=== PATIENT | male | born 1965 | race Caucasian/White ===

== ENCOUNTER 2019-09-29 01:14 | Inpatient (IN) | payer MEDICAID ==
[~2019-09-29] VITALS: Ht 182.9 cm; Wt 65.4 kg
[2019-09-29 02:02] LABS: BASOPHILS 0.5 % (0-2); EOSINOPHILS 1.2 % (0-7); HEMATOCRIT 36.1 % (42.0-54.0); HEMOGLOBIN 11.4 g/dL (13.5-17.5); IMMATURE GRANULOCYTES 0.3 % (0-5); LYMPHOCYTES 16.2 % (15-50); MCH 24.9 pg (26.0-34.0); MCHC 31.6 g/dL (31.0-37.0); MCV 78.8 fL (80.0-100.0); MEAN PLATELET VOLUME 8.4 fL (7.4-10.4); MONOCYTES 11.2 % (2-11); NEUTROPHILS 70.6 % (40-80); PLATELET COUNT 304 10x3/uL (130-400); RBC 4.58 10x6/uL (4.20-6.10); RDW 16.3 % (11.5-14.5)
[2019-09-29 02:08] LABS: UDS - AMPHET POSITIVE QUAL (NEGATIVE); UDS - BARB NEGATIVE QUAL (NEGATIVE); UDS - BENZO NEGATIVE QUAL (NEGATIVE); UDS - COCAINE NEGATIVE QUAL (NEGATIVE); UDS - OPIATE NEGATIVE QUAL (NEGATIVE); UDS - PCP NEGATIVE QUAL (NEGATIVE); UDS - THC NEGATIVE QUAL (NEGATIVE)
[2019-09-29 02:12] LABS: APPEARANCE CLEAR (CLEAR); COLOR YELLOW (YELLOW); GLUCOSE NEGATIVE (NEGATIVE); KETONE NEGATIVE (NEGATIVE); NITRITE NEGATIVE (NEGATIVE); PROTEIN TRACE mg/dL (NEGATIVE)
[2019-09-29 02:13] LABS: BILIRUBIN NEGATIVE (NEGATIVE)
[2019-09-29 02:14] LABS: CALC OSMOLALITY 276 mosm/kg (275-300); CALCIUM 8.6 mg/dL (8.5-10.1); CARBON DIOXIDE 29.6 mmol/L (21.0-32.0); CHLORIDE - SERUM 101 mmol/L (98-107); CREATININE - SERUM 0.7 mg/dL (0.6-1.3); GLUCOSE 95 mg/dL (74-106); POTASSIUM - SERUM 3.5 mmol/L (3.5-5.1); SODIUM 138 mmol/L (136-145); UREA NITROGEN 16 mg/dL (7-18); eGFR NON AFRICAN AMERICAN > 90 mL/min (90-120)
[2019-09-29 02:14] LABS: BACTERIA FEW /hpf (NEGATIVE); CALCIUM OXALATE CRYSTALS 0-5 /hpf (NONE SEEN); EPITHELIAL CELLS 0-5 /hpf (0-5); RED CELLS - URINE 0-5 /hpf (0-5); WHITE CELLS - URINE 0-5 /hpf (NEGATIVE)
[2019-09-29 02:19] LABS: ALBUMIN 2.5 g/dL (3.4-5.0); ALKALINE PHOSPHATASE 121 U/L (46-116); ALT (SGPT) 18 U/L (10-68); AMYLASE - SERUM 28 U/L (25-115); BILIRUBIN - TOTAL 0.34 mg/dL (0.2-1.3); LIPASE 112 U/L (73-393); MAGNESIUM - SERUM 1.9 mg/dL (1.8-2.4); PROTEIN - SERUM 7.6 g/dL (6.4-8.2)
[2019-09-29 05:19] VITALS: BP 162/106; BMI 19.0
[2019-09-29 08:03] VITALS: BP 153/96
--- NOTE | 2019-09-29 09:22 | NUR ---
SPOKE WITH JUAN MONTES TECH. STATED NO TELEMETRY AT THIS TIME. STATED SHE WOULD LET ME KNOW WHEN SOME ARE AVAILABLE.
[2019-09-29 12:15] VITALS: BP 130/88; BMI 19.0
[2019-09-29 15:19] LABS: % SATURATION 10 % (15-55); IRON 22 ug/dl (35-150); TOTAL IRON BIND CAPACITY 203 ug/dl (260-445); UNSAT IRON BIND CAPACITY 181 ug/dl (150-375)
[2019-09-29 15:23] LABS: INR 1.07 (0.85-1.17); PROTIME 13.4 SECONDS (11.6-15.0)
[2019-09-29 17:20] VITALS: BP 143/95
--- NOTE | 2019-09-29 19:00 | NUR ---
GAVE PATIENT PAIN MEDS. EXPLAINED TO PATIENT TO TRY TO DRINK MUCH OF THE GOLYTLEY HE CAN BEFORE MN. PATIENT VERBALIZED UNDERSTANDING. CALL LIGHT WITHIN REACH. IV INTACT.
[2019-09-29 21:00] VITALS: BP 131/82
--- NOTE | 2019-09-29 22:09 | NUR ---
Alert and orented able to voice needs and wants to staff. ON room air, IV to left hand with ns at 125. no redness noted no pain at site. call light and water in reach ABD in distended and frim. denies needs at this time.
[2019-09-30 01:18] VITALS: BP 141/80
[2019-09-30 04:22] VITALS: BP 152/98
[2019-09-30 06:53] LABS: BASOPHILS 0.4 % (0-2); EOSINOPHILS 2.1 % (0-7); HEMATOCRIT 33.9 % (42.0-54.0); HEMOGLOBIN 10.5 g/dL (13.5-17.5); IMMATURE GRANULOCYTES 0.2 % (0-5); LYMPHOCYTES 16.7 % (15-50); MCH 24.2 pg (26.0-34.0); MCV 78.3 fL (80.0-100.0); MEAN PLATELET VOLUME 8.9 fL (7.4-10.4); MONOCYTES 9.1 % (2-11); NEUTROPHILS 71.5 % (40-80); PLATELET COUNT 359 10x3/uL (130-400); RBC 4.33 10x6/uL (4.20-6.10); RDW 16.4 % (11.5-14.5); WBC 5.3 10x3/uL (4.8-10.8)
[2019-09-30 07:24] LABS: CALC OSMOLALITY 273 mosm/kg (275-300); CALCIUM 7.8 mg/dL (8.5-10.1); CARBON DIOXIDE 25.4 mmol/L (21.0-32.0); CHLORIDE - SERUM 103 mmol/L (98-107); CREATININE - SERUM 0.6 mg/dL (0.6-1.3); GLUCOSE 83 mg/dL (74-106); MAGNESIUM - SERUM 1.7 mg/dL (1.8-2.4); PHOSPHOROUS 3.9 mg/dL (2.5-4.9); POTASSIUM - SERUM 3.7 mmol/L (3.5-5.1); SODIUM 138 mmol/L (136-145); eGFR NON AFRICAN AMERICAN > 90 mL/min (90-120)
[2019-09-30 07:29] LABS: UREA NITROGEN 10 mg/dL (7-18)
--- NOTE | 2019-09-30 07:40 | NUR ---
PT RESTING IN BED WITH EYES CLOSED. OPENS EYES SPONTANEOUSLY. RESP EVEN AND UNLABORED. REPORTS PAIN 5/10 AT THIS TMIE. IV TO LEFT FOREARM WITH NS @ 125ML/HR INFUSING VIA PUMP. SITE WITHOUT REDNESS OR EDEMA. ABDOMEN DISTENDED. PT REPORTS BEING NPO SINCE MIDNIGHT FOR UPCOMING PROCEDURE. PT DENIES FURTHER NEEDS AT THIS TIME. CL WITHIN REACH. ENCOURAGE TO CALL WITH NEEDS. CONTINUE POC
[2019-09-30 09:13] LABS: ALPHA FETOPROTEIN -(TUMOR MRK) 1.3 ng/mL (0.0-8.3); CEA 117.8 ng/mL (0.0-4.7)
[2019-09-30 09:22] VITALS: BP 140/82
[2019-09-30 12:28] VITALS: BP 151/91
[2019-09-30 13:13] VITALS: Ht 182.9 cm; Wt 65.4 kg
[2019-09-30 20:14] VITALS: BP 116/83
--- NOTE | 2019-09-30 21:49 | NUR ---
PATIENT IS ALERT AND ORENTED ABLE TO VOICE NEEDS AND WANTS TO STAFF, IV TO LEFT FA WITH NS AT 125ML/HR. NO REDNESS AT IV SITE DENIES PAIN AT SITE. ABDOM IN DISTENDED AND FRIM. RUDD CATH IN PLACE WITH DARK MELBA URINE TO BAG. TELEMETRY IN PLACE. CALL LIGHT AND WATER IN REACH AT BEDSIDE.
[2019-10-01 00:37] VITALS: BP 137/78
[2019-10-01 04:48] VITALS: BP 133/86
[2019-10-01 06:31] LABS: BASOPHILS 0.2 % (0-2); EOSINOPHILS 1.3 % (0-7); HEMATOCRIT 35.4 % (42.0-54.0); HEMOGLOBIN 10.9 g/dL (13.5-17.5); IMMATURE GRANULOCYTES 0.2 % (0-5); LYMPHOCYTES 16.9 % (15-50); MCH 24.3 pg (26.0-34.0); MCHC 30.8 g/dL (31.0-37.0); MCV 78.8 fL (80.0-100.0); MEAN PLATELET VOLUME 9.3 fL (7.4-10.4); MONOCYTES 9.3 % (2-11); NEUTROPHILS 72.1 % (40-80); PLATELET COUNT 339 10x3/uL (130-400); RBC 4.49 10x6/uL (4.20-6.10); RDW 16.6 % (11.5-14.5); WBC 5.4 10x3/uL (4.8-10.8)
[2019-10-01 06:55] LABS: CALC OSMOLALITY 270 mosm/kg (275-300); CALCIUM 7.6 mg/dL (8.5-10.1); CARBON DIOXIDE 26.1 mmol/L (21.0-32.0); CHLORIDE - SERUM 103 mmol/L (98-107); CREATININE - SERUM 0.7 mg/dL (0.6-1.3); GLUCOSE 79 mg/dL (74-106); MAGNESIUM - SERUM 1.8 mg/dL (1.8-2.4); PHOSPHOROUS 4.2 mg/dL (2.5-4.9); POTASSIUM - SERUM 3.9 mmol/L (3.5-5.1); SODIUM 137 mmol/L (136-145); UREA NITROGEN 8 mg/dL (7-18); eGFR NON AFRICAN AMERICAN > 90 mL/min (90-120)
--- NOTE | 2019-10-01 07:54 | NUR ---
AWAKE AND ALERT. ORIENTED X3. C/O ABDOMINAL PAIN THIS AM. WILL GIVE PRN WHEN DUE. LUNGS ARE CLEAR BUT SOMEWHAT DIMINISHED. NO COUGH NOTED. SKIN IS INTACT WTIHOUT REDNESS. IV TO LEFT AC AREA IS PATENT WTIHOUT REDNESS AT INSERTION SITE. DENIES NEEDS FOR NOW. NPO FOR POSSIBLE SURGERY TODAY.
[2019-10-01 08:06] VITALS: BP 137/80
--- NOTE | 2019-10-01 08:35 | NUR ---
REQUESTED AND GIVNE 4MG MORPHINE SLOW IVP FOR C/O ABDOMINAL PAIN LEVEL 10. WILL MONITOR.
--- NOTE | 2019-10-01 09:05 | NUR ---
OFF UNIT VIA BED TO SURGERY. CONSENTS SIGNED.
--- NOTE | 2019-10-01 09:40 | NUR ---
Nutrition follow-up: Pt NPO for lap colonoscopy 2/2 obstructing mass labs reviewed RDN following.
[2019-10-01 14:05] VITALS: BP 143/86
--- NOTE | 2019-10-01 14:08 | NUR ---
RETURNED FROM SURGERY. A/O. OSTOMY PATENT WITH BLOODY DRAINAGE. DENIES NEEDS.
[2019-10-01 16:44] VITALS: BP 132/87
--- NOTE | 2019-10-01 19:00 | NUR ---
BEDSIDE REPORT RECEIVED AND CARE OF PT ASSUMED. PT LYING IN LOW HINES'S POSITION WITH EYES CLOSED. DRESSING ON MINLINE INCISION INTACT...STAINING / DRAINAGE MARKED. LEFT AC PATENT WITH NS INFUSING AT 125 ML/HR. PERSONAL BANKING ADVISOR WITH DILAUDID IN USE FOR PAIN CONTROL. RUDD CATHETER DRAINING TO GRAVITY WITH YELLOW URINE IN COLLECTION BAG. TELEMETRY IN PLACE. WILL MONITOR FOR NEEDS.
[2019-10-01 20:16] VITALS: BP 128/87
--- NOTE | 2019-10-01 21:34 | NUR ---
HS MEDICATIONS GIVEN. WILL CONTINUE TO MONITOR FOR NEEDS.
--- NOTE | 2019-10-01 21:35 | NUR ---
STARTED PROTONIX DRIP AT 10 ML/HR PER NEW ORDER.
[2019-10-02] VITALS (7 sets, daily range): BP systolic 123–145; BP diastolic 57–89
[2019-10-02 02:18] LABS: BASOPHILS 0.2 % (0-2); EOSINOPHILS 0 % (0-7); HEMATOCRIT 35.1 % (42.0-54.0); HEMOGLOBIN 10.8 g/dL (13.5-17.5); IMMATURE GRANULOCYTES 0.3 % (0-5); LYMPHOCYTES 12.4 % (15-50); MCH 24.4 pg (26.0-34.0); MCHC 30.8 g/dL (31.0-37.0); MCV 79.2 fL (80.0-100.0); MEAN PLATELET VOLUME 8.9 fL (7.4-10.4); MONOCYTES 11.5 % (2-11); NEUTROPHILS 75.6 % (40-80); PLATELET COUNT 350 10x3/uL (130-400); RBC 4.43 10x6/uL (4.20-6.10); RDW 16.6 % (11.5-14.5); WBC 6.5 10x3/uL (4.8-10.8)
[2019-10-02 02:23] LABS: CALC OSMOLALITY 271 mosm/kg (275-300); CALCIUM 8.3 mg/dL (8.5-10.1); CARBON DIOXIDE 22.9 mmol/L (21.0-32.0); CHLORIDE - SERUM 103 mmol/L (98-107); CREATININE - SERUM 0.8 mg/dL (0.6-1.3); GLUCOSE 110 mg/dL (74-106); MAGNESIUM - SERUM 1.6 mg/dL (1.8-2.4); SODIUM 136 mmol/L (136-145); eGFR NON AFRICAN AMERICAN > 90 mL/min (90-120)
[2019-10-02 02:28] LABS: UREA NITROGEN 11 mg/dL (7-18)
--- NOTE | 2019-10-02 08:06 | NUR ---
PT RESTING IN BED WITH EYES OPEN, NO S/S OF DISTRESS AT THIS TIME. COLOSTOMY LOCATED TO LLQ. IV LOCATED TO LEFT AC CURRENTLY RUNNING @ 125, PROTONIX @ 10, AND DILAUDID ROLL HAULER PRESENT 0.2. RUDD CATH PRESENT. DENIES NEEDS AT THIS TIME, WILL CONT TO MONITOR.
[2019-10-02 12:44] LABS: HEMATOCRIT 33.3 % (42.0-54.0); HEMOGLOBIN 10.5 g/dL (13.5-17.5)
--- NOTE | 2019-10-02 19:00 | NUR ---
BEDSIDE REPORT RECEIVED AND CARE OF PT ASSUMED. PT LYING IN LOW HINES'S POSITION WITH EYES CLOSED. IV TO LEFT AC PATENT WITH NS INFUSING AT 125 ML/HR, PROTONIX AT 10ML/HR, AND DILAUDID DIRECTOR OF WORKFORCE DEVELOPMENT IN USE FOR PAIN CONTROL. TELEMETRY IN PLACE PER ORDER. DRESSING ON ABDOMEN INTACT. WILL MONITOR FOR NEEDS.
[2019-10-02 19:33] LABS: HEMATOCRIT 31.2 % (42.0-54.0); HEMOGLOBIN 9.6 g/dL (13.5-17.5)
--- NOTE | 2019-10-02 20:40 | NUR ---
HS MEDICATIONS GIVEN TO INCLUDE ONE TIME DOSE OF ATIVAN 1 MG IVP PER ORDER. WILL CONTINUE TO MONITOR FOR NEEDS.
[2019-10-03 01:38] LABS: BASOPHILS 0.2 % (0-2); EOSINOPHILS 0.5 % (0-7); HEMATOCRIT 30.6 % (42.0-54.0); HEMOGLOBIN 9.5 g/dL (13.5-17.5); IMMATURE GRANULOCYTES 0.3 % (0-5); LYMPHOCYTES 9.4 % (15-50); MCH 24.5 pg (26.0-34.0); MCV 78.9 fL (80.0-100.0); MEAN PLATELET VOLUME 8.3 fL (7.4-10.4); MONOCYTES 11.4 % (2-11); NEUTROPHILS 78.2 % (40-80); RBC 3.88 10x6/uL (4.20-6.10); RDW 16.9 % (11.5-14.5); WBC 6.3 10x3/uL (4.8-10.8)
[2019-10-03 01:41] LABS: PLATELET COUNT 273 10x3/uL (130-400)
[2019-10-03 01:50] LABS: CALC OSMOLALITY 272 mosm/kg (275-300); CALCIUM 7.7 mg/dL (8.5-10.1); CARBON DIOXIDE 25.5 mmol/L (21.0-32.0); CHLORIDE - SERUM 102 mmol/L (98-107); CREATININE - SERUM 0.6 mg/dL (0.6-1.3); GLUCOSE 92 mg/dL (74-106); MAGNESIUM - SERUM 1.9 mg/dL (1.8-2.4); POTASSIUM - SERUM 3.8 mmol/L (3.5-5.1); SODIUM 137 mmol/L (136-145); UREA NITROGEN 10 mg/dL (7-18); eGFR NON AFRICAN AMERICAN > 90 mL/min (90-120)
[2019-10-03 02:05] LABS: PHOSPHOROUS 3.1 mg/dL (2.5-4.9)
[2019-10-03 04:00] VITALS: BP 150/97
--- NOTE | 2019-10-03 04:56 | NUR ---
GAVE HYDRALAZINE IVP FOR ELEVATED BLOOD PRESSURE OF 150/97 PER PRN ORDER.
[2019-10-03 08:40] VITALS: BP 125/91
--- NOTE | 2019-10-03 09:00 | NUR ---
ALERT AND ORIENTED X4 WITH ABDOMINAL DRESSINGS INTACT WITH COLOSTOMY INTACT AND MONITORING OUTPUT. TELEMETRY INTACT AND DENEIS ANY CHEST PAIN OR DISCOMFORT. ESTATE PLANNING ATTORNEY DILAUDID ORDERED. ENCOURAGED TO USE CALLL LIGHT FOR ASSIST.
[2019-10-03 13:22] VITALS: BP 131/92
[2019-10-03 16:46] VITALS: BP 145/92
--- NOTE | 2019-10-03 17:18 | MORECARE ---
CASE MANAGEMENT DISCHARGE SUMMARY PATIENT: ZEINAB ORTIZ UNIT: [id number] ADM DATE: 09/29/19 AGE: 54 : 65 SEX: M ROOM/BED: D.2228 AUTHOR: JULIA ROJAS PHYSICIAN: REFERRING PHYSICIAN: RON PARRY MD DATE OF SERVICE: 10/03/19 Discharge Plan Patient Name: ZEINAB ORTIZ Facility: [facility]:[place] : 1965 Planned Disposition: Anticipated Discharge Date: Discharge Date: Expected LOS: Initial Reviewer: [email or web address] Initial Review Date: 10/03/2019 Generated: 10/03/19 6:17 pm External Providers External Provider: [facility] Next Contact Date: Service Request Date: Service Type: Resolution: Reviewer: Comments: Patient Name: ZEINAB ORTIZ Page 44663 at 1718 All edits/amendments must be made on the electronic document DICTATION DATE: 10/03/191716 CONVEYOR WORKER: RIKI 10/03/191716 RPT#: [id number] DC DATE: STATUS: ADM IN [facility] [address] [place] [address] END OF REPORT
--- NOTE | 2019-10-03 17:24 | MORECARE ---
CASE MANAGEMENT DISCHARGE SUMMARY PATIENT: ZEINAB ORTIZ UNIT: [id number] ADM DATE: 09/29/19 AGE: 54 : 65 SEX: M ROOM/BED: D.2228 AUTHOR: JULIA ROJAS PHYSICIAN: REFERRING PHYSICIAN: RON PARRY MD DATE OF SERVICE: 10/03/19 Discharge Plan Patient Name: ZEINAB ORTIZ Facility: [facility]:[place] : 1965 Planned Disposition: Anticipated Discharge Date: Discharge Date: Expected LOS: Initial Reviewer: [email or web address] Initial Review Date: 10/03/2019 Generated: 10/03/19 6:24 pm Comments DCP- Discharge Planning Updated by [email or web address]: Collette Rowland on 10/03/19 4:[address] Patient Name: ZEINAB ORTIZ Admission Status: ER Accout number: [id number] Admission Date: 09-29-2019 : 1965 Admission Diagnosis:MALIGNANT NEOPLASM OF COLON, UNSPECIFIED Attending: RON PARRY Current LOS: 4 Anticipated DC Date: Planned Disposition: Primary Insurance: MEDICAID [place] PENDING Discharge Planning Comments: CM met with patient at bedside after explaining CM role and obtaining verbal consent. CM discussed availability / needs of home health, REHAB , HOSPICE AND medical equipment. PATIENT WOULD LIKE [facility] AT THEIR INPATIENT FACILITY IF POSSIBLE. I HAVE CONTACTED MARQUIS WITH [facility] AND FAXED DOCUMENTS TO THEM. THEY ARE PROCESSING IT AND PLANNING TO SEND THEIR NURSE OUT IN SEVERAL HOURS. I ALSO GAVE PATIENT BROSHURES. CM WILL FOLLOW AND ASSIST NEEDED. Topper Press Operator: Collette Rowland Last DP export: 10/03/19 4:18 Patient Name: ZEINAB ORTIZ Page 44032 at 5274 All edits/amendments must be made on the electronic document DICTATION DATE: 10/03/191723 ANNEALING TORCH OPERATOR: RIKI 10/03/191723 RPT#: [id number] DC DATE: STATUS: ADM IN [facility] [id number] [place] [address] END OF REPORT
--- NOTE | 2019-10-03 19:00 | NUR ---
BEDSIDE REPORT RECEIVED AND CARE OF PT ASSUMED. PT LYING IN LOW HINES'S POSITION WITH EYES CLOSED. IV TO LEFT AC PATENT WITH NS INFUSING AT 125 ML/HR. ACCOUNT INSTALLER W/ DILAUDID IN USE FOR PAIN CONTROL. RUDD CATHETER DRAINING TO GRAVITY WITH YELLOW URINE IN COLLECION BAG. OSTOMY STOMA PINK AND MOIST WITH SMALL AMOUNT OF BLOODY DRAINAGE IN COLLECTION BAG. WILL MONITOR FOR NEEDS.
--- NOTE | 2019-10-03 19:12 | MORECARE ---
CASE MANAGEMENT DISCHARGE SUMMARY PATIENT: ZEINAB ORTIZ UNIT: [id number] ADM DATE: 09/29/19 AGE: 54 : 65 SEX: M ROOM/BED: D.2228 AUTHOR: BOBDOC PHYSICIAN: REFERRING PHYSICIAN: RON PARRY MD DATE OF SERVICE: 10/03/19 Discharge Plan Patient Name: ZEINAB ORTIZ Facility: [facility]:[place] : 1965 Planned Disposition: Anticipated Discharge Date: Discharge Date: Expected LOS: Initial Reviewer: [email or web address] Initial Review Date: 10/03/2019 Generated: 10/03/19 8:12 pm Comments DCP- Discharge Planning Updated by [email or web address]: Collette Rowland on 10/03/19 6:[address] Patient Name: ZEINAB ORTIZ Admission Status: ER Accout number: [id number] Admission Date: 09-29-2019 : 1965 Admission Diagnosis:MALIGNANT NEOPLASM OF COLON, UNSPECIFIED Attending: RON PARRY Current LOS: 4 Anticipated DC Date: Planned Disposition: Primary Insurance: MEDICAID [place] PENDING Discharge Planning Comments: CM met with patient at bedside after explaining CM role and obtaining verbal consent. CM discussed availability / needs of home health, REHAB , HOSPICE AND medical equipment. PATIENT WOULD LIKE [facility] AT THEIR INPATIENT FACILITY IF POSSIBLE. I HAVE CONTACTED MARQUIS WITH [facility] AND FAXED DOCUMENTS TO THEM. THEY ARE PROCESSING IT AND PLANNING TO SEND THEIR NURSE OUT IN SEVERAL HOURS. I ALSO GAVE PATIENT BROSHURES. CM WILL FOLLOW AND ASSIST NEEDED. 4 H Youth Development Specialist: Collette Rowland Appended by Collette Rowland on 10/03/2019 19:09 CANDY SPREADER: JAMES RN WITH [facility] CAME OUT TO ASSES PATIENT. IT DOESN'T LOOK LIKE HE IS APPROPRIATE FOR THEIR INPATIENT UNIT RIGHT NOW. STATES WE NEED TO WORK ON PLACEMENT FOR HIM AND THEY ARE STARTING THEIR ADMISSION PROCESS. SOME OPTIONS FOR PLACEMENT MAY BE [facility], [facility], [facility] OR [facility]. JAMES STATES PATIENT WANTS TO THINK ON IT OVER NIGHT. HOSPICE WILL SEND AN ACCESS NURSE OUT TOMORROW AND WILL TALK TO US AND THE PATIENT. CM TO FOLLOW AND ASSIST. Last DP export: 10/03/19 4:24 Patient Name: ZEINAB ORTIZ Page 42600 at 191 All edits/amendments must be made on the electronic document DICTATION DATE: 10/03/191911 GROCERY STORE BAGGER: RIKI 10/03/191911 RPT#: [id number] DC DATE: STATUS: ADM IN [facility] [address] [place] [address] END OF REPORT
[2019-10-03 20:11] VITALS: BP 146/93
--- NOTE | 2019-10-03 20:43 | NUR ---
HS MEDICAITONS GIVEN TO INCLUDE SCHEDULED ATIVAN FOR SLEEP. WILL CONTINUE TO MONITOR FOR NEEDS.
[2019-10-04 00:52] VITALS: BP 138/91
[2019-10-04 05:19] VITALS: BP 140/102
[2019-10-04 06:07] LABS: BASOPHILS 0.2 % (0-2); EOSINOPHILS 0.5 % (0-7); HEMATOCRIT 30.3 % (42.0-54.0); HEMOGLOBIN 9.3 g/dL (13.5-17.5); IMMATURE GRANULOCYTES 0.2 % (0-5); MCHC 30.7 g/dL (31.0-37.0); MCV 78.1 fL (80.0-100.0); MEAN PLATELET VOLUME 8.7 fL (7.4-10.4); MONOCYTES 8.7 % (2-11); NEUTROPHILS 79.4 % (40-80); RBC 3.88 10x6/uL (4.20-6.10); RDW 16.8 % (11.5-14.5)
[2019-10-04 06:19] LABS: PLATELET COUNT 360 10x3/uL (130-400)
[2019-10-04 06:43] LABS: CALC OSMOLALITY 263 mosm/kg (275-300); CALCIUM 7.9 mg/dL (8.5-10.1); CARBON DIOXIDE 27.6 mmol/L (21.0-32.0); CHLORIDE - SERUM 100 mmol/L (98-107); CREATININE - SERUM 0.6 mg/dL (0.6-1.3); GLUCOSE 98 mg/dL (74-106); MAGNESIUM - SERUM 1.7 mg/dL (1.8-2.4); PHOSPHOROUS 3.3 mg/dL (2.5-4.9); POTASSIUM - SERUM 3.3 mmol/L (3.5-5.1); SODIUM 132 mmol/L (136-145); UREA NITROGEN 9 mg/dL (7-18); eGFR NON AFRICAN AMERICAN > 90 mL/min (90-120)
--- NOTE | 2019-10-04 07:43 | NUR ---
ALERT AND ORIENTED. LUNGS CLEAR BILATERALLY. HEART SOUNDS S1 AND S2 HEARD IN ALL [place]. BOWEL SOUNDS HYPOACTIVE X 4. LEFT SIDE OSTOMY PATENT. IV TO LEFT AC PATENT WITHOUT REDNESS. RIGHT CHEST PORT PATENT WITHOUT REDNESS. DENIES PAIN. DENIES NEEDS. BED LOW. CALL YATES AND PERSONAL ITEMS IN REACH. WILL CONTINUE TO MONITOR.
--- NOTE | 2019-10-04 07:49 | NUR ---
ADDITION TO PREVIOUS NOTE. RUDD IN PLACE AND PATENT. TELEMETRY IN PLACE AT .
[2019-10-04 07:59] VITALS: BP 169/101
--- NOTE | 2019-10-04 08:24 | NUR ---
BOLUS DOSE GIVEN FROM FIREPOT OPERATOR AND TENDER PER REQUEST. 0.4MG BOLUS GIVEN PER ORDER. PRN ZOFRAN GIVEN PER REQUEST.
--- NOTE | 2019-10-04 09:48 | MORECARE ---
CASE MANAGEMENT DISCHARGE SUMMARY PATIENT: ZEINAB ORTIZ UNIT: [id number] ADM DATE: 09/29/19 AGE: 54 : 65 SEX: M ROOM/BED: D.2228 AUTHOR: JULIA ROJAS PHYSICIAN: REFERRING PHYSICIAN: RON PARRY MD DATE OF SERVICE: 10/04/19 Discharge Plan Patient Name: ZEINAB ORTIZ Facility: [facility]:[place] : 1965 Planned Disposition: Anticipated Discharge Date: Discharge Date: Expected LOS: Initial Reviewer: [email or web address] Initial Review Date: 10/03/2019 Generated: 10/04/19 10:47 am Comments DCP- Discharge Planning Updated by [email or web address]: Soraida Crabtree on 10/04/19 8:[address] CM went to room to meet with patient and he has asked me to come back this afternoon, states he is tired. I will come back at a later time to discuss housing options/homeless shelters. CM will continue to follow and assist with discharge planning/needs. DCP- Discharge Planning Updated by [email or web address]: Collette Rowland on 10/03/19 6:[address] Patient Name: ZEINAB ORTIZ Admission Status: ER Accout number: [id number] Admission Date: 09-29-2019 : 1965 Admission Diagnosis:MALIGNANT NEOPLASM OF COLON, UNSPECIFIED Attending: RON PARRY Current LOS: 4 Anticipated DC Date: Planned Disposition: Primary Insurance: MEDICAID [place] PENDING Discharge Planning Comments: CM met with patient at bedside after explaining CM role and obtaining verbal consent. CM discussed availability / needs of home health, REHAB , HOSPICE AND medical equipment. PATIENT WOULD LIKE [facility] AT THEIR INPATIENT FACILITY IF POSSIBLE. I HAVE CONTACTED MARQUIS WITH [facility] AND FAXED DOCUMENTS TO THEM. THEY ARE PROCESSING IT AND PLANNING TO SEND THEIR NURSE OUT IN SEVERAL HOURS. I ALSO GAVE PATIENT BROSHURES. CM WILL FOLLOW AND ASSIST NEEDED. Slip Cover Seamstress: Collette Rowland Appended by Collette Rowland on 10/03/2019 19:09 CITY SURVEYOR: JAMES RN WITH [facility] CAME OUT TO ASSES PATIENT. IT DOESN'T LOOK LIKE HE IS APPROPRIATE FOR THEIR INPATIENT UNIT RIGHT NOW. STATES WE NEED TO WORK ON PLACEMENT FOR HIM AND THEY ARE STARTING THEIR ADMISSION PROCESS. SOME OPTIONS FOR PLACEMENT MAY BE [facility], [place], [facility] OR [facility]. JAMES STATES PATIENT WANTS TO THINK ON IT OVER NIGHT. HOSPICE WILL SEND AN ACCESS NURSE OUT TOMORROW AND WILL TALK TO US AND THE PATIENT. CM TO FOLLOW AND ASSIST. Last DP export: 10/03/19 6:13 Patient Name: ZEINAB ORTIZ Page 61338 at 0948 All edits/amendments must be made on the electronic document DICTATION DATE: 10/04/19946 MANAGER FIELD SERVICES: RIKI 10/04/19946 RPT#: [id number] DC DATE: STATUS: ADM IN [facility] [address] [place] [address] END OF REPORT
[2019-10-04 12:50] VITALS: BP 166/78
--- NOTE | 2019-10-04 13:45 | NUR ---
RESTING IN BED. DENIES NEEDS. ZOFRAN DRIP SET UP. POTASSIUM GIVEN FOR K 3.1 REDRAW. OSTOMY WITH SMALL AMOUNT OF BLOOD IN BAG. WILL CONTINUE TO MONITOR.
--- NOTE | 2019-10-04 14:58 | NUR ---
Information packet given on understanding your ostomy. Will return for any questions and demonstration on removal and application of appliance.
[2019-10-04 16:08] VITALS: BP 132/103
--- NOTE | 2019-10-04 16:47 | MORECARE ---
CASE MANAGEMENT DISCHARGE SUMMARY PATIENT: ZEINAB ORTIZ UNIT: [id number] ADM DATE: 09/29/19 AGE: 54 : 65 SEX: M ROOM/BED: D.2228 AUTHOR: BOBDOC PHYSICIAN: REFERRING PHYSICIAN: RON PARRY MD DATE OF SERVICE: 10/04/19 Discharge Plan Patient Name: ZEINAB ORTIZ Facility: [facility]:[place] : 1965 Planned Disposition: Anticipated Discharge Date: Discharge Date: Expected LOS: Initial Reviewer: [id number] Initial Review Date: 10/03/2019 Generated: 10/04/19 5:47 pm Comments DCP- Discharge Planning Updated by [email or web address]: Soraidaambreen Crabtree on 10/04/19 3:[address] Patient is sleeping. I will meet with him in the morning. CM will continue to follow and assist with discharge planning/needs. DCP- Discharge Planning Updated by [id number]: Soraida Crabtree on 10/04/19 8:[address] CM went to room to meet with patient and he has asked me to come back this afternoon, states he is tired. I will come back at a later time to discuss housing options/homeless shelters. CM will continue to follow and assist with discharge planning/needs. DCP- Discharge Planning Updated by [id number]: Collette Rowland on 10/03/19 6:[address] Patient Name: ZEINAB ORTIZ Admission Status: ER Accout number: [id number] Admission Date: 09-29-2019 : 1965 Admission Diagnosis:MALIGNANT NEOPLASM OF COLON, UNSPECIFIED Attending: RON PARRY Current LOS: 4 Anticipated DC Date: Planned Disposition: Primary Insurance: MEDICAID [place] PENDING Discharge Planning Comments: CM met with patient at bedside after explaining CM role and obtaining verbal consent. CM discussed availability / needs of home health, REHAB , HOSPICE AND medical equipment. PATIENT WOULD LIKE [facility] AT THEIR INPATIENT FACILITY IF POSSIBLE. I HAVE CONTACTED MARQUIS WITH [facility] AND FAXED DOCUMENTS TO THEM. THEY ARE PROCESSING IT AND PLANNING TO SEND THEIR NURSE OUT IN SEVERAL HOURS. I ALSO GAVE PATIENT BROSHURES. CM WILL FOLLOW AND ASSIST NEEDED. Rheumatology Specialist: Collette Rowland Appended by Collette Rowland on 10/03/2019 19:09 DISC INSPECTOR: JAMES RN WITH [facility] CAME OUT TO ASSES PATIENT. IT DOESN'T LOOK LIKE HE IS APPROPRIATE FOR THEIR INPATIENT UNIT RIGHT NOW. STATES WE NEED TO WORK ON PLACEMENT FOR HIM AND THEY ARE STARTING THEIR ADMISSION PROCESS. SOME OPTIONS FOR PLACEMENT MAY BE [facility], [facility], [facility] OR [facility]. JAMES STATES PATIENT WANTS TO THINK ON IT OVER NIGHT. HOSPICE WILL SEND AN ACCESS NURSE OUT TOMORROW AND WILL TALK TO US AND THE PATIENT. CM TO FOLLOW AND ASSIST. Last DP export: 10/04/19 8:48 Patient Name: ZEINAB ORTIZ Page 14708 at 3237 All edits/amendments must be made on the electronic document DICTATION DATE: 10/04/191646 YARN TWISTER: RIKI 10/04/191646 RPT#: [id number] DC DATE: STATUS: ADM IN [facility] [address] [place] [address] END OF REPORT
--- NOTE | 2019-10-04 17:36 | NUR ---
RESTING IN BED. DENIES NEEDS. WILL CONTINUE TO MONITOR.
--- NOTE | 2019-10-04 19:01 | NUR ---
RESTING IN BED. DENIES NEEDS. BED LOW. CALL YATES AND PERSONAL ITEMS IN REACH.
--- NOTE | 2019-10-04 20:00 | NUR ---
ASSESSMENT PER FLOWSHEET. IV PATENT LEFT AC WITH NS AT 125CC'S/HR RT CHEST INFUSAPORT IS SALINE LOCKED. RUDD TO BEDSIDE DRAINAGE WITH MELBA COLORED UA.BUSINESS SERVICES ANALYST OF DILAUDID IN USE WITH SETTINGS AT 0.2MG Q10MIN W/4MG Q4HR L/O.COLOSTOMY IN PLACE.
[2019-10-04 20:42] VITALS: BP 140/95
--- NOTE | 2019-10-04 22:00 | NUR ---
MEDS PER MAR.
--- NOTE | 2019-10-05 | NUR ---
EYES CLOSED RESPIRATIONS WITH EASE AND UNLABORED. ZOFRAN GTT INFUSING AT 4.7CC'S/HR.
[2019-10-05 01:06] VITALS: BP 140/81
--- NOTE | 2019-10-05 04:00 | NUR ---
EYES CLOSED RESPIRATIONS WITH EASE AND UNLABORED.
[2019-10-05 04:49] VITALS: BP 144/92
[2019-10-05 06:39] LABS: BASOPHILS 0.3 % (0-2); EOSINOPHILS 1.6 % (0-7); HEMATOCRIT 28.9 % (42.0-54.0); HEMOGLOBIN 8.9 g/dL (13.5-17.5); IMMATURE GRANULOCYTES 0.3 % (0-5); LYMPHOCYTES 15.2 % (15-50); MCH 24.4 pg (26.0-34.0); MCHC 30.8 g/dL (31.0-37.0); MCV 79.2 fL (80.0-100.0); MEAN PLATELET VOLUME 8.8 fL (7.4-10.4); MONOCYTES 9.3 % (2-11); NEUTROPHILS 73.3 % (40-80); PLATELET COUNT 369 10x3/uL (130-400); RBC 3.65 10x6/uL (4.20-6.10); RDW 16.7 % (11.5-14.5)
[2019-10-05 06:46] LABS: WBC 3.9 10x3/uL (4.8-10.8)
[2019-10-05 06:48] LABS: CALC OSMOLALITY 279 mosm/kg (275-300); CALCIUM 7.6 mg/dL (8.5-10.1); CARBON DIOXIDE 28.9 mmol/L (21.0-32.0); CHLORIDE - SERUM 106 mmol/L (98-107); CREATININE - SERUM 0.7 mg/dL (0.6-1.3); GLUCOSE 103 mg/dL (74-106); POTASSIUM - SERUM 4.3 mmol/L (3.5-5.1); SODIUM 141 mmol/L (136-145); UREA NITROGEN 10 mg/dL (7-18); eGFR NON AFRICAN AMERICAN > 90 mL/min (90-120)
--- NOTE | 2019-10-05 07:20 | NUR ---
ALERT AND ORIENTED. LUNGS CLEAR BILATERALLY. HEART SOUNDS S1 AND S2 HEARD IN ALL BAROL[place]. BOWEL SOUNDS HYPOACTIVE X 4. LEFT SIDE OSTOMY PATENT. RIGHT CHEST PORT SL. LEFT AC PATENT WITHOUT REDNESS. RUDD IN PLACE AND PATENT. TELEMETRY IN PLACE. DENIES NEEDS. BED LOW. CALL YATES AND PERSONAL ITEMS IN REACH. WILL CONTINUE TO MONITOR.
[2019-10-05 09:05] VITALS: BP 148/91
--- NOTE | 2019-10-05 09:24 | MORECARE ---
CASE MANAGEMENT DISCHARGE SUMMARY PATIENT: ZEINAB ORTIZ UNIT: [id number] ADM DATE: 09/29/19 AGE: 54 : 65 SEX: M ROOM/BED: D.2228 AUTHOR: JULIA ROJAS PHYSICIAN: REFERRING PHYSICIAN: RON PARRY MD DATE OF SERVICE: 10/05/19 Discharge Plan Patient Name: ZEINAB ORTIZ Facility: [facility]:[place] : 1965 Planned Disposition: Hospice Medical Facility Anticipated Discharge Date: Discharge Date: Expected LOS: Initial Reviewer: [email or web address] Initial Review Date: 10/03/2019 Generated: 10/05/19 10:24 am Comments DCP- Discharge Planning Updated by [email or web address]: Soraida Crabtree on 10/04/19 3:[address] Patient is sleeping. I will meet with him in the morning. CM will continue to follow and assist with discharge planning/needs. DCP- Discharge Planning Updated by [email or web address]: Soraida Crabtree on 10/04/19 8:[address] CM went to room to meet with patient and he has asked me to come back this afternoon, states he is tired. I will come back at a later time to discuss housing options/homeless shelters. CM will continue to follow and assist with discharge planning/needs. DCP- Discharge Planning Updated by [id number]: Collette Rowland on 10/03/19 6:[address] Patient Name: ZEINAB ORTIZ Admission Status: ER Accout number: [id number] Admission Date: 09-29-2019 : 1965 Admission Diagnosis:MALIGNANT NEOPLASM OF COLON, UNSPECIFIED Attending: RON PARRY Current LOS: 4 Anticipated DC Date: Planned Disposition: Primary Insurance: MEDICAID [place] PENDING Discharge Planning Comments: CM met with patient at bedside after explaining CM role and obtaining verbal consent. CM discussed availability / needs of home health, REHAB , HOSPICE AND medical equipment. PATIENT WOULD LIKE [facility] AT THEIR INPATIENT FACILITY IF POSSIBLE. I HAVE CONTACTED MARQUIS WITH [facility] AND FAXED DOCUMENTS TO THEM. THEY ARE PROCESSING IT AND PLANNING TO SEND THEIR NURSE OUT IN SEVERAL HOURS. I ALSO GAVE PATIENT BROSHURES. CM WILL FOLLOW AND ASSIST NEEDED. Machine Maintenance: Collette Rowland Appended by Collette Rowland on 10/03/2019 19:09 CHILD PROTECTIVE SERVICES SOCIAL WORKER: JAMES RN WITH [facility] CAME OUT TO ASSES PATIENT. IT DOESN'T LOOK LIKE HE IS APPROPRIATE FOR THEIR INPATIENT UNIT RIGHT NOW. STATES WE NEED TO WORK ON PLACEMENT FOR HIM AND THEY ARE STARTING THEIR ADMISSION PROCESS. SOME OPTIONS FOR PLACEMENT MAY BE [facility], [facility], [facility] OR [facility]. JAMES STATES PATIENT WANTS TO THINK ON IT OVER NIGHT. HOSPICE WILL SEND AN ACCESS NURSE OUT TOMORROW AND WILL TALK TO US AND THE PATIENT. CM TO FOLLOW AND ASSIST. Last DP export: 10/04/19 3:47 Patient Name: ZEINAB ORTIZ Page [id number] at 0924 All edits/amendments must be made on the electronic document DICTATION DATE: 10/05/19923 HIM TECH: RIKI 10/05/19923 RPT#: [id number] DC DATE: STATUS: ADM IN [facility] [address] [place] [address] END OF REPORT
--- NOTE | 2019-10-05 09:32 | MORECARE ---
CASE MANAGEMENT DISCHARGE SUMMARY PATIENT: ZEINAB ORTIZ UNIT: [id number] ADM DATE: 09/29/19 AGE: 54 : 65 SEX: M ROOM/BED: D.2228 AUTHOR: JULIA ROJAS PHYSICIAN: REFERRING PHYSICIAN: RON PARRY MD DATE OF SERVICE: 10/05/19 Discharge Plan Patient Name: ZEINAB ORTIZ Facility: [facility]:[place] : 1965 Planned Disposition: Hospice Medical Facility Anticipated Discharge Date: Discharge Date: Expected LOS: Initial Reviewer: [email or web address] Initial Review Date: 10/03/2019 Generated: 10/05/19 10:31 am Comments DCP- Discharge Planning Updated by [email or web address]: Soraida Crabtree on 10/05/19 8:[address] CM met with patient to discuss discharge plan. I instructed him on going to a LTC mcfp with his Medicaid vs LTC mcfp for hospice. He states he has decided to do mcfp with [facility] at this time. I called [facility] and spoke with Jaden, he states he will come out this afternoon to see the patient. HAKEEM for [facility] signed. I messaged Octavia Fonseca with [facility] and informed her and clinical faxed. CM will continue to follow and assist with discharge planning/needs. DCP- Discharge Planning Updated by [id number]: Soraida Crabtree on 10/04/19 3:[address] Patient is sleeping. I will meet with him in the morning. CM will continue to follow and assist with discharge planning/needs. DCP- Discharge Planning Updated by [email or web address]: Soraida Crabtree on 10/04/19 8:[address] CM went to room to meet with patient and he has asked me to come back this afternoon, states he is tired. I will come back at a later time to discuss housing options/homeless shelters. CM will continue to follow and assist with discharge planning/needs. DCP- Discharge Planning Updated by [email or web address]: Collette Rowland on 10/03/19 6:[address] Patient Name: ZEINAB ORTIZ Admission Status: ER Accout number: [id number] Admission Date: 09-29-2019 : 1965 Admission Diagnosis:MALIGNANT NEOPLASM OF COLON, UNSPECIFIED Attending: RON PARRY Current LOS: 4 Anticipated DC Date: Planned Disposition: Primary Insurance: MEDICAID [place] PENDING Discharge Planning Comments: CM met with patient at bedside after explaining CM role and obtaining verbal consent. CM discussed availability / needs of home health, REHAB , HOSPICE AND medical equipment. PATIENT WOULD LIKE [facility] AT THEIR INPATIENT FACILITY IF POSSIBLE. I HAVE CONTACTED MARQUIS WITH [facility] AND FAXED DOCUMENTS TO THEM. THEY ARE PROCESSING IT AND PLANNING TO SEND THEIR NURSE OUT IN SEVERAL HOURS. I ALSO GAVE PATIENT BROSHURES. CM WILL FOLLOW AND ASSIST NEEDED. Machine Set Up: Collette Rowland Appended by Collette Rowland on 10/03/2019 19:09 MANAGER RESPIRATORY: JAMES RN WITH [facility] CAME OUT TO ASSES PATIENT. IT DOESN'T LOOK LIKE HE IS APPROPRIATE FOR THEIR INPATIENT UNIT RIGHT NOW. STATES WE NEED TO WORK ON PLACEMENT FOR HIM AND THEY ARE STARTING THEIR ADMISSION PROCESS. SOME OPTIONS FOR PLACEMENT MAY BE [facility] [place], [facility], [facility] OR [facility]. JAMES STATES PATIENT WANTS TO THINK ON IT OVER NIGHT. HOSPICE WILL SEND AN ACCESS NURSE OUT TOMORROW AND WILL TALK TO US AND THE PATIENT. CM TO FOLLOW AND ASSIST. Coverage Notice Reviewer: [id number] Richard Crabtree Notice Issued Date-Time: 10/05/2019 9:27 Notice Type: Patient Choice Letter Notice Delivered To: Patient Relationship to Patient: Self Insurance Salesperson Name: Delivery Method: HAND - Hand Delivered Pastora Days: Prior Verbal Notification: Recipient Understood Notice: Yes Recipient Signature: Yes Med Rec Note Co-signed by Attending: Coverage Notice Comment: [facility]EM for 1)[facility]) [facility] Last DP export: 10/05/19 8:24 Patient Name: ZEINAB ORTIZ Page [id number] at 0932 All edits/amendments must be made on the electronic document DICTATION DATE: 10/05/19930 SALES CLERK SUPERVISOR: RIIK 10/05/19930 RPT#: [id number] DC DATE: STATUS: ADM IN [facility] [address] [place] [address] END OF REPORT
--- NOTE | 2019-10-05 09:38 | NUR ---
WEATHER STRIP MECHANIC DC PER ORDER. PRN PAIN MEDICATION GIVEN. EDUCATION PROVIDED. VERBALIZED UNDERSTANDING.
--- NOTE | 2019-10-05 09:46 | MORECARE ---
CASE MANAGEMENT DISCHARGE SUMMARY PATIENT: ZEINAB ORTIZ UNIT: [id number] ADM DATE: 09/29/19 AGE: 54 : 65 SEX: M ROOM/BED: D.2228 AUTHOR: BOB,DOC PHYSICIAN: REFERRING PHYSICIAN: RON PARRY MD DATE OF SERVICE: 10/05/19 Discharge Plan Patient Name: ZEINAB ORTIZ Facility: [facility]:[place] : 1965 Planned Disposition: Hospice Medical Facility Anticipated Discharge Date: Discharge Date: Expected LOS: Initial Reviewer: [email or web address] Initial Review Date: 10/03/2019 Generated: 10/05/19 10:45 am Comments DCP- Discharge Planning Updated by [email or web address]: Soraida Crabtree on 10/05/19 8:[address] Patient states he has no family. The Ira Smith is his aunt, but he has no contact with her. He states he was living with a friend, Carlos Singer, but cannot live there any more. He declined information on homeless shelters. Referral sent to [facility]. CM will continue to follow and assist with discharge planning/needs. DCP- Discharge Planning Updated by [email or web address]: Soraida Crabtree on 10/05/19 8:[address] CM met with patient to discuss discharge plan. I instructed him on going to a LTC group home with his Medicaid vs LTC group home for hospice. He states he has decided to do group home with [facility] at this time. I called [facility] and spoke with Jaden, he states he will come out this afternoon to see the patient. HAKEEM for [facility] signed. I messaged Octavia Fonseca with [facility] and informed her and clinical faxed. CM will continue to follow and assist with discharge planning/needs. DCP- Discharge Planning Updated by [email or web address]: Soraida Crabtree on 10/04/19 3:[address] Patient is sleeping. I will meet with him in the morning. CM will continue to follow and assist with discharge planning/needs. DCP- Discharge Planning Updated by [email or web address]: Soraida Crabtree on 10/04/19 8:[address] CM went to room to meet with patient and he has asked me to come back this afternoon, states he is tired. I will come back at a later time to discuss housing options/homeless shelters. CM will continue to follow and assist with discharge planning/needs. DCP- Discharge Planning Updated by [email or web address]: Collette Rowland on 10/03/19 6:[address] Patient Name: ZEINAB ORTIZ Admission Status: ER Accout number: [id number] Admission Date: 09-29-2019 : 1965 Admission Diagnosis:MALIGNANT NEOPLASM OF COLON, UNSPECIFIED Attending: RON PARRY Current LOS: 4 Anticipated DC Date: Planned Disposition: Primary Insurance: MEDICAID [place] PENDING Discharge Planning Comments: CM met with patient at bedside after explaining CM role and obtaining verbal consent. CM discussed availability / needs of home health, REHAB , HOSPICE AND medical equipment. PATIENT WOULD LIKE [facility] AT THEIR INPATIENT FACILITY IF POSSIBLE. I HAVE CONTACTED MARQUIS WITH [facility] AND FAXED DOCUMENTS TO THEM. THEY ARE PROCESSING IT AND PLANNING TO SEND THEIR NURSE OUT IN SEVERAL HOURS. I ALSO GAVE PATIENT BROSHURES. CM WILL FOLLOW AND ASSIST NEEDED. Pharmacology Professor: Collette Rowland Appended by Collette Rowland on 10/03/2019 19:09 CONCRETE BLOCK MOLDER: JAMES RN WITH [facility] CAME OUT TO ASSES PATIENT. IT DOESN'T LOOK LIKE HE IS APPROPRIATE FOR THEIR INPATIENT UNIT RIGHT NOW. STATES WE NEED TO WORK ON PLACEMENT FOR HIM AND THEY ARE STARTING THEIR ADMISSION PROCESS. SOME OPTIONS FOR PLACEMENT MAY BE [place], [facility], [facility] OR [facility]. JAMES STATES PATIENT WANTS TO THINK ON IT OVER NIGHT. HOSPICE WILL SEND AN ACCESS NURSE OUT TOMORROW AND WILL TALK TO US AND THE PATIENT. CM TO FOLLOW AND ASSIST. Coverage Notice Reviewer: [id number] Richard Crabtree Notice Issued Date-Time: 10/05/2019 9:27 Notice Type: Patient Choice Letter Notice Delivered To: Patient Relationship to Patient: Self Ncqa Specialist Name: Delivery Method: HAND - Hand Delivered Pastora Days: Prior Verbal Notification: Recipient Understood Notice: Yes Recipient Signature: Yes Med Rec Note Co-signed by Attending: Coverage Notice Comment: [facility] for 1)[facility]) [facility] Last DP export: 10/05/19 8:32 Patient Name: ZEINAB ORTIZ Page [id number] at 0946 All edits/amendments must be made on the electronic document DICTATION DATE: 10/05/19944 BREWERY TECHNICIAN: RIKI 10/05/19944 RPT#: [id number] DC DATE: STATUS: ADM IN [facility] [address] [place] [address] END OF REPORT
--- NOTE | 2019-10-05 09:53 | MORECARE ---
CASE MANAGEMENT DISCHARGE SUMMARY PATIENT: ZEINAB ORTIZ UNIT: [id number] ADM DATE: 09/29/19 AGE: 54 : 65 SEX: M ROOM/BED: D.2228 AUTHOR: BOB,DOC PHYSICIAN: REFERRING PHYSICIAN: RON PARRY MD DATE OF SERVICE: 10/05/19 Discharge Plan Patient Name: ZEINAB ORTIZ Facility: [facility]:[place] : 1965 Planned Disposition: Hospice Medical Facility Anticipated Discharge Date: Discharge Date: Expected LOS: Initial Reviewer: [email or web address] Initial Review Date: 10/03/2019 Generated: 10/05/19 10:53 am Comments DCP- Discharge Planning Updated by [email or web address]: Soraida Crabtree on 10/05/19 8:[address] Patient states he has no family. The Ira Smith is his aunt, but he has no contact with her. He states he was living with a friend, Carlos Singer, but cannot live there any more. He declined information on homeless shelters. Referral sent to [facility]. CM will continue to follow and assist with discharge planning/needs. DCP- Discharge Planning Updated by [email or web address]: Soraida Crabtree on 10/05/19 8:[address] CM met with patient to discuss discharge plan. I instructed him on going to a LTC correction with his Medicaid vs LTC correction for hospice. He states he has decided to do correction with [facility] at this time. I called [facility] and spoke with Jaden, he states he will come out this afternoon to see the patient. HAKEEM for [facility] signed. I messaged Octavia Fonseca with [facility] and informed her and clinical faxed. CM will continue to follow and assist with discharge planning/needs. DCP- Discharge Planning Updated by [email or web address]: Soraida Crabtree on 10/04/19 3:[address] Patient is sleeping. I will meet with him in the morning. CM will continue to follow and assist with discharge planning/needs. DCP- Discharge Planning Updated by [email or web address]: Soraida Crabtree on 10/04/19 8:[address] CM went to room to meet with patient and he has asked me to come back this afternoon, states he is tired. I will come back at a later time to discuss housing options/homeless shelters. CM will continue to follow and assist with discharge planning/needs. DCP- Discharge Planning Updated by [email or web address]: Collette Rowland on 10/03/19 6:[address] Patient Name: ZEINAB ORTIZ Admission Status: ER Accout number: [id number] Admission Date: 09-29-2019 : 1965 Admission Diagnosis:MALIGNANT NEOPLASM OF COLON, UNSPECIFIED Attending: RON PARRY Current LOS: 4 Anticipated DC Date: Planned Disposition: Primary Insurance: MEDICAID [place] PENDING Discharge Planning Comments: CM met with patient at bedside after explaining CM role and obtaining verbal consent. CM discussed availability / needs of home health, REHAB , HOSPICE AND medical equipment. PATIENT WOULD LIKE [facility] AT THEIR INPATIENT FACILITY IF POSSIBLE. I HAVE CONTACTED MARQUIS WITH [facility] AND FAXED DOCUMENTS TO THEM. THEY ARE PROCESSING IT AND PLANNING TO SEND THEIR NURSE OUT IN SEVERAL HOURS. I ALSO GAVE PATIENT BROSHURES. CM WILL FOLLOW AND ASSIST NEEDED. Director Of Software Development: Collette Rowland Appended by Collette Rowland on 10/03/2019 19:09 PIPE CLEANER: JAMES RN WITH [facility] CAME OUT TO ASSES PATIENT. IT DOESN'T LOOK LIKE HE IS APPROPRIATE FOR THEIR INPATIENT UNIT RIGHT NOW. STATES WE NEED TO WORK ON PLACEMENT FOR HIM AND THEY ARE STARTING THEIR ADMISSION PROCESS. SOME OPTIONS FOR PLACEMENT MAY BE [place], [facility], [facility] OR [facility]. JAMES STATES PATIENT WANTS TO THINK ON IT OVER NIGHT. HOSPICE WILL SEND AN ACCESS NURSE OUT TOMORROW AND WILL TALK TO US AND THE PATIENT. CM TO FOLLOW AND ASSIST. External Providers External Provider: [facility] and [facility] Next Contact Date: Service Request Date: Service Type: Resolution: Reviewer: Comments: Coverage Notice Reviewer: [email or web address] - Soraida Crabtree Notice Issued Date-Time: 10/05/2019 9:27 Notice Type: Patient Choice Letter Notice Delivered To: Patient Relationship to Patient: Self Adobe Cq Developer Name: Delivery Method: HAND - Hand Delivered Pastora Days: Prior Verbal Notification: Recipient Understood Notice: Yes Recipient Signature: Yes Med Rec Note Co-signed by Attending: Coverage Notice Comment: [facility]EM for 1)[facility] 2) [facility] [place] [facility] Last DP export: 10/05/19 8:46 Patient Name: ZEINAB ORTIZ Page 76843 at 0953 All edits/amendments must be made on the electronic document DICTATION DATE: 10/05/19952 SAMPLE SEWER: RIKI 10/05/19952 RPT#: [id number] DC DATE: STATUS: ADM IN [facility] [address] [place] [address] END OF REPORT
[2019-10-05 12:54] VITALS: BP 153/84
--- NOTE | 2019-10-05 13:26 | NUR ---
GAS RELEASED FROM [facility]. PATIENT STATING DID NOT LIKE [facility] WHO CAME TO TALK TO HIM AND WANTS TO SPEAK WITH CM ABOUT HOSPICE. CM NOTIFIED AND STATES WILL SEE PATIENT.
--- NOTE | 2019-10-05 14:00 | NUR ---
IV REMOVED FROM LFA PER REQUEST. FLUIDS SWITCHED TO RIGHT CHEST PORT.
--- NOTE | 2019-10-05 14:04 | MORECARE ---
CASE MANAGEMENT DISCHARGE SUMMARY PATIENT: ZEINAB ORTIZ UNIT: [id number] ADM DATE: 09/29/19 AGE: 54 : 65 SEX: M ROOM/BED: D.2228 AUTHOR: BOB,DOC PHYSICIAN: REFERRING PHYSICIAN: RON PARRY MD DATE OF SERVICE: 10/05/19 Discharge Plan Patient Name: ZEINAB ORTIZ Facility: [facility]:[place] : 1965 Planned Disposition: Hospice Medical Facility Anticipated Discharge Date: Discharge Date: Expected LOS: Initial Reviewer: [email or web address] Initial Review Date: 10/03/2019 Generated: 10/05/19 3:03 pm Comments DCP- Discharge Planning Updated by [email or web address]: Soraida Crabtree on 10/05/19 12:[address] Jaden from [facility] was here and signed papers with the patient. After Jaden's visit, the patient requested to see me. He states that he is unsure if he still wants hospice and asked for all options. I did tell him that I could continue the referral to [facility], they may be able to help him with a long-term bed if he is able to stay for 30 days. I informed him to speak with Dr. Schultz for her advice and then make his decision. CM will continue to follow and assist with discharge planning/needs. DCP- Discharge Planning Updated by [email or web address]: Soraida Leyda on 10/05/19 8:[address] Patient states he has no family. The Ira Smith is his aunt, but he has no contact with her. He states he was living with a friend, Carlos Singer, but cannot live there any more. He declined information on homeless shelters. Referral sent to [facility]. CM will continue to follow and assist with discharge planning/needs. DCP- Discharge Planning Updated by [email or web address]: Soraida Leyda on 10/05/19 8:[address] CM met with patient to discuss discharge plan. I instructed him on going to a LTC residential with his Medicaid vs LTC residential for hospice. He states he has decided to do residential with [facility] at this time. I called [facility] and spoke with Jaden, he states he will come out this afternoon to see the patient. HAKEEM for [facility] signed. I messaged Octavia Fonseca with [facility] and informed her and clinical faxed. CM will continue to follow and assist with discharge planning/needs. DCP- Discharge Planning Updated by [email or web address]: Soraida Crabtree on 10/04/19 3:[address] Patient is sleeping. I will meet with him in the morning. CM will continue to follow and assist with discharge planning/needs. DCP- Discharge Planning Updated by [id number]: Soraida Crabtree on 10/04/19 8:[address] CM went to room to meet with patient and he has asked me to come back this afternoon, states he is tired. I will come back at a later time to discuss housing options/homeless shelters. CM will continue to follow and assist with discharge planning/needs. DCP- Discharge Planning Updated by [email or web address]: Collette Rowland on 10/03/19 6:[address] Patient Name: ZEINAB ORTIZ Admission Status: ER Accout number: [id number] Admission Date: 09-29-2019 : 1965 Admission Diagnosis:MALIGNANT NEOPLASM OF COLON, UNSPECIFIED Attending: RON PARRY Current LOS: 4 Anticipated DC Date: Planned Disposition: Primary Insurance: MEDICAID [place] PENDING Discharge Planning Comments: CM met with patient at bedside after explaining CM role and obtaining verbal consent. CM discussed availability / needs of home health, REHAB , HOSPICE AND medical equipment. PATIENT WOULD LIKE [facility] AT THEIR INPATIENT FACILITY IF POSSIBLE. I HAVE CONTACTED MARQUIS WITH [facility] AND FAXED DOCUMENTS TO THEM. THEY ARE PROCESSING IT AND PLANNING TO SEND THEIR NURSE OUT IN SEVERAL HOURS. I ALSO GAVE PATIENT BROSHURES. CM WILL FOLLOW AND ASSIST NEEDED. First Coat Operator: Collette Rowland Appended by Collette Rowland on 10/03/2019 19:09 TIN WORKER: JAMES CASTILLO WITH [facility] CAME OUT TO ASSES PATIENT. IT DOESN'T LOOK LIKE HE IS APPROPRIATE FOR THEIR INPATIENT UNIT RIGHT NOW. STATES WE NEED TO WORK ON PLACEMENT FOR HIM AND THEY ARE STARTING THEIR ADMISSION PROCESS. SOME OPTIONS FOR PLACEMENT MAY BE [facility], [facility], [facility] OR [facility]. JAMES STATES PATIENT WANTS TO THINK ON IT OVER NIGHT. HOSPICE WILL SEND AN ACCESS NURSE OUT TOMORROW AND WILL TALK TO US AND THE PATIENT. CM TO FOLLOW AND ASSIST. Coverage Notice Reviewer: [id number] Richard Soraida Crabtree Notice Issued Date-Time: 10/05/2019 9:27 Notice Type: Patient Choice Letter Notice Delivered To: Patient Relationship to Patient: Self Roofer Helper Vinyl Coating Name: Delivery Method: HAND - Hand Delivered Pastora Days: Prior Verbal Notification: Recipient Understood Notice: Yes Recipient Signature: Yes Med Rec Note Co-signed by Attending: Coverage Notice Comment: HAKEEM for 1)[facility] 2) [facility] Last DP export: 10/05/19 8:53 Patient Name: ZEINAB ORTIZ Page 41631 at 1404 All edits/amendments must be made on the electronic document DICTATION DATE: 10/05/191402 CUPROUS CHLORIDE HELPER: RIKI 10/05/19 140 RPT#: [id number] DC DATE: STATUS: ADM IN [facility] [address] [place] [address] END OF REPORT
--- NOTE | 2019-10-05 14:22 | OP ---
PATIENT NAME: ZEINAB ORTIZ MEDICAL RECORD: [id number] :65 LOCATION:D[id number] ADMISSION DATE:09/29/19 SURGEON: SALOMON VILLALBA MD DATE OF OPERATION: 10/01/2019 PREOPERATIVE DIAGNOSES: 1. Metastatic rectal cancer with partial obstruction. 2. Hypertension. 3. Unintentional weight loss. 4. Fecal incontinence. POSTOPERATIVE DIAGNOSES: 1. Metastatic rectal cancer with partial obstruction. 2. Hypertension. 3. Unintentional weight loss. 4. Fecal incontinence. 5. Carcinomatosis. PROCEDURE: 1. Laparoscopic to open sigmoid colostomy. 2. Partial omentectomy. 3. Right subclavian vein port placement with fluoroscopic interpretation. SURGEON: Salomon Villalba MD REPORT OF PROCEDURE: The patient's right chest and abdomen were all prepped and draped in sterile fashion. A needle was used to cannulate the right subclavian vein and a guidewire was advanced with ease. Fluoro was used to note that the wire was in good position in the venous system. A skin incision was made on the right superolateral chest and a subcutaneous pouch was made over the pectoral fascia. The catheter was tunneled between this pouch and the wire exit site. The port was then sutured to the pectoral fascia using interrupted 3-0 Prolenes times 2. The catheter was cut with a beveled tip at 23-cm. The dilator trocar device was placed over the wire and the wire and dilator were removed. The catheter tip was advanced through the trocar and the trocar was removed. The catheter tip was noted to be resting in the vena cava near the right atrial superior vena caval junction. The catheter aspirated nonpulsatile dark blood and flushed easily with heparinized saline. We then accessed the port and left this accessed for the remainder of the case. We then approached the patient's abdomen. The patient's abdominal wall was very firm. A Veress needle was inserted in the left upper quadrant and insufflation was obtained. There was hardly any laxity to the abdominal wall. I tried [address] the trocar, but was never able to fully see where exactly I was going in with a 5-mm Visiport trocar. I discontinued this and made a small skin incision in the midline just above the umbilicus where I was able to enter the abdominal cavity and could feel that the firm tissue that was present was carcinomatosis and thickened omentum. I was able to place a 12-mm trocar within the abdomen and do inspection and it just showed diffuse tumor throughout the abdominal cavity. I made an incision in the patient's left lower quadrant with an attempt made to pull up the patient's colon for diverting ostomy, but upon doing this, I was having trouble just determining what the tissue was and actually pulled up a loop of bowel that had so much tumor on it that I thought it was colon and once opening it, I noticed that it was actually small bowel. I was able to repair this enterotomy with a 30 blue load TA stapler and this was pushed back into the abdominal cavity. I then discontinued our laparoscopic portion of the case and OPERATIVE REPORT [id number] ZEINAB ORTIZ performed a large open midline incision. Once inside the omentum, which was so firm had to be excised close to the patient's transverse colon just to give us the ability to see the underlying tissues, we removed a large portion of this omentum and sent it off for permanent specimen. We went through the patient's small bowel, a lot of it was tethered down to the posterior abdominal wall because of the large tumor burden. I was able to find the patient's sigmoid colon, as it dipped down into the pelvis I lost visualization of the colon because of a dense amount of tumor that was present in the pelvic region. The sigmoid and proximal colons were all mildly dilated. I was able to elevate this colon and take down the white line of Toldt and able to help mobilize this thing more medially. Once I did this, we were able to make a window in the mesocolon and transected the colon with a 75 blue load EDIN stapler. This was done at the mid portion of the sigmoid colon. I was able to find the patient's left ureter and this was protected through the procedure. We then eviscerated this distal end of the sigmoid colon through the opening in the left lower quadrant. We then irrigated out the abdomen one last time and inspected, and could feel the patient had multiple areas of tumor burden on the outside of the liver with some ascitic fluid, which was likely malignant. We then closed the patient's midline using running #1 loop PDS times 2 and the skin was closed with soo. The left lower quadrant colostomy was matured using 4-0 Vicryls with an attempt made to do this in a brooking fashion. COMPLICATIONS: None. CONDITION: Fair. ANESTHESIA: General endotracheal. BLOOD LOSS: 100 mL. TRANSINT:[id number] Voice Confirmation ID: [id number] DOCUMENT ID: [id number] SALOMON VILLALBA MD at 1422 CC: TREVOR LEDBETTER MD [id number] DICTATION DATE: 10/01/19 1357 BLIND AIDE: 10/01/19 1534 ADM IN [facility] [address] [place] [address]
--- NOTE | 2019-10-05 15:09 | NUR ---
RESTING IN BED. DENIES NEEDS. WILL CONTINUE TO MONITOR.
--- NOTE | 2019-10-05 15:35 | NUR ---
Pt was provided printed information packet yesterday. He stated he read some of it. We discussed the stoma, skin care of stoma and peristomal skin, prepping skin for appliance placement. Encouraged him to read through the packet and we will discuss any questions and practice changing out an appliance. He voiced understanding.
[2019-10-05 17:22] VITALS: BP 120/82
--- NOTE | 2019-10-05 18:52 | NUR ---
RESTING IN BED. OSTOMY BAG BURPED. DENIES NEEDS. BED LOW. CALL YATES AND PERSONAL ITEMS IN REACH.
--- NOTE | 2019-10-05 20:00 | NUR ---
ASSESSMENT PER FLOWSHEET. ABD. INCISION C/D/I. COLOSOMY INTACT WITH GAS NOTED IN BAG. AIR RELEASED. IV PATENT RT INFUSAPORT WITH NS AT 50CC'S/HR ZOFRAN GTT AT 4.7CC'S/HR. RUDD TO BS DRAINAGE. TELM. SR WITH HR 73.
[2019-10-05 20:31] VITALS: BP 151/96
--- NOTE | 2019-10-05 21:30 | NUR ---
MEDS PER MAR.
--- NOTE | 2019-10-06 | NUR ---
EYES CLOSED RESPIRATIONS WITH EASE AND UNLABORED.
[2019-10-06 00:22] VITALS: BP 164/101
--- NOTE | 2019-10-06 03:30 | NUR ---
RESTING QUIETLY SR UP X2 CALL LIGHT WITHIN REACH.
[2019-10-06 03:58] VITALS: BP 141/87
--- NOTE | 2019-10-06 08:00 | NUR ---
PT RESTING IN BED WITH EYES CLOSED. RESP EVEN AND UNLABORED. AWAKENS WITH NAME CALLED. REPORTS PAIN 3/10 AT THIS TIME. INFUSAPORT TO RIGHT CHEST ACESSED WITH NS @ 50ML/HR, ZOFRAN 4.7ML/HR BOTH INFUSING VIA PUMP. SITE WITHOUT REDNESS OR EDEMA. ABDOMINAL INCISION WITH PINO INTACT, EDGES WELL APROXIMATED. SITE WITHOUT REDNESS OR EDEMA OR DRAINAGE. COLOSTOMY TO LEFT QUAD WITH THICK DARK GREEN STOOL NOTED. GAS BEING PASSED NOTED. F/C PATENT TO GRAVITY DRAINING YELLOW URINE. DENIES FURTHER NEEDS AT THIS TIME. CL WITHIN REACH. ENCOURAGED TO CALL WITH NEEDS. CONTINUE POC
[2019-10-06 09:13] VITALS: BP 146/93
[2019-10-06 10:47] LABS: BASOPHILS 0.2 % (0-2); EOSINOPHILS 1.6 % (0-7); HEMATOCRIT 29.7 % (42.0-54.0); HEMOGLOBIN 9.2 g/dL (13.5-17.5); LYMPHOCYTES 12.9 % (15-50); MCH 24.6 pg (26.0-34.0); MCV 79.4 fL (80.0-100.0); MEAN PLATELET VOLUME 8.4 fL (7.4-10.4); NEUTROPHILS 73.3 % (40-80); PLATELET COUNT 313 10x3/uL (130-400); RBC 3.74 10x6/uL (4.20-6.10); RDW 16.8 % (11.5-14.5); WBC 4.5 10x3/uL (4.8-10.8)
[2019-10-06 11:04] LABS: ALBUMIN 1.8 g/dL (3.4-5.0); ALKALINE PHOSPHATASE 177 U/L (46-116); ALT (SGPT) 15 U/L (10-68); BILIRUBIN - TOTAL 0.34 mg/dL (0.2-1.3); CALC OSMOLALITY 274 mosm/kg (275-300); CALCIUM 7.9 mg/dL (8.5-10.1); CARBON DIOXIDE 32.8 mmol/L (21.0-32.0); CHLORIDE - SERUM 102 mmol/L (98-107); CREATININE - SERUM 0.8 mg/dL (0.6-1.3); GLUCOSE 106 mg/dL (74-106); PROTEIN - SERUM 5.7 g/dL (6.4-8.2); SODIUM 138 mmol/L (136-145); UREA NITROGEN 10 mg/dL (7-18); eGFR NON AFRICAN AMERICAN > 90 mL/min (90-120)
--- NOTE | 2019-10-06 12:09 | MORECARE ---
CASE MANAGEMENT DISCHARGE SUMMARY PATIENT: ZEINAB ORTIZ UNIT: [id number] ADM DATE: 09/29/19 AGE: 54 : 65 SEX: M ROOM/BED: D.2228 AUTHOR: BOBDOC PHYSICIAN: REFERRING PHYSICIAN: RON PARRY MD DATE OF SERVICE: 10/06/19 Discharge Plan Patient Name: ZEINAB ORTIZ Facility: [facility]:[place] : 1965 Planned Disposition: Hospice Medical Facility Anticipated Discharge Date: Discharge Date: Expected LOS: Initial Reviewer: [id number] Initial Review Date: 10/03/2019 Generated: 10/06/19 1:09 pm Comments DCP- Discharge Planning Updated by [id number]: Soraida Crabtree on 10/06/19 11:[address] I spoke with the patient after Dr. Schultz informed me that he was wanting to do chemo and not hospice at this time. I called Maddie with [facility] and informed her. She states "ok, I will let Jose know." I spoke with estefanía Dudley for [facility], and informed her as well. She states they may still be able to accept patient after financials are completed. I provided patient with coat, gloves, and socks from [facility]. CM will continue to assist with discharge planning/needs. DCP- Discharge Planning Updated by [email or web address]: Soraida Crabtree on 10/05/19 12:[address] Jaden from [facility] was here and signed papers with the patient. After Jaden's visit, the patient requested to see me. He states that he is unsure if he still wants hospice and asked for all options. I did tell him that I could continue the referral to [facility], they may be able to help him with a prison bed if he is able to stay for 30 days. I informed him to speak with Dr. Schultz for her advice and then make his decision. CM will continue to follow and assist with discharge planning/needs. DCP- Discharge Planning Updated by [id number]: Soraida Crabtree on 10/05/19 8:[address] Patient states he has no family. The Ira Smith is his aunt, but he has no contact with her. He states he was living with a friend, Carlos Singer, but cannot live there any more. He declined information on homeless shelters. Referral sent to [facility] for [facility]. CM will continue to follow and assist with discharge planning/needs. DCP- Discharge Planning Updated by [id number]: Soraida Leyda on 10/05/19 8:[address] CM met with patient to discuss discharge plan. I instructed him on going to a LTC longterm with his Medicaid vs LT longterm for hospice. He states he has decided to do longterm with [facility] at this time. I called [facility] and spoke with Jaden, he states he will come out this afternoon to see the patient. HAKEEM for [facility] signed. I messaged Octavia Fonseca with [facility] and informed her and clinical faxed. CM will continue to follow and assist with discharge planning/needs. DCP- Discharge Planning Updated by [email or web address]: Soraida Leyda on 10/04/19 3:[address] Patient is sleeping. I will meet with him in the morning. CM will continue to follow and assist with discharge planning/needs. DCP- Discharge Planning Updated by [id number]: Soraida Leyda on 10/04/19 8:[address] CM went to room to meet with patient and he has asked me to come back this afternoon, states he is tired. I will come back at a later time to discuss housing options/homeless shelters. CM will continue to follow and assist with discharge planning/needs. DCP- Discharge Planning Updated by [id number]: Collette Rowland on 10/03/19 6:[address] Patient Name: ZEINAB ORTIZ Admission Status: ER Accout number: [id number] Admission Date: 09-29-2019 : 1965 Admission Diagnosis:MALIGNANT NEOPLASM OF COLON, UNSPECIFIED Attending: RON PARRY Current LOS: 4 Anticipated DC Date: Planned Disposition: Primary Insurance: MEDICAID [place] PENDING Discharge Planning Comments: CM met with patient at bedside after explaining CM role and obtaining verbal consent. CM discussed availability / needs of home health, REHAB , HOSPICE AND medical equipment. PATIENT WOULD LIKE [facility] AT THEIR INPATIENT FACILITY IF POSSIBLE. I HAVE CONTACTED MARQUIS WITH [facility] AND FAXED DOCUMENTS TO THEM. THEY ARE PROCESSING IT AND PLANNING TO SEND THEIR NURSE OUT IN SEVERAL HOURS. I ALSO GAVE PATIENT BROSHURES. CM WILL FOLLOW AND ASSIST NEEDED. K 9 Handler/ Deputy: Collette Rowland Appended by Collette Rowland on 10/03/2019 19:09 OUTREACH COORDINATOR: JAMES RN WITH [facility] CAME OUT TO ASSES PATIENT. IT DOESN'T LOOK LIKE HE IS APPROPRIATE FOR THEIR INPATIENT UNIT RIGHT NOW. STATES WE NEED TO WORK ON PLACEMENT FOR HIM AND THEY ARE STARTING THEIR ADMISSION PROCESS. SOME OPTIONS FOR PLACEMENT MAY BE [facility], [facility], [facility] OR [facility]. JAMES STATES PATIENT WANTS TO THINK ON IT OVER NIGHT. HOSPICE WILL SEND AN ACCESS NURSE OUT TOMORROW AND WILL TALK TO US AND THE PATIENT. CM TO FOLLOW AND ASSIST. Coverage Notice Reviewer: [id number] - Soraida Crabtree Notice Issued Date-Time: 10/05/2019 9:27 Notice Type: Patient Choice Letter Notice Delivered To: Patient Relationship to Patient: Self Industrial Maintenance Instructor Name: Delivery Method: HAND - Hand Delivered Pastora Days: Prior Verbal Notification: Recipient Understood Notice: Yes Recipient Signature: Yes Med Rec Note Co-signed by Attending: Coverage Notice Comment: HAKEEM for 1)[facility] 2) [facility] Last DP export: 10/05/19 1:04 Patient Name: ZEINAB ORTIZ Page [id number] at 1209 All edits/amendments must be made on the electronic document DICTATION DATE: 10/06/19 120 BRAILLE TYPIST: RIKI 10/06/19 1209 RPT#: [id number] DC DATE: STATUS: ADM IN [facility] [address] [place] [address] END OF REPORT
[2019-10-06 12:26] VITALS: BP 150/96
[2019-10-06 16:22] VITALS: BP 147/95
--- NOTE | 2019-10-06 16:37 | MORECARE ---
CASE MANAGEMENT DISCHARGE SUMMARY PATIENT: ZEINAB ORTIZ UNIT: [id number] ADM DATE: 09/29/19 AGE: 54 : 65 SEX: M ROOM/BED: D.2228 AUTHOR: BOB,DOC PHYSICIAN: REFERRING PHYSICIAN: RON PARRY MD DATE OF SERVICE: 10/06/19 Discharge Plan Patient Name: ZEINAB ORTIZ Facility: [facility]:[place] : 1965 Planned Disposition: Hospice Medical Facility Anticipated Discharge Date: Discharge Date: Expected LOS: Initial Reviewer: [email or web address] Initial Review Date: 10/03/2019 Generated: 10/06/19 5:37 pm Comments DCP- Discharge Planning Updated by [email or web address]: Soraida Crabtree on 10/06/19 3:[address] Received a call from Octavia from [facility], she states that the SS# was wrong and the patient's name is Ford Ortiz, not Zeinab. I have emailed correct SS# to registration. He states his friend, Carlos Ruiz, that he lived with has his SS card, ID and Certificate and he can call Carlos's (Silva) at [facility] [employer] (where she works at 10PM) [facility] to have her bring them to him. I asked Octavia if [facility] would still consider admission and she states she will let me know in the am. Patient has chosen [facility] as his second choice and I will send referral there tomorrow after his friend brings ID. CM will continue to follow and assist with discharge planning/needs. DCP- Discharge Planning Updated by [id number]: Soraida Crabtree on 10/06/19 11:[address] I spoke with the patient after Dr. Schultz informed me that he was wanting to do chemo and not hospice at this time. I called Maddie with [facility] and informed her. She states "ok, I will let Jose know." I spoke with estefanía Dudley for [facility], and informed her as well. She states they may still be able to accept patient after financials are completed. I provided patient with coat, gloves, and socks from [facility]. CM will continue to assist with discharge planning/needs. DCP- Discharge Planning Updated by [email or web address]: Soraida Crabtree on 10/05/19 12:[address] Jaden from [facility] was here and signed papers with the patient. After Jaden's visit, the patient requested to see me. He states that he is unsure if he still wants hospice and asked for all options. I did tell him that I could continue the referral to [facility], they may be able to help him with a [place] [facility] bed if he is able to stay for 30 days. I informed him to speak with Dr. Schultz for her advice and then make his decision. CM will continue to follow and assist with discharge planning/needs. DCP- Discharge Planning Updated by [id number]: Soraida Crabtree on 10/05/19 8:[address] Patient states he has no family. The Ira Smith is his aunt, but he has no contact with her. He states he was living with a friend, Carlos Singer, but cannot live there any more. He declined information on homeless shelters. Referral sent to [facility] for [facility]. CM will continue to follow and assist with discharge planning/needs. DCP- Discharge Planning Updated by [id number]: Soraida Crabtree on 10/05/19 8:[address] CM met with patient to discuss discharge plan. I instructed him on going to a LTC half-way with his Medicaid vs LTC half-way for hospice. He states he has decided to do half-way with [facility] at this time. I called [facility] and spoke with Jaden, he states he will come out this afternoon to see the patient. HAKEEM for [facility] signed. I messaged Octavia Fonseca with [facility] and informed her and clinical faxed. CM will continue to follow and assist with discharge planning/needs. DCP- Discharge Planning Updated by [id number]: Soraida Crabtree on 10/04/19 3:[address] Patient is sleeping. I will meet with him in the morning. CM will continue to follow and assist with discharge planning/needs. DCP- Discharge Planning Updated by [id number]: Soraida Crabtree on 10/04/19 8:[address] CM went to room to meet with patient and he has asked me to come back this afternoon, states he is tired. I will come back at a later time to discuss housing options/homeless shelters. CM will continue to follow and assist with discharge planning/needs. DCP- Discharge Planning Updated by [email or web address]: Collette Rowland on 10/03/19 6:[address] Patient Name: ZEINAB ORTIZ Admission Status: ER Accout number: [id number] Admission Date: 09-29-2019 : 1965 Admission Diagnosis:MALIGNANT NEOPLASM OF COLON, UNSPECIFIED Attending: RON PARRY Current LOS: 4 Anticipated DC Date: Planned Disposition: Primary Insurance: MEDICAID [place] PENDING Discharge Planning Comments: CM met with patient at bedside after explaining CM role and obtaining verbal consent. CM discussed availability / needs of home health, REHAB , HOSPICE AND medical equipment. PATIENT WOULD LIKE [facility] AT THEIR INPATIENT FACILITY IF POSSIBLE. I HAVE CONTACTED MARQUIS WITH [facility] AND FAXED DOCUMENTS TO THEM. THEY ARE PROCESSING IT AND PLANNING TO SEND THEIR NURSE OUT IN SEVERAL HOURS. I ALSO GAVE PATIENT BROSHURES. CM WILL FOLLOW AND ASSIST NEEDED. Grid Inspector: Collette Rowland Appended by Collette Rowland on 10/03/2019 19:09 CABLE REELER: JAMES RN WITH [facility] CAME OUT TO ASSES PATIENT. IT DOESN'T LOOK LIKE HE IS APPROPRIATE FOR THEIR INPATIENT UNIT RIGHT NOW. STATES WE NEED TO WORK ON PLACEMENT FOR HIM AND THEY ARE STARTING THEIR ADMISSION PROCESS. SOME OPTIONS FOR PLACEMENT MAY BE [facility], [facility], [facility] OR [facility]. JAMES STATES PATIENT WANTS TO THINK ON IT OVER NIGHT. HOSPICE WILL SEND AN ACCESS NURSE OUT TOMORROW AND WILL TALK TO US AND THE PATIENT. CM TO FOLLOW AND ASSIST. Coverage Notice Reviewer: [id number] Richard Crabtree Notice Issued Date-Time: 10/05/2019 9:27 Notice Type: Patient Choice Letter Notice Delivered To: Patient Relationship to Patient: Self Cleaner Signs Name: Delivery Method: HAND - Hand Delivered Pastora Days: Prior Verbal Notification: Recipient Understood Notice: Yes Recipient Signature: Yes Med Rec Note Co-signed by Attending: Coverage Notice Comment: HAKEEM for 1)[facility] 2) [facility] Last DP export: 10/06/19 11:09 Patient Name: ZEINAB ORTIZ Page [id number] at 1637 All edits/amendments must be made on the electronic document DICTATION DATE: 10/06/191636 ATTENDANCE CLERK: RIKI 10/06/191636 RPT#: [id number] DC DATE: STATUS: ADM IN [facility] [address] [place] [address] END OF REPORT
[2019-10-06 19:30] VITALS: BP 134/72
--- NOTE | 2019-10-06 21:00 | NUR ---
A&O X 4, AMBULATORY AD MARTITA. COLOSTOMY BAG/DRESSING REMOVED, CLEANSED AND REPLACED. STOMA APPEARS DARKENED. PT SHOWERED. DENIES NEEDS AT THIS TIME, WILL CONTINUE TO MONITOR.
[2019-10-07 00:30] VITALS: BP 138/70
--- NOTE | 2019-10-07 04:09 | NUR ---
I have reviewed this patient and I concur with the Shift Assessment completed by the Licensed Practical Nurse today this shift.
[2019-10-07 04:26] LABS: BASOPHILS 0.2 % (0-2); EOSINOPHILS 1.4 % (0-7); HEMATOCRIT 31.3 % (42.0-54.0); HEMOGLOBIN 9.6 g/dL (13.5-17.5); IMMATURE GRANULOCYTES 0.2 % (0-5); LYMPHOCYTES 12.1 % (15-50); MCH 24.1 pg (26.0-34.0); MCHC 30.7 g/dL (31.0-37.0); MCV 78.4 fL (80.0-100.0); MEAN PLATELET VOLUME 8.6 fL (7.4-10.4); MONOCYTES 12.1 % (2-11); RBC 3.99 10x6/uL (4.20-6.10); RDW 16.8 % (11.5-14.5); WBC 4.9 10x3/uL (4.8-10.8)
[2019-10-07 04:30] VITALS: BP 142/67
[2019-10-07 04:51] LABS: PLATELET COUNT 392 10x3/uL (130-400)
[2019-10-07 04:54] LABS: ALBUMIN 1.8 g/dL (3.4-5.0); ALKALINE PHOSPHATASE 165 U/L (46-116); ALT (SGPT) 15 U/L (10-68); CALC OSMOLALITY 277 mosm/kg (275-300); CARBON DIOXIDE 29.3 mmol/L (21.0-32.0); CHLORIDE - SERUM 103 mmol/L (98-107); CREATININE - SERUM 0.7 mg/dL (0.6-1.3); GLUCOSE 97 mg/dL (74-106); POTASSIUM - SERUM 3.6 mmol/L (3.5-5.1); PROTEIN - SERUM 6.4 g/dL (6.4-8.2); SODIUM 140 mmol/L (136-145); UREA NITROGEN 10 mg/dL (7-18); eGFR NON AFRICAN AMERICAN > 90 mL/min (90-120)
--- NOTE | 2019-10-07 07:50 | NUR ---
RUDD AND COLOSTOMY EMPTIED. PAIN MEDS GIVEN. PATIENT HAS NO FURTHER CO OF NAUSEA. CL IN REACH. WCTM
[2019-10-07 09:02] VITALS: BP 153/99
[2019-10-07 13:07] VITALS: BP 134/81
--- NOTE | 2019-10-07 13:15 | MORECARE ---
CASE MANAGEMENT DISCHARGE SUMMARY PATIENT: ZEINAB ORTIZ UNIT: [id number] ADM DATE: 09/29/19 AGE: 54 : 65 SEX: M ROOM/BED: D.2228 AUTHOR: BOB,DOC PHYSICIAN: REFERRING PHYSICIAN: RON PARRY MD DATE OF SERVICE: 10/07/19 Discharge Plan Patient Name: ZEINAB ORTIZ Facility: [facility]:[place] : 1965 Planned Disposition: Hospice Medical Facility Anticipated Discharge Date: Discharge Date: Expected LOS: Initial Reviewer: [id number] Initial Review Date: 10/03/2019 Generated: 10/07/19 2:14 pm Comments DCP- Discharge Planning Updated by [id number]: Soraida Crabtree on 10/07/19 12:[address] Met with the patient to see if he has received his ID. He states that he did call his friend, Silva, and she will be bringing his wallet with his ID and certificate after work tomorrow morning. I called estefanía Monique for [facility], they are still considering admission with proper identification. CM will continue to follow and assist with discharge planning/needs. DCP- Discharge Planning Updated by [email or web address]: Soraida Leyda on 10/06/19 3:[address] Received a call from Octavia from [facility], she states that the SS# was wrong and the patient's name is Ford Ortiz, not Zeinab. I have emailed correct SS# to registration. He states his friend, Carlos Ruiz, that he lived with has his SS card, ID and Certificate and he can call Carlos's (Silva) at [facility] [employer] [employer] (where she works at [employer]) [facility] to have her bring them to him. I asked Octavia if [facility] would still consider admission and she states she will let me know in the am. Patient has chosen [facility] as his second choice and I will send referral there tomorrow after his friend brings ID. CM will continue to follow and assist with discharge planning/needs. DCP- Discharge Planning Updated by [id number]: Soraida Crabtree on 10/06/19 11:[address] I spoke with the patient after Dr. Schultz informed me that he was wanting to do chemo and not hospice at this time. I called Maddie with [facility] and informed her. She states "ok, I will let Jose know." I spoke with estefanía Dudley for [facility], and informed her as well. She states they may still be able to accept patient after financials are completed. I provided patient with coat, gloves, and socks from [facility]. CM will continue to assist with discharge planning/needs. DCP- Discharge Planning Updated by [id number]: Soraida Crabtree on 10/05/19 12:[address] Jaden from [facility] was here and signed papers with the patient. After Jaden's visit, the patient requested to see me. He states that he is unsure if he still wants hospice and asked for all options. I did tell him that I could continue the referral to [facility], they may be able to help him with a termite control representative bed if he is able to stay for 30 days. I informed him to speak with Dr. Schultz for her advice and then make his decision. CM will continue to follow and assist with discharge planning/needs. DCP- Discharge Planning Updated by [id number]: Soraida Leyda on 10/05/19 8:[address] Patient states he has no family. The Ira Smith is his aunt, but he has no contact with her. He states he was living with a friend, Carlos Singer, but cannot live there any more. He declined information on homeless shelters. Referral sent to [facility] for [facility]. CM will continue to follow and assist with discharge planning/needs. DCP- Discharge Planning Updated by [id number]: Soraida Crabtree on 10/05/19 8:[address] CM met with patient to discuss discharge plan. I instructed him on going to a LTC fci with his Medicaid vs LTC fci for hospice. He states he has decided to do fci with [facility] at this time. I called [facility] and spoke with Jaden, he states he will come out this afternoon to see the patient. HAKEEM for [facility] signed. I messaged Octavia Fonseca with [facility] and informed her and clinical faxed. CM will continue to follow and assist with discharge planning/needs. DCP- Discharge Planning Updated by [id number]: Soraida Crabtree on 10/04/19 3:[address] Patient is sleeping. I will meet with him in the morning. CM will continue to follow and assist with discharge planning/needs. DCP- Discharge Planning Updated by [id number]: Soraida Crabtree on 10/04/19 8:[address] CM went to room to meet with patient and he has asked me to come back this afternoon, states he is tired. I will come back at a later time to discuss housing options/homeless shelters. CM will continue to follow and assist with discharge planning/needs. DCP- Discharge Planning Updated by [email or web address]: Collette Rowland on 10/03/19 6:[address] Patient Name: ZEINAB ORTIZ Admission Status: ER Accout number: [id number] Admission Date: 09-29-2019 : 1965 Admission Diagnosis:MALIGNANT NEOPLASM OF COLON, UNSPECIFIED Attending: RON PARRY Current LOS: 4 Anticipated DC Date: Planned Disposition: Primary Insurance: MEDICAID [place] PENDING Discharge Planning Comments: CM met with patient at bedside after explaining CM role and obtaining verbal consent. CM discussed availability / needs of home health, REHAB , HOSPICE AND medical equipment. PATIENT WOULD LIKE [facility] AT THEIR INPATIENT FACILITY IF POSSIBLE. I HAVE CONTACTED MARQUIS WITH [facility] AND FAXED DOCUMENTS TO THEM. THEY ARE PROCESSING IT AND PLANNING TO SEND THEIR NURSE OUT IN SEVERAL HOURS. I ALSO GAVE PATIENT BROSHURES. CM WILL FOLLOW AND ASSIST NEEDED. Pathology Laboratory Director: Collette Rowland Appended by Collette Rowland on 10/03/2019 19:09 PLEATER: JAMES RN WITH [facility] CAME OUT TO ASSES PATIENT. IT DOESN'T LOOK LIKE HE IS APPROPRIATE FOR THEIR INPATIENT UNIT RIGHT NOW. STATES WE NEED TO WORK ON PLACEMENT FOR HIM AND THEY ARE STARTING THEIR ADMISSION PROCESS. SOME OPTIONS FOR PLACEMENT MAY BE [facility], [facility], [facility] OR [facility]. JAMES STATES PATIENT WANTS TO THINK ON IT OVER NIGHT. HOSPICE WILL SEND AN ACCESS NURSE OUT TOMORROW AND WILL TALK TO US AND THE PATIENT. CM TO FOLLOW AND ASSIST. Coverage Notice Reviewer: [id number] - Soraida Crabtree Notice Issued Date-Time: 10/05/2019 9:27 Notice Type: Patient Choice Letter Notice Delivered To: Patient Relationship to Patient: Self Fire And Safety Helper Name: Delivery Method: HAND - Hand Delivered Pastora Days: Prior Verbal Notification: Recipient Understood Notice: Yes Recipient Signature: Yes Med Rec Note Co-signed by Attending: Coverage Notice Comment: HAKEEM for 1)[facility] 2) [facility] Last DP export: 10/06/19 3:37 Patient Name: ZEINAB ORTIZ Page [id number] at 1315 All edits/amendments must be made on the electronic document DICTATION DATE: 10/07/19 131 WINDOWS ARCHITECT: RIKI 10/07/19 1314 RPT#: [id number] DC DATE: STATUS: ADM IN [facility] [address] [place] [address] END OF REPORT
--- NOTE | 2019-10-07 13:19 | NUR ---
NUTRITION F/U PT SLEEPING. ONLY PO TODAY IS ENSURE FOR BREAKFAST AND ONE MILK FOR LUNCH. 24 [address]IE COUNT IN PROGRESS. RD FOLLOWING
--- NOTE | 2019-10-07 13:25 | NUR ---
CALORIE COUNT 10/06 DINNER THRU 10/07 LUNCH KCALGM PROTEIN [id number]
--- NOTE | 2019-10-07 14:06 | NUR ---
IV TUBING CHANGED
--- NOTE | 2019-10-07 16:03 | NUR ---
RIGHT CHEST PORT DRESSING COMPLETE. STERILE TECHNIQUE OBSERVED THROUHOUT. PATIENT TOLERATED WELL. CL IN REACH. WCTM
[2019-10-07 16:45] VITALS: BP 147/65
[2019-10-07 19:30] VITALS: BP 132/80
[2019-10-08] VITALS: BP 124/82
[2019-10-08 04:00] VITALS: BP 129/86
[2019-10-08 05:41] LABS: BASOPHILS 0.3 % (0-2); EOSINOPHILS 1.8 % (0-7); HEMATOCRIT 27.6 % (42.0-54.0); HEMOGLOBIN 8.5 g/dL (13.5-17.5); LYMPHOCYTES 21.3 % (15-50); MCH 24.1 pg (26.0-34.0); MCHC 30.8 g/dL (31.0-37.0); MCV 78.4 fL (80.0-100.0); MEAN PLATELET VOLUME 8.7 fL (7.4-10.4); NEUTROPHILS 58.6 % (40-80); PLATELET COUNT 369 10x3/uL (130-400); RBC 3.52 10x6/uL (4.20-6.10); RDW 16.7 % (11.5-14.5)
[2019-10-08 05:47] LABS: WBC 3.3 10x3/uL (4.8-10.8)
[2019-10-08 06:23] LABS: ALBUMIN 1.5 g/dL (3.4-5.0); ALKALINE PHOSPHATASE 129 U/L (46-116); BILIRUBIN - TOTAL 0.43 mg/dL (0.2-1.3); CALCIUM 7.5 mg/dL (8.5-10.1); CARBON DIOXIDE 27.9 mmol/L (21.0-32.0); CHLORIDE - SERUM 102 mmol/L (98-107); CREATININE - SERUM 0.7 mg/dL (0.6-1.3); GLUCOSE 90 mg/dL (74-106); POTASSIUM - SERUM 3.5 mmol/L (3.5-5.1); PROTEIN - SERUM 5.5 g/dL (6.4-8.2); SODIUM 136 mmol/L (136-145); eGFR NON AFRICAN AMERICAN > 90 mL/min (90-120)
[2019-10-08 06:28] LABS: ALT (SGPT) 10 U/L (10-68); CALC OSMOLALITY 271 mosm/kg (275-300); UREA NITROGEN 13 mg/dL (7-18)
[2019-10-08 07:55] VITALS: BP 107/76
--- NOTE | 2019-10-08 09:10 | NUR ---
pt requested pain medication stated iv last longer and does better than the pill, administered prn pain medication. cl in reach bed in low position
--- NOTE | 2019-10-08 10:52 | NUR ---
SLEEPING ON RIGHT SIDE. PT IS WITHOUT DISTRESS.
--- NOTE | 2019-10-08 12:14 | MORECARE ---
CASE MANAGEMENT DISCHARGE SUMMARY PATIENT: ZEINAB ORTIZ UNIT: [id number] ADM DATE: 09/29/19 AGE: 54 : 65 SEX: M ROOM/BED: D.2228 AUTHOR: BOB,DOC PHYSICIAN: REFERRING PHYSICIAN: RON PARRY MD DATE OF SERVICE: 10/08/19 Discharge Plan Patient Name: ZEINAB ORTIZ Facility: [facility]:[place] : 1965 Planned Disposition: Hospice Medical Facility Anticipated Discharge Date: Discharge Date: Expected LOS: Initial Reviewer: [email or web address] Initial Review Date: 10/03/2019 Generated: 10/08/19 1:14 pm Comments DCP- Discharge Planning Updated by [id number]: Soraida Patelsagar on 10/08/19 11:[address] CM met with patient about his ID forms. He states Silva does not get off work until tonight. I informed him yesterday he told me she would bring it this morning. He states that he will call her at work and see if she can bring it today. I informed him that I was here until 5 and he needed to get it to me today. I informed him he is ready for discharge, but we cannot get him into [facility] without his identification. DCP- Discharge Planning Updated by [id number]: Soraida Patelsagar on 10/07/19 12:[address] Met with the patient to see if he has received his ID. He states that he did call his friend, Silva, and she will be bringing his wallet with his ID and certificate after work tomorrow morning. I called estefanía Monique for [facility], they are still considering admission with proper identification. CM will continue to follow and assist with discharge planning/needs. DCP- Discharge Planning Updated by [id number]: Soraida Patelsagar on 10/06/19 3:[address] Received a call from Octavia from [facility], she states that the SS# was wrong and the patient's name is Ford Ortiz, not Zeinab. I have emailed correct SS# to registration. He states his friend, Carlos Joseph, that he lived with has his SS card, ID and Certificate and he can call Carlos's (Silva) at [employer] (where she works at [employer]) [facility] to have her bring them to him. I asked Octavia if [facility] would still consider admission and she states she will let me know in the am. Patient has chosen [facility] his second choice and I will send referral there tomorrow after his friend brings ID. CM will continue to follow and assist with discharge planning/needs. DCP- Discharge Planning Updated by [id number]: Soraida Crabtree on 10/06/19 11:[address] I spoke with the patient after Dr. Schultz informed me that he was wanting to do chemo and not hospice at this time. I called Maddie with [facility] and informed her. She states "ok, I will let Jose know." I spoke with estefanía Dudley for [facility], and informed her as well. She states they may still be able to accept patient after financials are completed. I provided patient with coat, gloves, and socks from [facility]. CM will continue to assist with discharge planning/needs. DCP- Discharge Planning Updated by [id number]: Soraida Crabtree on 10/05/19 12:[address] Jaden from [facility] was here and signed papers with the patient. After Jaden's visit, the patient requested to see me. He states that he is unsure if he still wants hospice and asked for all options. I did tell him that I could continue the referral to [facility], they may be able to help him with a assisted bed if he is able to stay for 30 days. I informed him to speak with Dr. Schultz for her advice and then make his decision. CM will continue to follow and assist with discharge planning/needs. DCP- Discharge Planning Updated by [id number]: Soraida Leyda on 10/05/19 8:[address] Patient states he has no family. The Ira Smith is his aunt, but he has no contact with her. He states he was living with a friend, Carlos Singer, but cannot live there any more. He declined information on homeless shelters. Referral sent to [facility]. CM will continue to follow and assist with discharge planning/needs. DCP- Discharge Planning Updated by [id number]: Soraida Crabtree on 10/05/19 8:[address] CM met with patient to discuss discharge plan. I instructed him on going to a LTC care home with his Medicaid vs LTC care home for hospice. He states he has decided to do care home with [facility] at this time. I called [facility] and spoke with Jaden, he states he will come out this afternoon to see the patient. HAKEEM for [facility] signed. I messaged Octavia Fonseca with [facility] and informed her and clinical faxed. CM will continue to follow and assist with discharge planning/needs. DCP- Discharge Planning Updated by [id number]: Soraida Crabtree on 10/04/19 3:[address] Patient is sleeping. I will meet with him in the morning. CM will continue to follow and assist with discharge planning/needs. DCP- Discharge Planning Updated by [id number]: Soraida Crabtree on 10/04/19 8:[address] CM went to room to meet with patient and he has asked me to come back this afternoon, states he is tired. I will come back at a later time to discuss housing options/homeless shelters. CM will continue to follow and assist with discharge planning/needs. DCP- Discharge Planning Updated by [id number]: Collette Rowland on 10/03/19 6:[address] Patient Name: ZEINAB ORTIZ Admission Status: ER Accout number: [id number] Admission Date: 09-29-2019 : 1965 Admission Diagnosis:MALIGNANT NEOPLASM OF COLON, UNSPECIFIED Attending: RON PARRY Current LOS: 4 Anticipated DC Date: Planned Disposition: Primary Insurance: MEDICAID [place] PENDING Discharge Planning Comments: CM met with patient at bedside after explaining CM role and obtaining verbal consent. CM discussed availability / needs of home health, REHAB , HOSPICE AND medical equipment. PATIENT WOULD LIKE [facility] AT THEIR INPATIENT FACILITY IF POSSIBLE. I HAVE CONTACTED MARQUIS WITH [facility] AND FAXED DOCUMENTS TO THEM. THEY ARE PROCESSING IT AND PLANNING TO SEND THEIR NURSE OUT IN SEVERAL HOURS. I ALSO GAVE PATIENT BROSHURES. CM WILL FOLLOW AND ASSIST NEEDED. General Operations Manager: Collette Rowland Appended by Collette Rowland on 10/03/2019 19:09 SENIOR QUALITY MANAGER: JAMES CASTILLO WITH [facility] CAME OUT TO ASSES PATIENT. IT DOESN'T LOOK LIKE HE IS APPROPRIATE FOR THEIR INPATIENT UNIT RIGHT NOW. STATES WE NEED TO WORK ON PLACEMENT FOR HIM AND THEY ARE STARTING THEIR ADMISSION PROCESS. SOME OPTIONS FOR PLACEMENT MAY BE [facility], [facility] OR [facility]. JAMES STATES PATIENT WANTS TO THINK ON IT OVER NIGHT. HOSPICE WILL SEND AN ACCESS NURSE OUT TOMORROW AND WILL TALK TO US AND THE PATIENT. CM TO FOLLOW AND ASSIST. Coverage Notice Reviewer: [id number] Richard Crabtree Notice Issued Date-Time: 10/05/2019 9:27 Notice Type: Patient Choice Letter Notice Delivered To: Patient Relationship to Patient: Self Health Information Technologist Name: Delivery Method: HAND - Hand Delivered Pastora Days: Prior Verbal Notification: Recipient Understood Notice: Yes Recipient Signature: Yes Med Rec Note Co-signed by Attending: Coverage Notice Comment: HAKEEM for 1)[facility] 2) [facility] Last DP export: 10/07/19 12:15 Patient Name: ZEINAB ORTIZ Page [id number] at 1214 All edits/amendments must be made on the electronic document DICTATION DATE: 10/08/19 121 DAIRY FARM WORKER: RIKI 10/08/19 1214 RPT#: [id number] DC DATE: STATUS: ADM IN [facility] [address] [place] [address] END OF REPORT
[2019-10-08 12:49] VITALS: BP 125/83
[2019-10-08 18:08] VITALS: BP 155/100
[2019-10-08 20:00] VITALS: BP 144/99
[2019-10-09] VITALS: BP 174/112
[2019-10-09 04:00] VITALS: BP 142/98
[2019-10-09 06:45] LABS: HEMATOCRIT 31.2 % (42.0-54.0); HEMOGLOBIN 9.6 g/dL (13.5-17.5); MCH 24.1 pg (26.0-34.0); MCHC 30.8 g/dL (31.0-37.0); MCV 78.4 fL (80.0-100.0); MEAN PLATELET VOLUME 9.1 fL (7.4-10.4); PLATELET COUNT 440 10x3/uL (130-400); RBC 3.98 10x6/uL (4.20-6.10); RDW 16.8 % (11.5-14.5); WBC 2.9 10x3/uL (4.8-10.8)
[2019-10-09 07:01] LABS: ALBUMIN 1.8 g/dL (3.4-5.0); ALKALINE PHOSPHATASE 136 U/L (46-116); ALT (SGPT) 11 U/L (10-68); BILIRUBIN - TOTAL 0.54 mg/dL (0.2-1.3); CALC OSMOLALITY 270 mosm/kg (275-300); CALCIUM 7.9 mg/dL (8.5-10.1); CARBON DIOXIDE 30.4 mmol/L (21.0-32.0); CHLORIDE - SERUM 99 mmol/L (98-107); CREATININE - SERUM 0.6 mg/dL (0.6-1.3); GLUCOSE 102 mg/dL (74-106); POTASSIUM - SERUM 3.4 mmol/L (3.5-5.1); PROTEIN - SERUM 6.3 g/dL (6.4-8.2); SODIUM 135 mmol/L (136-145); UREA NITROGEN 14 mg/dL (7-18); eGFR NON AFRICAN AMERICAN > 90 mL/min (90-120)
--- NOTE | 2019-10-09 07:57 | NUR ---
SPOKE WITH DR VILLALBA WHO STATES OK TO RESTART PATIENT'S ZOFRAN DRIP. ALSO NOTIFIED THAT PATIENT'S PAIN MEDICATIONS NOT WORKING. STATES WILL ADJUST PAIN MEDS.
[2019-10-09 08:16] LABS: EOSINOPHILS 1 % (0-7); LYMPHOCYTES 17 % (15-50); MONOCYTES 18 % (2-11); PLATELET ESTIMATE NORMAL; PLATELET MORPHOLOGY GIANT PLTS PRESENT
[2019-10-09 08:17] LABS: NEUTROPHILS 40 % (40-80)
--- NOTE | 2019-10-09 08:20 | NUR ---
ALERT AND ORIENTED. LUNGS CLEAR BILATERALLY. HEART SOUNDS S1 AND S2 HEARD IN ALL BARLOW. BOWEL SOUNDS HYPOACTIVE X 4. GAS NOTED TO OSTOMY. OSTOMY BAG BURPED. ABD MIDLINE INCISION C/D/I. NO S/SX INFECTION NOTED. RIGHT CHEST PORT PATENT WITHOUT REDNESS. DENIES NEEDS. BED LOW. CALL YATES AND PERSONAL ITEMS IN REACH. WILL CONTINUE TO MONITOR.
[2019-10-09 08:22] VITALS: BP 137/81
--- NOTE | 2019-10-09 11:34 | NUR ---
TAKEN FOR CT.
[2019-10-09 12:57] VITALS: BP 147/68
--- NOTE | 2019-10-09 15:33 | NUR ---
SPOKE WITH DR PARRY ABOUT INCREASING PATIENT'S PAIN MEDICATION. STATES WILL INCREASE MEDS.
--- NOTE | 2019-10-09 17:57 | NUR ---
PATIENT SLEEPING. BED LOW. CALL YATES AND PERSONAL ITEMS IN REACH.
--- NOTE | 2019-10-09 19:15 | NUR ---
PATIENT RESTING IN BED WITH EYES CLOSED AND NO S/S OF DISTRESS. BED IN LOWEST POSITION AND CALL LIGHT WITHIN REACH. WILL CONTINUE TO MONITOR.
[2019-10-09 19:57] VITALS: BP 134/77
[2019-10-10] VITALS: BP 151/94
[2019-10-10 04:00] VITALS: BP 134/88
[2019-10-10 06:37] LABS: MCH 24.4 pg (26.0-34.0)
--- NOTE | 2019-10-10 06:49 | NUR ---
HGB AND HCT LOWER THAN PREVIOUS RESULTS. WILL REDRAW LABS.
[2019-10-10 07:46] VITALS: BP 146/72
--- NOTE | 2019-10-10 07:57 | NUR ---
ALERT AND ORIENTED. LUNGS CLEAR BILATERALLY. HEART SOUNDS S1 AND S2 HEARD IN ALL BARLOW. BOWEL SOUNDS ACTIVE X 4. LEFT SIDE OSTOMY PATENT. MIDLINE ABD INCISION C/D/I. NO S/SX INFECTION NOTED. SKIN OTHERWISE INTACT WITHOUT REDNESS. RIGHT CHEST PORT PATENT WITHOUT REDNESS. DENIES NEEDS. BED LOW. CALL YATES AND PERSONAL ITEMS IN REACH. WILL CONTINUE TO MONITOR.
--- NOTE | 2019-10-10 08:00 | NUR ---
YUMIKO FROM LAB STATING HEMOGLOBIN 9.2 AND HEMATOCRIT 29.7 ON REDRAW.
[2019-10-10 08:03] LABS: HEMOGLOBIN 9.2 g/dL (13.5-17.5); RBC 3.77 10x6/uL (4.20-6.10); WBC 3.6 10x3/uL (4.8-10.8)
[2019-10-10 08:04] LABS: HEMATOCRIT 29.7 % (42.0-54.0); MCV 78.8 fL (80.0-100.0); MEAN PLATELET VOLUME 8.9 fL (7.4-10.4); PLATELET COUNT 416 10x3/uL (130-400); RDW 16.8 % (11.5-14.5)
[2019-10-10 08:05] LABS: BASOPHILS 0.6 % (0-2); EOSINOPHILS 1.7 % (0-7); IMMATURE GRANULOCYTES 0.3 % (0-5); LYMPHOCYTES 16.3 % (15-50); NEUTROPHILS 63.1 % (40-80)
[2019-10-10 08:12] LABS: ALBUMIN 1.7 g/dL (3.4-5.0); ALKALINE PHOSPHATASE 119 U/L (46-116); ALT (SGPT) 12 U/L (10-68); BILIRUBIN - TOTAL 0.44 mg/dL (0.2-1.3); CALC OSMOLALITY 271 mosm/kg (275-300); CARBON DIOXIDE 30.2 mmol/L (21.0-32.0); CHLORIDE - SERUM 100 mmol/L (98-107); CREATININE - SERUM 0.7 mg/dL (0.6-1.3); GLUCOSE 84 mg/dL (74-106); POTASSIUM - SERUM 3.9 mmol/L (3.5-5.1); PROTEIN - SERUM 6.1 g/dL (6.4-8.2); SODIUM 136 mmol/L (136-145); UREA NITROGEN 16 mg/dL (7-18); eGFR NON AFRICAN AMERICAN > 90 mL/min (90-120)
--- NOTE | 2019-10-10 12:05 | NUR ---
OSTOMY BAG CHANGED D/T LEAKING.
[2019-10-10 12:08] VITALS: BP 144/69
--- NOTE | 2019-10-10 12:27 | NUR ---
RESTING IN BED. DENIES NEEDS. WILL CONTINUE TO MONITOR.
--- NOTE | 2019-10-10 15:46 | NUR ---
PATIENT SLEEPING. WILL CONTINUE TO MONITOR.
[2019-10-10 16:31] VITALS: BP 110/60
--- NOTE | 2019-10-10 18:04 | NUR ---
RESTING IN BED. DENIES NEEDS. BED LOW. CALL YATES AND PERSONAL ITEMS IN REACH.
--- NOTE | 2019-10-10 19:04 | NUR ---
PATIENT RESTING IN BED WITH NO S/S OF DISTRESS. PATIENT REQUESTED PAIN MEDICATION. EXPLAINED TO THE PATIENT THAT HIS NEXT DOSE OF DILAUDID WOULD BE AVAILABLE AT 1930. PATIENT VERBALIZED UNDERSTANDING. PATIENT DENIES OTHER NEEDS AT THIS TIME. BED IN LOWEST POSITION AND CALL LIGHT WITHIN REACH. ENCOURAGED THE PATIENT TO CALL IF SHE HAS NEEDS. WILL CONTINUE TO MONITOR.
[2019-10-10 20:00] VITALS: BP 131/89
[2019-10-11] VITALS: BP 120/80
[2019-10-11 04:00] VITALS: BP 147/84
[2019-10-11 05:44] LABS: BASOPHILS 0.2 % (0-2); EOSINOPHILS 1.3 % (0-7); HEMATOCRIT 29.6 % (42.0-54.0); IMMATURE GRANULOCYTES 0.4 % (0-5); LYMPHOCYTES 12.7 % (15-50); MCH 23.9 pg (26.0-34.0); MCHC 30.4 g/dL (31.0-37.0); MCV 78.7 fL (80.0-100.0); MEAN PLATELET VOLUME 9.2 fL (7.4-10.4); MONOCYTES 14.9 % (2-11); NEUTROPHILS 70.5 % (40-80); PLATELET COUNT 385 10x3/uL (130-400); RBC 3.76 10x6/uL (4.20-6.10); RDW 16.7 % (11.5-14.5)
[2019-10-11 05:56] LABS: WBC 4.7 10x3/uL (4.8-10.8)
[2019-10-11 06:20] LABS: ALBUMIN 1.7 g/dL (3.4-5.0); ALKALINE PHOSPHATASE 123 U/L (46-116); ALT (SGPT) 11 U/L (10-68); BILIRUBIN - TOTAL 0.28 mg/dL (0.2-1.3); CALC OSMOLALITY 274 mosm/kg (275-300); CALCIUM 7.7 mg/dL (8.5-10.1); CARBON DIOXIDE 32.3 mmol/L (21.0-32.0); CHLORIDE - SERUM 102 mmol/L (98-107); CREATININE - SERUM 0.7 mg/dL (0.6-1.3); GLUCOSE 92 mg/dL (74-106); POTASSIUM - SERUM 3.4 mmol/L (3.5-5.1); PROTEIN - SERUM 5.9 g/dL (6.4-8.2); SODIUM 137 mmol/L (136-145); UREA NITROGEN 14 mg/dL (7-18); eGFR NON AFRICAN AMERICAN > 90 mL/min (90-120)
--- NOTE | 2019-10-11 07:33 | NUR ---
ALERT AND ORIENTED. LUNGS CLEAR BILATERALLY. HEART SOUNDS S1 AND S2 HEARD IN ALL BARLOW. BOWEL SOUNDS ACTIVE X 4. LEFT SIDE OSTOMY PATENT. MIDLINE INCISION C/D/I. NO S/SX INFECTION. RIGHT CHEST PORT PATENT WITHOUT REDNESS. DENIES NEEDS. BED LOW. CALL YATES AND PERSONAL ITEMS IN REACH. WILL CONTINUE TO MONITOR.
[2019-10-11 08:21] VITALS: BP 140/86
--- NOTE | 2019-10-11 12:42 | NUR ---
RESTING IN BED. REQUESTED AND GIVEN PAIN MEDICATION. DENIES NEEDS. WILL CONTINUE TO MONITOR.
[2019-10-11 13:15] VITALS: BP 143/89
--- NOTE | 2019-10-11 13:47 | NUR ---
Nutrition follow-up: Diet: Regular as tolerated PO Intake ~40% average of last 4 meals Labs reviewed Wt: 144# Pt may benefit from appetite stimulant RDN following.
[2019-10-11 16:19] VITALS: BP 130/100
--- NOTE | 2019-10-11 18:00 | NUR ---
PATIENT ATE 50% OF DINNER. STATES NOT FEELING NAUSEAS OR SICK.
--- NOTE | 2019-10-11 18:36 | NUR ---
RESTING IN BED. DENIES NEEDS. CALL YATES AND PERSONAL ITEMS IN REACH.
[2019-10-11 20:53] VITALS: BP 150/89
[2019-10-12 04:44] VITALS: BP 150/97
--- NOTE | 2019-10-12 04:51 | NUR ---
I have reviewed this patient and I concur with the Shift Assessment completed by the Licensed Practical Nurse today this shift.
[2019-10-12 07:20] LABS: BASOPHILS 0.4 % (0-2); EOSINOPHILS 1.7 % (0-7); HEMATOCRIT 30.2 % (42.0-54.0); HEMOGLOBIN 9.2 g/dL (13.5-17.5); IMMATURE GRANULOCYTES 0.4 % (0-5); MCH 23.9 pg (26.0-34.0); MCHC 30.5 g/dL (31.0-37.0); MCV 78.4 fL (80.0-100.0); MEAN PLATELET VOLUME 9.3 fL (7.4-10.4); MONOCYTES 15.2 % (2-11); NEUTROPHILS 72.3 % (40-80); PLATELET COUNT 402 10x3/uL (130-400); RBC 3.85 10x6/uL (4.20-6.10); RDW 16.7 % (11.5-14.5); WBC 4.6 10x3/uL (4.8-10.8)
[2019-10-12 07:22] LABS: CALCIUM 7.9 mg/dL (8.5-10.1); CARBON DIOXIDE 30.6 mmol/L (21.0-32.0); CHLORIDE - SERUM 98 mmol/L (98-107); CREATININE - SERUM 0.8 mg/dL (0.6-1.3); GLUCOSE 87 mg/dL (74-106); SODIUM 133 mmol/L (136-145); eGFR NON AFRICAN AMERICAN > 90 mL/min (90-120)
[2019-10-12 07:23] LABS: CALC OSMOLALITY 263 mosm/kg (275-300); POTASSIUM - SERUM 4.1 mmol/L (3.5-5.1); UREA NITROGEN 9 mg/dL (7-18)
[2019-10-12 08:35] VITALS: BP 153/81
[2019-10-12 12:15] VITALS: BP 167/76
--- NOTE | 2019-10-12 12:24 | MORECARE ---
CASE MANAGEMENT DISCHARGE SUMMARY PATIENT: ZEINAB ORTIZ UNIT: [id number] ADM DATE: 09/29/19 AGE: 54 : 65 SEX: M ROOM/BED: D.2228 AUTHOR: JULIA ROJAS PHYSICIAN: REFERRING PHYSICIAN: RON PARRY MD DATE OF SERVICE: 10/12/19 Discharge Plan Patient Name: ZEINAB ORTIZ Facility: [facility]:[place] : 1965 Planned Disposition: Hospice Medical Facility Anticipated Discharge Date: Discharge Date: Expected LOS: Initial Reviewer: [email or web address] Initial Review Date: 10/03/2019 Generated: 10/12/19 1:24 pm Comments DCP- Discharge Planning Updated by [email or web address]: Soraida Patelsagar on 10/12/19 11:[address] I met with patient this morning concerning his ID. He states that his friend did not bring him his documents. He states "I can get a new one from vital records once I have a mailing address for it to be sent to." I spoke with estefanía Dudley for [facility], they will be unable to accept him until he has proper ID. I called his second choice, [facility], and spoke with Oliver and informed her of his current situation and clinical faxed for their review. CM will continue to follow and assist with discharge planning/needs. DCP- Discharge Planning Updated by [id number]: Soraida Leyda on 10/08/19 11:[address] CM met with patient about his ID forms. He states Silva does not get off work until tonight. I informed him yesterday he told me she would bring it this morning. He states that he will call her at work and see if she can bring it today. I informed him that I was here until 5 and he needed to get it to me today. I informed him he is ready for discharge, but we cannot get him into [facility] without his identification. DCP- Discharge Planning Updated by [id number]: Soraida Patelsagar on 10/07/19 12:[address] Met with the patient to see if he has received his ID. He states that he did call his friend, Silva, and she will be bringing his wallet with his ID and certificate after work tomorrow morning. I called estefanía Monique for [facility], they are still considering admission with proper identification. CM will continue to follow and assist with discharge planning/needs. DCP- Discharge Planning Updated by [id number]: Soraida Crabtree on 10/06/19 3:[address] Received a call from Octavia from [facility], she states that the SS# was wrong and the patient's name is Ford Ortiz, not Zeinab. I have emailed correct SS# to registration. He states his friend, aCrlos Ruiz, that he lived with has his SS card, ID and Certificate and he can call Carlos's (Silva) at [employer] (where she works at 10PM) [facility] to have her bring them to him. I asked Octavia if [facility] would still consider admission and she states she will let me know in the am. Patient has chosen [facility] as his second choice and I will send referral there tomorrow after his friend brings ID. CM will continue to follow and assist with discharge planning/needs. DCP- Discharge Planning Updated by [id number]: Soraida Crabtree on 10/06/19 11:[address] I spoke with the patient after Dr. Schultz informed me that he was wanting to do chemo and not hospice at this time. I called Maddie with [facility] and informed her. She states "ok, I will let Jose know." I spoke with estefanía Dudley for [facility], and informed her as well. She states they may still be able to accept patient after financials are completed. I provided patient with coat, gloves, and socks from [facility]. CM will continue to assist with discharge planning/needs. DCP- Discharge Planning Updated by [id number]: Soraida Patelsagar on 10/05/19 12:[address] Jaden from [facility] was here and signed papers with the patient. After Jaden's visit, the patient requested to see me. He states that he is unsure if he still wants hospice and asked for all options. I did tell him that I could continue the referral to [facility], they may be able to help him with a manager intermediate bed if he is able to stay for 30 days. I informed him to speak with Dr. Schultz for her advice and then make his decision. CM will continue to follow and assist with discharge planning/needs. DCP- Discharge Planning Updated by [id number]: Soraida Crabtree on 10/05/19 8:[address] Patient states he has no family. The Ira Smith is his aunt, but he has no contact with her. He states he was living with a friend, Carlos Singer, but cannot live there any more. He declined information on homeless shelters. Referral sent to [facility]. CM will continue to follow and assist with discharge planning/needs. DCP- Discharge Planning Updated by [id number]: Soraida Crabtree on 10/05/19 8:[address] CM met with patient to discuss discharge plan. I instructed him on going to a LTC senior care with his Medicaid vs LT senior care for hospice. He states he has decided to do senior care with [facility] at this time. I called [facility] and spoke with Jaden, he states he will come out this afternoon to see the patient. HAKEEM for [facility] signed. I messaged Octavia Fonseca with [facility] and informed her and clinical faxed. CM will continue to follow and assist with discharge planning/needs. DCP- Discharge Planning Updated by [id number]: Soraida Patelsagar on 10/04/19 3:[address] Patient is sleeping. I will meet with him in the morning. CM will continue to follow and assist with discharge planning/needs. DCP- Discharge Planning Updated by [id number]: Soraidaambreen Crabtree on 10/04/19 8:[address] CM went to room to meet with patient and he has asked me to come back this afternoon, states he is tired. I will come back at a later time to discuss housing options/homeless shelters. CM will continue to follow and assist with discharge planning/needs. DCP- Discharge Planning Updated by [id number]: Collette Rowland on 10/03/19 6:[address] Patient Name: ZEINAB ORTIZ Admission Status: ER Accout number: [id number] Admission Date: 09-29-2019 : 1965 Admission Diagnosis:MALIGNANT NEOPLASM OF COLON, UNSPECIFIED Attending: RON PARRY Current LOS: 4 Anticipated DC Date: Planned Disposition: Primary Insurance: MED[place]ID [place]END[place] Discharge Planning Comments: CM met with patient at bedside after explaining CM role and obtaining verbal consent. CM discussed availability / needs of home health, REHAB , HOSPICE AND medical equipment. PATIENT WOULD LIKE [facility] AT THEIR INPATIENT FACILITY IF POSSIBLE. I HAVE CONTACTED MARQUIS WITH [facility] AND FAXED DOCUMENTS TO THEM. THEY ARE PROCESSING IT AND PLANNING TO SEND THEIR NURSE OUT IN SEVERAL HOURS. I ALSO GAVE PATIENT BROSHURES. CM WILL FOLLOW AND ASSIST NEEDED. Government Affairs Fellow: Collette Rowland Appended by Collette Rowland on 10/03/2019 19:09 ARMHOLE SEWER: JAMES RN WITH [facility] CAME OUT TO ASSES PATIENT. IT DOESN'T LOOK LIKE HE IS APPROPRIATE FOR THEIR INPATIENT UNIT RIGHT NOW. STATES WE NEED TO WORK ON PLACEMENT FOR HIM AND THEY ARE STARTING THEIR ADMISSION PROCESS. SOME OPTIONS FOR PLACEMENT MAY BE [facility], [facility], [facility] OR [facility]. JAMES STATES PATIENT WANTS TO THINK ON IT OVER NIGHT. HOSPICE WILL SEND AN ACCESS NURSE OUT TOMORROW AND WILL TALK TO US AND THE PATIENT. CM TO FOLLOW AND ASSIST. External Providers External Provider: [facility] Next Contact Date: Service Request Date: Service Type: Resolution: Reviewer: Comments: Coverage Notice Reviewer: [email or web address] Richard Crabtree Notice Issued Date-Time: 10/05/2019 9:27 Notice Type: Patient Choice Letter Notice Delivered To: Patient Relationship to Patient: Self Account Service Associate Name: Delivery Method: HAND - Hand Delivered Pastora Days: Prior Verbal Notification: Recipient Understood Notice: Yes Recipient Signature: Yes Med Rec Note Co-signed by Attending: Coverage Notice Comment: HAKEEM for 1)[facility] 2) [facility] Last DP export: 10/08/19 11:14 Patient Name: ZEINAB ORTIZ Page [id number] at 1224 All edits/amendments must be made on the electronic document DICTATION DATE: 10/12/19 1224 PAIRER ODDS: RIKI 10/12/19 1224 RPT#: [id number] DC DATE: STATUS: ADM IN [facility] [address] [place] [address] END OF REPORT
[2019-10-12 16:51] VITALS: BP 112/60
--- NOTE | 2019-10-12 20:00 | NUR ---
ASSESSMENT PER FLOWSHEET. ABD. INCISION WITH CLIPS INTACT C/D/I. IV TO RT INFUSAPORT WITH ZOFRAN AT 4.7CC'S/HR AND NS AT 50CC'S/HR. SITE CLEAR. LEFT COLOSTOMY IN PLACE AIR EMPTIED.SR UP X2 CALL LIGHT WITHIN REACH.
[2019-10-12 20:48] VITALS: BP 163/96
--- NOTE | 2019-10-12 21:00 | NUR ---
MEDS GIVEN PER MAR.
--- NOTE | 2019-10-12 22:00 | NUR ---
C/O PAIN IN ABDOMEN. DILAUDID 1MG IVP GIVEN FOR PAIN CONTROL.
--- NOTE | 2019-10-12 23:34 | NUR ---
REQUESTING PO PAIN MED PAIN WAS UNRELIEVED WITH PAIN SHOT. PERCOCET TAB ONE PO GIVEN FOR PAIN RELIEF.
[2019-10-13 00:59] VITALS: BP 162/102
--- NOTE | 2019-10-13 01:00 | NUR ---
EYES CLOSED RESPIRATIONS WITH EASE AND UNLABORED.
--- NOTE | 2019-10-13 03:17 | NUR ---
C/O ABDOMINAL PAIN RATES PAIN LEVEL #8 DILAUDID 1MG IVP GIVEN FOR PAIN CONTROL.
[2019-10-13 05:12] VITALS: BP 139/87
--- NOTE | 2019-10-13 07:00 | NUR ---
ALERT AND ORIENTED, RESTING IN BED. NO C/O PAIN. NO S/S OF ACUTE DISTRESS NOTED. COLOSTOMY LUQ, MIDLINE INCISION WITH PINO, DRESSING C/D/I. LEFT CHEST PORT, NS INFUSING @ 50ML/HR, ZOFRAN INFUSING @ 4.7ML/HR. SITE PATENT WITHOUT REDNESS OR SWELLING. ON TELEMETRY SB 58. DENIES ANY NEEDS AT THIS TIME. CALL LIGHT IN REACH. WILL CONTINUE TO MONITOR.
[2019-10-13 08:37] VITALS: BP 159/96
[2019-10-13 11:59] VITALS: BP 156/90
--- NOTE | 2019-10-13 12:40 | MORECARE ---
CASE MANAGEMENT DISCHARGE SUMMARY PATIENT: ZEINAB ORTIZ UNIT: [id number] ADM DATE: 09/29/19 AGE: 54 : 65 SEX: M ROOM/BED: D.2228 AUTHOR: BOBDOC PHYSICIAN: REFERRING PHYSICIAN: RON PARRY MD DATE OF SERVICE: 10/13/19 Discharge Plan Patient Name: ZEINAB ORTIZ Facility: [facility]:[place] : 1965 Planned Disposition: Hospice Medical Facility Anticipated Discharge Date: Discharge Date: Expected LOS: Initial Reviewer: [id number] Initial Review Date: 10/03/2019 Generated: 10/13/19 1:39 pm Comments DCP- Discharge Planning Updated by [id number]: Soraida Crabtree on 10/13/19 11:[address] I called Oliver with [facility]. 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 She will call me back when she gets confirmation. I spoke with the patient and he is in agreement to [facility] if accepted. CM will continue to follow and assist with discharge planning/needs. DCP- Discharge Planning Updated by [id number]: Soraida Crabtree on 10/12/19 11:[address] I met with patient this morning concerning his ID. He states that his friend did not bring him his documents. He states "I can get a new one from vital records once I have a mailing address for it to be sent to." I spoke with estefanía Dudley for [facility], they will be unable to accept him until he has proper ID. I called his second choice, [facility], and spoke with Oliver and informed her of his current situation and clinical faxed for their review. CM will continue to follow and assist with discharge planning/needs. DCP- Discharge Planning Updated by [id number]: Soraida Crabtree on 10/08/19 11:[address] CM met with patient about his ID forms. He states Silva does not get off work until tonight. I informed him yesterday he told me she would bring it this morning. He states that he will call her at work and see if she can bring it today. I informed him that I was here until 5 and he needed to get it to me today. I informed him he is ready for discharge, but we cannot get him into [facility] without his identification. DCP- Discharge Planning Updated by [id number]: Soraida Crabtree on 10/07/19 12:[address] Met with the patient to see if he has received his ID. He states that he did call his friend, Silva, and she will be bringing his wallet with his ID and certificate after work tomorrow morning. I called estefanía Monique for [facility], they are still considering admission with proper identification. CM will continue to follow and assist with discharge planning/needs. DCP- Discharge Planning Updated by [id number]: Soraida Crabtree on 10/06/19 3:[address] Received a call from Octavia from [facility], she states that the SS# was wrong and the patient's name is Ford Ortiz, not Zeinab. I have emailed correct SS# to registration. He states his friend, Carlos Ruiz, that he lived with has his SS card, ID and Certificate and he can call Carlos's (Silva) at [employer] [employer] (where she works at 10PM) [employer] to have her bring them to him. I asked Octavia if [facility] would still consider admission and she states she will let me know in the am. Patient has chosen [facility] as his second choice and I will send referral there tomorrow after his friend brings ID. CM will continue to follow and assist with discharge planning/needs. DCP- Discharge Planning Updated by [id number]: Soraida Leyda on 10/06/19 11:[address] I spoke with the patient after Dr. Schultz informed me that he was wanting to do chemo and not hospice at this time. I called Maddie with [facility] and informed her. She states "ok, I will let Jose know." I spoke with estefanía Dudley for [facility], and informed her as well. She states they may still be able to accept patient after financials are completed. I provided patient with coat, gloves, and socks from [facility]. CM will continue to assist with discharge planning/needs. DCP- Discharge Planning Updated by [id number]: Soraida Crabtree on 10/05/19 12:[address] Jaden from [facility] was here and signed papers with the patient. After Jaden's visit, the patient requested to see me. He states that he is unsure if he still wants hospice and asked for all options. I did tell him that I could continue the referral to [facility], they may be able to help him with a terminal carman bed if he is able to stay for 30 days. I informed him to speak with Dr. Schultz for her advice and then make his decision. CM will continue to follow and assist with discharge planning/needs. DCP- Discharge Planning Updated by [id number]: Soraida Leyda on 10/05/19 8:[address] Patient states he has no family. The Ira Smith is his aunt, but he has no contact with her. He states he was living with a friend, Carlos Singer, but cannot live there any more. He declined information on homeless shelters. Referral sent to [facility] for [facility]. CM will continue to follow and assist with discharge planning/needs. DCP- Discharge Planning Updated by [id number]: Soraida Crabtree on 10/05/19 8:[address] CM met with patient to discuss discharge plan. I instructed him on going to a LTC care home with his Medicaid vs LTC care home for hospice. He states he has decided to do care home with [facility] at this time. I called [facility] and spoke with Jaden, he states he will come out this afternoon to see the patient. HAKEEM for [facility] signed. I messaged Octavia Fonseca with [facility] and informed her and clinical faxed. CM will continue to follow and assist with discharge planning/needs. DCP- Discharge Planning Updated by [id number]: Soraida Crabtree on 10/04/19 3:[address] Patient is sleeping. I will meet with him in the morning. CM will continue to follow and assist with discharge planning/needs. DCP- Discharge Planning Updated by [id number]: Soraida Crabtree on 10/04/19 8:[address] CM went to room to meet with patient and he has asked me to come back this afternoon, states he is tired. I will come back at a later time to discuss housing options/homeless shelters. CM will continue to follow and assist with discharge planning/needs. DCP- Discharge Planning Updated by [id number]: Collette Rowland on 10/03/19 6:[address] Patient Name: ZEINAB ORTIZ Admission Status: ER Accout number: [id number] Admission Date: 09-29-2019 : 1965 Admission Diagnosis:MALIGNANT NEOPLASM OF COLON, UNSPECIFIED Attending: RON PARRY Current LOS: 4 Anticipated DC Date: Planned Disposition: Primary Insurance: MED[place]ID [place] PEND[place] Discharge Planning Comments: CM met with patient at bedside after explaining CM role and obtaining verbal consent. CM discussed availability / needs of home health, REHAB , HOSPICE AND medical equipment. PATIENT WOULD LIKE [facility] AT THEIR INPATIENT FACILITY IF POSSIBLE. I HAVE CONTACTED MARQUIS WITH [facility] AND FAXED DOCUMENTS TO THEM. THEY ARE PROCESSING IT AND PLANNING TO SEND THEIR NURSE OUT IN SEVERAL HOURS. I ALSO GAVE PATIENT BROSHURES. CM WILL FOLLOW AND ASSIST NEEDED. Clinical Trial Associate: Collette Rowland Appended by Collette Rowland on 10/03/2019 19:09 ALTERNATIVE ENERGY TECHNICIAN: JAMES RN WITH [facility] CAME OUT TO ASSES PATIENT. IT DOESN'T LOOK LIKE HE IS APPROPRIATE FOR THEIR INPATIENT UNIT RIGHT NOW. STATES WE NEED TO WORK ON PLACEMENT FOR HIM AND THEY ARE STARTING THEIR ADMISSION PROCESS. SOME OPTIONS FOR PLACEMENT MAY BE [facility], [facility], [facility] OR [facility]. JAMES STATES PATIENT WANTS TO THINK ON IT OVER NIGHT. HOSPICE WILL SEND AN ACCESS NURSE OUT TOMORROW AND WILL TALK TO US AND THE PATIENT. CM TO FOLLOW AND ASSIST. Coverage Notice Reviewer: [id number] Richard Crabtree Notice Issued Date-Time: 10/05/2019 9:27 Notice Type: Patient Choice Letter Notice Delivered To: Patient Relationship to Patient: Self Contract Administrative Assistant Name: Delivery Method: HAND - Hand Delivered Pastora Days: Prior Verbal Notification: Recipient Understood Notice: Yes Recipient Signature: Yes Med Rec Note Co-signed by Attending: Coverage Notice Comment: HAKEEM for 1)[facility] 2) [facility] Last DP export: 10/12/19 11:24 Patient Name: ZEINAB ORTIZ Page [id number] at 1240 All edits/amendments must be made on the electronic document DICTATION DATE: 10/13/19 1239 FRONT END WEB DESIGNER: RIKI 10/13/19 1239 RPT#: [id number] DC DATE: STATUS: ADM IN [facility] [address] [place] [address] END OF REPORT
--- NOTE | 2019-10-13 13:39 | MORECARE ---
CASE MANAGEMENT DISCHARGE SUMMARY PATIENT: ZEINAB ORTIZ UNIT: [id number] ADM DATE: 09/29/19 AGE: 54 : 65 SEX: M ROOM/BED: D.2228 AUTHOR: BOBDOC PHYSICIAN: REFERRING PHYSICIAN: RON PARRY MD DATE OF SERVICE: 10/13/19 Discharge Plan Patient Name: ZEINAB ORTIZ Facility: [facility]:[place] : 1965 Planned Disposition: Hospice Medical Facility Anticipated Discharge Date: Discharge Date: Expected LOS: Initial Reviewer: [id number] Initial Review Date: 10/03/2019 Generated: 10/13/19 2:39 pm Comments DCP- Discharge Planning Updated by [id number]: Soraida Crabtree on 10/13/19 12:[address] [facility] has denied admission. I have called Herman Ramos at [facility] and he will be here to hand picker paper work and speak with the patient. CM will continue to follow and assist with discharge planning/needs. DCP- Discharge Planning Updated by [id number]: Soraida Crabtree on 10/13/19 11:[address] I called Oliver with [facility]. 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 She will call me back when she gets confirmation. I spoke with the patient and he is in agreement to [facility] if accepted. CM will continue to follow and assist with discharge planning/needs. DCP- Discharge Planning Updated by [id number]: Soraida Crabtree on 10/12/19 11:[address] I met with patient this morning concerning his ID. He states that his friend did not bring him his documents. He states "I can get a new one from vital records once I have a mailing address for it to be sent to." I spoke with estefanía Dudley for [facility], they will be unable to accept him until he has proper ID. I called his second choice, [facility], and spoke with Oliver and informed her of his current situation and clinical faxed for their review. CM will continue to follow and assist with discharge planning/needs. DCP- Discharge Planning Updated by [id number]: Soraida Crabtree on 10/08/19 11:[address] CM met with patient about his ID forms. He states Silva does not get off work until tonight. I informed him yesterday he told me she would bring it this morning. He states that he will call her at work and see if she can bring it today. I informed him that I was here until 5 and he needed to get it to me today. I informed him he is ready for discharge, but we cannot get him into [facility] without his identification. DCP- Discharge Planning Updated by [id number]: Soraida Crabtree on 10/07/19 12:[address] Met with the patient to see if he has received his ID. He states that he did call his friend, Silva, and she will be bringing his wallet with his ID and certificate after work tomorrow morning. I called estefanía Monique for [facility], they are still considering admission with proper identification. CM will continue to follow and assist with discharge planning/needs. DCP- Discharge Planning Updated by [id number]: Soraida Crabtree on 10/06/19 3:[address] Received a call from Octavia from [facility], she states that the SS# was wrong and the patient's name is Ford Ortiz, not Zeinab. I have emailed correct SS# to registration. He states his friend, Carlos Ruiz, that he lived with has his SS card, ID and Certificate and he can call Carlos's (Silva) at [employer] (where she works at 10PM) [facility] [place] to have her bring them to him. I asked Octavia if [facility] would still consider admission and she states she will let me know in the am. Patient has chosen [facility] as his second choice and I will send referral there tomorrow after his friend brings ID. CM will continue to follow and assist with discharge planning/needs. DCP- Discharge Planning Updated by [id number]: Soraida Crabtree on 10/06/19 11:[address] I spoke with the patient after Dr. Schultz informed me that he was wanting to do chemo and not hospice at this time. I called Maddie with [facility] and informed her. She states "ok, I will let Jose know." I spoke with estefanía Dudley for [facility], and informed her as well. She states they may still be able to accept patient after financials are completed. I provided patient with coat, gloves, and socks from [facility]. CM will continue to assist with discharge planning/needs. DCP- Discharge Planning Updated by [id number]: Soraida Leyda on 10/05/19 12:[address] Jaden from [facility] was here and signed papers with the patient. After Jaden's visit, the patient requested to see me. He states that he is unsure if he still wants hospice and asked for all options. I did tell him that I could continue the referral to 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 I informed him to speak with Dr. Schultz for her advice and then make his decision. CM will continue to follow and assist with discharge planning/needs. DCP- Discharge Planning Updated by [id number]: Soraida Patelsagar on 10/05/19 8:[address] Patient states he has no family. The Ira Smith is his aunt, but he has no contact with her. He states he was living with a friend, Carlos Singer, but cannot live there any more. He declined information on homeless shelters. Referral sent to [facility] for [facility]. CM will continue to follow and assist with discharge planning/needs. DCP- Discharge Planning Updated by [id number]: Soraida Leyda on 10/05/19 8:[address] CM met with patient to discuss discharge plan. I instructed him on going to a LTC longterm with his Medicaid vs LTC longterm for hospice. He states he has decided to do longterm with [facility] at this time. I called [facility] and spoke with Jaden, he states he will come out this afternoon to see the patient. HAKEEM for [facility] signed. I messaged Octavia Fonseca with [facility] and informed her and clinical faxed. CM will continue to follow and assist with discharge planning/needs. DCP- Discharge Planning Updated by [id number]: Soraida Crabtree on 10/04/19 3:[address] Patient is sleeping. I will meet with him in the morning. CM will continue to follow and assist with discharge planning/needs. DCP- Discharge Planning Updated by [email or web address]: Soraida Crabtree on 10/04/19 8:[address] CM went to room to meet with patient and he has asked me to come back this afternoon, states he is tired. I will come back at a later time to discuss housing options/homeless shelters. CM will continue to follow and assist with discharge planning/needs. DCP- Discharge Planning Updated by [id number]: Collette Rowland on 10/03/19 6:[address] Patient Name: ZEINAB ORTIZ Admission Status: ER Accout number: [id number] Admission Date: 09-29-2019 : 1965 Admission Diagnosis:MALIGNANT NEOPLASM OF COLON, UNSPECIFIED Attending: RON PARRY Current LOS: 4 Anticipated DC Date: Planned Disposition: Primary Insurance: MEDICAID [place] PEND[place] Discharge Planning Comments: CM met with patient at bedside after explaining CM role and obtaining verbal consent. CM discussed availability / needs of home health, REHAB , HOSPICE AND medical equipment. PATIENT WOULD LIKE [facility] AT THEIR INPATIENT FACILITY IF POSSIBLE. I HAVE CONTACTED MARQUIS WITH [facility] AND FAXED DOCUMENTS TO THEM. THEY ARE PROCESSING IT AND PLANNING TO SEND THEIR NURSE OUT IN SEVERAL HOURS. I ALSO GAVE PATIENT BROSHURES. CM WILL FOLLOW AND ASSIST NEEDED. Weaving Teacher: Collette Rowland Appended by Collette Rowland on 10/03/2019 19:09 WARPER CREELER: JAMES RN WITH [facility] CAME OUT TO ASSES PATIENT. IT DOESN'T LOOK LIKE HE IS APPROPRIATE FOR THEIR INPATIENT UNIT RIGHT NOW. STATES WE NEED TO WORK ON PLACEMENT FOR HIM AND THEY ARE STARTING THEIR ADMISSION PROCESS. SOME OPTIONS FOR PLACEMENT MAY BE [facility], [facility], [facility] OR [facility]. JAMES STATES PATIENT WANTS TO THINK ON IT OVER NIGHT. HOSPICE WILL SEND AN ACCESS NURSE OUT TOMORROW AND WILL TALK TO US AND THE PATIENT. CM TO FOLLOW AND ASSIST. Coverage Notice Reviewer: [id number] - Soraida Crabtree Notice Issued Date-Time: 10/05/2019 9:27 Notice Type: Patient Choice Letter Notice Delivered To: Patient Relationship to Patient: Self Lye Treater Name: Delivery Method: HAND - Hand Delivered Pastora Days: Prior Verbal Notification: Recipient Understood Notice: Yes Recipient Signature: Yes Med Rec Note Co-signed by Attending: Coverage Notice Comment: HAKEEM for 1)[facility] 2) [facility] Last DP export: 10/13/19 11:40 Patient Name: ZEINAB ORTIZ Page [id number] at 1339 All edits/amendments must be made on the electronic document DICTATION DATE: 10/13/191338 HYDROGRAPHER: RIKI 10/13/19 133 RPT#: [id number] DC DATE: STATUS: ADM IN [facility] [address] [place] [address] END OF REPORT
[2019-10-13 16:23] VITALS: BP 158/92
--- NOTE | 2019-10-13 18:44 | NUR ---
ALERT AND ORIENTED, RESTING IN BED. NO C/O PAIN. NO S/S OF ACUTE DISTRESS NOTED. DENIES ANY NEEDS AT THIS TIME. CALL LIGHT IN REACH. WILL CONTINUE TO MONITOR.
--- NOTE | 2019-10-13 20:08 | NUR ---
A&O X 4. PINO TO ABDOMEN C/D/I, OPEN TO AIR. PT REPORTS PAIN OF 7/10. INFORMED IT IS UNABLE TO BE GIVEN YET. PT REQUESTS MEDICATION TO HELP HIM REST. DENIES FURTHER NEEDS, WILL CONTINUE TO MONITOR.
[2019-10-13 21:12] VITALS: BP 142/88
[2019-10-14 01:47] VITALS: BP 150/90
--- NOTE | 2019-10-14 02:42 | NUR ---
I have reviewed this patient and I concur with the Shift Assessment completed by the Licensed Practical Nurse today this shift.
[2019-10-14 06:22] VITALS: BP 138/89
[2019-10-14 06:29] LABS: BASOPHILS 0.3 % (0-2); EOSINOPHILS 2.4 % (0-7); HEMATOCRIT 30.2 % (42.0-54.0); HEMOGLOBIN 9.3 g/dL (13.5-17.5); IMMATURE GRANULOCYTES 0.7 % (0-5); MCH 24.2 pg (26.0-34.0); MCHC 30.8 g/dL (31.0-37.0); MCV 78.6 fL (80.0-100.0); MEAN PLATELET VOLUME 9.3 fL (7.4-10.4); MONOCYTES 11.9 % (2-11); NEUTROPHILS 72.7 % (40-80); PLATELET COUNT 389 10x3/uL (130-400); RBC 3.84 10x6/uL (4.20-6.10); WBC 7.2 10x3/uL (4.8-10.8)
[2019-10-14 06:45] LABS: CALC OSMOLALITY 269 mosm/kg (275-300); CALCIUM 7.6 mg/dL (8.5-10.1); CARBON DIOXIDE 30.6 mmol/L (21.0-32.0); CHLORIDE - SERUM 101 mmol/L (98-107); CREATININE - SERUM 0.7 mg/dL (0.6-1.3); GLUCOSE 82 mg/dL (74-106); POTASSIUM - SERUM 3.3 mmol/L (3.5-5.1); SODIUM 136 mmol/L (136-145); UREA NITROGEN 9 mg/dL (7-18); eGFR NON AFRICAN AMERICAN > 90 mL/min (90-120)
--- NOTE | 2019-10-14 07:59 | NUR ---
AWAKE AND ALERT. ORIENTED X3. NO C/O AT THIS TIME. LUNGS ARE CLEAR BILATERALLHY, NO COUGH NOTED. SKIN IS INTACT WITHOUT REDNESS EXCEPT INCISION TO MID ABDOMEN WHICH IS CLEAN AND DRY WITH CLIPS INTACT. COLOSTOMY IS PATENT WITH LIGHT BROWN SOFT STOOL. RIGHT PORT IS PATENT WITHOUT REDNESS AT INSETION SITE. DENIES NEEDS.
[2019-10-14 08:42] VITALS: BP 168/103
--- NOTE | 2019-10-14 09:00 | NUR ---
ATE ALL OF BREAKFAST WITHOUT DIFFICUTLY. DENIES NEEDS.
--- NOTE | 2019-10-14 10:59 | MORECARE ---
CASE MANAGEMENT DISCHARGE SUMMARY PATIENT: ZEINAB ORTIZ UNIT: [id number] ADM DATE: 09/29/19 AGE: 54 : 65 SEX: M ROOM/BED: D.2228 AUTHOR: BOB,DOC PHYSICIAN: REFERRING PHYSICIAN: RON PARRY MD DATE OF SERVICE: 10/14/19 Discharge Plan Patient Name: ZEINAB ORTIZ Facility: [facility]:[place] : 1965 Planned Disposition: Hospice Medical Facility Anticipated Discharge Date: Discharge Date: Expected LOS: Initial Reviewer: [email or web address] Initial Review Date: 10/03/2019 Generated: 10/14/19 11:59 am Comments DCP- Discharge Planning Updated by [id number]: Soraida Leyda on 10/14/19 9:[address] Received a call from estefanía Neumann for [facility], they will accept patient today. I notified the patient and Jonny Watts APN. I also have asked wound care nurse to document ostomy size as requested by [facility]. CM will continue to follow and assist with discharge planning/needs. DCP- Discharge Planning Updated by [id number]: Soraida Leyda on 10/13/19 12:[address] [facility] has denied admission. I have called Herman Ramos at [facility] and he will be here to machine operator picker paper work and speak with the patient. CM will continue to follow and assist with discharge planning/needs. DCP- Discharge Planning Updated by [id number]: Soraida Leyda on 10/13/19 11:[address] I called Oliver with [facility]. She states the billing department is reviewing his records to see if they could get him qualified for long term care phlebotomist Medicaid. She will call me back when she gets confirmation. I spoke with the patient and he is in agreement to [facility] if accepted. CM will continue to follow and assist with discharge planning/needs. DCP- Discharge Planning Updated by [id number]: Soraida Leyda on 10/12/19 11:[address] I met with patient this morning concerning his ID. He states that his friend did not bring him his documents. He states "I can get a new one from vital records once I have a mailing address for it to be sent to." I spoke with estefanía Dudley for [facility], they will be unable to accept him until he has proper ID. I called his second choice, [facility], and spoke with Oliver and informed her of his current situation and clinical faxed for their review. CM will continue to follow and assist with discharge planning/needs. DCP- Discharge Planning Updated by [id number]: Soraida Crabtree on 10/08/19 11:[address] CM met with patient about his ID forms. He states Silva does not get off work until tonight. I informed him yesterday he told me she would bring it this morning. He states that he will call her at work and see if she can bring it today. I informed him that I was here until 5 and he needed to get it to me today. I informed him he is ready for discharge, but we cannot get him into [facility] without his identification. DCP- Discharge Planning Updated by [id number]: Soraida Crabtree on 10/07/19 12:[address] Met with the patient to see if he has received his ID. He states that he did call his friend, Silva, and she will be bringing his wallet with his ID and certificate after work tomorrow morning. I called estefanía Monique for [facility], they are still considering admission with proper identification. CM will continue to follow and assist with discharge planning/needs. DCP- Discharge Planning Updated by [id number]: Soraida Crabtree on 10/06/19 3:[address] Received a call from Octavia from [facility], she states that the SS# was wrong and the patient's name is Ford Ortiz, not Zeinab. I have emailed correct SS# to registration. He states his friend, Carlos Ruiz, that he lived with has his SS card, ID and Certificate and he can call Carlos's (Silva) at [facility] (where she works at 10PM) tonight to have her bring them to him. I asked Octavia if [facility] would still consider admission and she states she will let me know in the am. Patient has chosen [facility] as his second choice and I will send referral there tomorrow after his friend brings ID. CM will continue to follow and assist with discharge planning/needs. DCP- Discharge Planning Updated by [id number]: Soraida Leyda on 10/06/19 11:[address] I spoke with the patient after Dr. Schultz informed me that he was wanting to do chemo and not hospice at this time. I called Maddie with [facility] and informed her. She states "ok, I will let Jose know." I spoke with estefanía Dudley for [facility], and informed her as well. She states they may still be able to accept patient after financials are completed. I provided patient with coat, gloves, and socks from [facility]. CM will continue to assist with discharge planning/needs. DCP- Discharge Planning Updated by [id number]: Soraida Leyda on 10/05/19 12:[address] Jaden from [facility] was here and signed papers with the patient. After Jaden's visit, the patient requested to see me. He states that he is unsure if he still wants hospice and asked for all options. I did tell him that I could continue the referral to [facility], they may be able to help him with a long term care phlebotomist bed if he is able to stay for 30 days. I informed him to speak with Dr. Schultz for her advice and then make his decision. CM will continue to follow and assist with discharge planning/needs. DCP- Discharge Planning Updated by [id number]: Soraida Leyda on 10/05/19 8:[address] Patient states he has no family. The Ira Smith is his aunt, but he has no contact with her. He states he was living with a friend, Carlos Singer, but cannot live there any more. He declined information on homeless shelters. Referral sent to [facility] for [facility]. CM will continue to follow and assist with discharge planning/needs. DCP- Discharge Planning Updated by [id number]: Soraida Leyda on 10/05/19 8:[address] CM met with patient to discuss discharge plan. I instructed him on going to a LTC residential with his Medicaid vs LTC residential for hospice. He states he has decided to do residential with [facility] at this time. I called [facility] and spoke with Jaden, he states he will come out this afternoon to see the patient. HAKEEM for [facility] signed. I messaged Octavia Fonseca with [facility] and informed her and clinical faxed. CM will continue to follow and assist with discharge planning/needs. DCP- Discharge Planning Updated by [id number]: Soraida Patelsagar on 10/04/19 3:[address] Patient is sleeping. I will meet with him in the morning. CM will continue to follow and assist with discharge planning/needs. DCP- Discharge Planning Updated by [id number]: Soraida Crabtree on 10/04/19 8:[address] CM went to room to meet with patient and he has asked me to come back this afternoon, states he is tired. I will come back at a later time to discuss housing options/homeless shelters. CM will continue to follow and assist with discharge planning/needs. DCP- Discharge Planning Updated by [id number]: Collette Rowland on 10/03/19 6:[address] Patient Name: ZEINAB ORTIZ Admission Status: ER Accout number: [id number] Admission Date: 09-29-2019 : 1965 Admission Diagnosis:MALIGNANT NEOPLASM OF COLON, UNSPECIFIED Attending: RON PARRY Current LOS: 4 Anticipated DC Date: Planned Disposition: Primary Insurance: MEDICAID [place] PENDING Discharge Planning Comments: CM met with patient at bedside after explaining CM role and obtaining verbal consent. CM discussed availability / needs of home health, REHAB , HOSPICE AND medical equipment. PATIENT WOULD LIKE [facility] AT THEIR INPATIENT FACILITY IF POSSIBLE. I HAVE CONTACTED MARQUIS WITH [facility] AND FAXED DOCUMENTS TO THEM. THEY ARE PROCESSING IT AND PLANNING TO SEND THEIR NURSE OUT IN SEVERAL HOURS. I ALSO GAVE PATIENT BROSHURES. CM WILL FOLLOW AND ASSIST NEEDED. Patternmaker Plaster: Collette Rowland Appended by Collette Rowland on 10/03/2019 19:09 HASH SLINGER: JAMES CASTILLO WITH [facility] CAME OUT TO ASSES PATIENT. IT DOESN'T LOOK LIKE HE IS APPROPRIATE FOR THEIR INPATIENT UNIT RIGHT NOW. STATES WE NEED TO WORK ON PLACEMENT FOR HIM AND THEY ARE STARTING THEIR ADMISSION PROCESS. SOME OPTIONS FOR PLACEMENT MAY BE [facility], [facility], [facility] OR [facility]. JAMES STATES PATIENT WANTS TO THINK ON IT OVER NIGHT. HOSPICE WILL SEND AN ACCESS NURSE OUT TOMORROW AND WILL TALK TO US AND THE PATIENT. CM TO FOLLOW AND ASSIST. Coverage Notice Reviewer: [id number] Richard Soraida Leyda Notice Issued Date-Time: 10/05/2019 9:27 Notice Type: Patient Choice Letter Notice Delivered To: Patient Relationship to Patient: Self Gizzard Puller Name: Delivery Method: HAND - Hand Delivered Pastora Days: Prior Verbal Notification: Recipient Understood Notice: Yes Recipient Signature: Yes Med Rec Note Co-signed by Attending: Coverage Notice Comment: HAKEEM for 1)[facility] 2) [facility] Last DP export: 10/13/19 12:39 Patient Name: ZEINAB ORTIZ Page [id number] at 1059 All edits/amendments must be made on the electronic document DICTATION DATE: 10/14/191058 SHREDDER TENDER PEAT: RIKI 10/14/19 1059 RPT#: [id number] DC DATE: STATUS: ADM IN [facility] [address] [place] [address] END OF REPORT
--- NOTE | 2019-10-14 11:20 | NUR ---
REQUESTED AND GIVEN ONE HYDROCODONE PO FOR C/O ABDOMINAL PAIN LEVEL 10. WILL MONITOR.
--- NOTE | 2019-10-14 11:23 | NUR ---
Stoma located on left abdomen is red and shiny. It measures 1-1/2". Surrounding skin is pinkish/red so after cleansing with warm water and drying, skin prep and stoma powder applied x 2. 2 piece appliance was attached. Pt tolerated well.
--- NOTE | 2019-10-14 11:44 | MORECARE ---
CASE MANAGEMENT DISCHARGE SUMMARY PATIENT: ZEINAB ORTIZ UNIT: [id number] ADM DATE: 09/29/19 AGE: 54 : 65 SEX: M ROOM/BED: D.2228 AUTHOR: BOB,DOC PHYSICIAN: REFERRING PHYSICIAN: RON PARRY MD DATE OF SERVICE: 10/14/19 Discharge Plan Patient Name: ZEINAB ORTIZ Facility: [facility]:[place] : 1965 Planned Disposition: Hospice Medical Facility Anticipated Discharge Date: Discharge Date: Expected LOS: Initial Reviewer: [email or web address] Initial Review Date: 10/03/2019 Generated: 10/14/19 12:44 pm Comments DCP- Discharge Planning Updated by [email or web address]: Soraida Leyda on 10/14/19 9:[address] Received a call from estefanía Neumann for [facility], they will accept patient today. I notified the patient and Jonny Watts APN. I also have asked wound care nurse to document ostomy size as requested by [facility]. CM will continue to follow and assist with discharge planning/needs. DCP- Discharge Planning Updated by [id number]: Soraida Leyda on 10/13/19 12:[address] [facility] has denied admission. I have called Herman Ramos at [facility] and he will be here to pick pack worker paper work and speak with the patient. CM will continue to follow and assist with discharge planning/needs. DCP- Discharge Planning Updated by [id number]: Soraida Leyda on 10/13/19 11:[address] I called Oliver with [facility]. 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 She will call me back when she gets confirmation. I spoke with the patient and he is in agreement to [facility] if accepted. CM will continue to follow and assist with discharge planning/needs. DCP- Discharge Planning Updated by [id number]: Soraida Patelsagar on 10/12/19 11:[address] I met with patient this morning concerning his ID. He states that his friend did not bring him his documents. He states "I can get a new one from vital records once I have a mailing address for it to be sent to." I spoke with estefanía Dudley for [facility], they will be unable to accept him until he has proper ID. I called his second choice, [facility], and spoke with Oliver and informed her of his current situation and clinical faxed for their review. CM will continue to follow and assist with discharge planning/needs. DCP- Discharge Planning Updated by [id number]: Soraida Crabtree on 10/08/19 11:[address] CM met with patient about his ID forms. He states Silva does not get off work until tonight. I informed him yesterday he told me she would bring it this morning. He states that he will call her at work and see if she can bring it today. I informed him that I was here until 5 and he needed to get it to me today. I informed him he is ready for discharge, but we cannot get him into [facility] without his identification. DCP- Discharge Planning Updated by [id number]: Soraida Crabtree on 10/07/19 12:[address] Met with the patient to see if he has received his ID. He states that he did call his friend, Silva, and she will be bringing his wallet with his ID and certificate after work tomorrow morning. I called estefanía Monique for [facility], they are still considering admission with proper identification. CM will continue to follow and assist with discharge planning/needs. DCP- Discharge Planning Updated by [id number]: Soraida Crabtree on 10/06/19 3:[address] Received a call from Octavia from [facility], she states that the SS# was wrong and the patient's name is Ford Ortiz, not Zeinab. I have emailed correct SS# to registration. He states his friend, Carlos Ruiz, that he lived with has his SS card, ID and Certificate and he can call Carlos's (Silva) at [employer] (where she works at 10PM) tonight to have her bring them to him. I asked Octavia if [facility] would still consider admission and she states she will let me know in the am. Patient has chosen [facility] as his second choice and I will send referral there tomorrow after his friend brings ID. CM will continue to follow and assist with discharge planning/needs. DCP- Discharge Planning Updated by [id number]: Soraida Leyda on 10/06/19 11:[address] I spoke with the patient after Dr. Schultz informed me that he was wanting to do chemo and not hospice at this time. I called Maddie with [facility] and informed her. She states "ok, I will let Jose know." I spoke with estefanía Dudley for [facility], and informed her as well. She states they may still be able to accept patient after financials are completed. I provided patient with coat, gloves, and socks from [facility]. CM will continue to assist with discharge planning/needs. DCP- Discharge Planning Updated by [id number]: Soraida Leyda on 10/05/19 12:[address] Jaden from [facility] was here and signed papers with the patient. After Jaden's visit, the patient requested to see me. He states that he is unsure if he still wants hospice and asked for all options. I did tell him that I could continue the referral to [facility], they may be able to help him with a longwall headgate operator bed if he is able to stay for 30 days. I informed him to speak with Dr. Schultz for her advice and then make his decision. CM will continue to follow and assist with discharge planning/needs. DCP- Discharge Planning Updated by [id number]: Soraida Leyda on 10/05/19 8:[address] Patient states he has no family. The Ira Smith is his aunt, but he has no contact with her. He states he was living with a friend, Carlos Singer, but cannot live there any more. He declined information on homeless shelters. Referral sent to [facility] for [facility]. CM will continue to follow and assist with discharge planning/needs. DCP- Discharge Planning Updated by [id number]: Soraida Leyda on 10/05/19 8:[address] CM met with patient to discuss discharge plan. I instructed him on going to a LTC halfway with his Medicaid vs LTC halfway for hospice. He states he has decided to do halfway with [facility] at this time. I called [facility] and spoke with Jaden, he states he will come out this afternoon to see the patient. HAKEEM for [facility] signed. I messaged Octavia Fonseca with [facility] and informed her and clinical faxed. CM will continue to follow and assist with discharge planning/needs. DCP- Discharge Planning Updated by [id number]: Soraida Patelsagar on 10/04/19 3:[address] Patient is sleeping. I will meet with him in the morning. CM will continue to follow and assist with discharge planning/needs. DCP- Discharge Planning Updated by [id number]: Soraida Crabtree on 10/04/19 8:[address] CM went to room to meet with patient and he has asked me to come back this afternoon, states he is tired. I will come back at a later time to discuss housing options/homeless shelters. CM will continue to follow and assist with discharge planning/needs. DCP- Discharge Planning Updated by [id number]: Collette Rowland on 10/03/19 6:[address] Patient Name: ZEINAB ORTIZ Admission Status: ER Accout number: [id number] Admission Date: 09-29-2019 : 1965 Admission Diagnosis:MALIGNANT NEOPLASM OF COLON, UNSPECIFIED Attending: RON PARRY Current LOS: 4 Anticipated DC Date: Planned Disposition: Primary Insurance: MEDICAID [place] PENDING Discharge Planning Comments: CM met with patient at bedside after explaining CM role and obtaining verbal consent. CM discussed availability / needs of home health, REHAB , HOSPICE AND medical equipment. PATIENT WOULD LIKE [facility] AT THEIR INPATIENT FACILITY IF POSSIBLE. I HAVE CONTACTED MARQUIS WITH [facility] AND FAXED DOCUMENTS TO THEM. THEY ARE PROCESSING IT AND PLANNING TO SEND THEIR NURSE OUT IN SEVERAL HOURS. I ALSO GAVE PATIENT BROSHURES. CM WILL FOLLOW AND ASSIST NEEDED. Director Hospice Operations: Collette Rowland Appended by Collette Rowland on 10/03/2019 19:09 WHEEL CLEANER: JAMES CASTILLO WITH [facility] CAME OUT TO ASSES PATIENT. IT DOESN'T LOOK LIKE HE IS APPROPRIATE FOR THEIR INPATIENT UNIT RIGHT NOW. STATES WE NEED TO WORK ON PLACEMENT FOR HIM AND THEY ARE STARTING THEIR ADMISSION PROCESS. SOME OPTIONS FOR PLACEMENT MAY BE [facility], [facility], [facility] OR [facility]. JAMES STATES PATIENT WANTS TO THINK ON IT OVER NIGHT. HOSPICE WILL SEND AN ACCESS NURSE OUT TOMORROW AND WILL TALK TO US AND THE PATIENT. CM TO FOLLOW AND ASSIST. External Providers External Provider: [facility] and [facility] Next Contact Date: Service Request Date: Service Type: Resolution: Reviewer: Comments: Coverage Notice Reviewer: [id number] Richard Soraida Crabtree Notice Issued Date-Time: 10/05/2019 9:27 Notice Type: Patient Choice Letter Notice Delivered To: Patient Relationship to Patient: Self Chart Changer Name: Delivery Method: HAND - Hand Delivered Pastora Days: Prior Verbal Notification: Recipient Understood Notice: Yes Recipient Signature: Yes Med Rec Note Co-signed by Attending: Coverage Notice Comment: HAKEEM for 1)[facility] 2) [facility] Last DP export: 10/14/19 9:59 Patient Name: ZEINAB ORTIZ Page [id number] at 1144 All edits/amendments must be made on the electronic document DICTATION DATE: 10/14/19 1144 BUILD MANAGER: RIKI 10/14/19 1144 RPT#: [id number] DC DATE: STATUS: ADM IN [facility] [address] [place] [address] END OF REPORT
[2019-10-14] MEDS ORDERED: PERCOCET 10-321 EAC1 PO (12:17)
[2019-10-14] MEDS ORDERED: Duragesic TRANSDERM (12:18)
[2019-10-14 13:23] VITALS: BP 163/92
--- NOTE | 2019-10-14 13:28 | MORECARE ---
CASE MANAGEMENT DISCHARGE SUMMARY PATIENT: ZEINAB ORTIZ UNIT: [id number] ADM DATE: 09/29/19 AGE: 54 : 65 SEX: M ROOM/BED: D.2228 AUTHOR: BOBDOC PHYSICIAN: REFERRING PHYSICIAN: RON PARRY MD DATE OF SERVICE: 10/14/19 Discharge Plan Patient Name: ZEINAB ORTIZ Facility: [facility]:[place] : 1965 Planned Disposition: Hospice Medical Facility Anticipated Discharge Date: Discharge Date: Expected LOS: Initial Reviewer: [id number] Initial Review Date: 10/03/2019 Generated: 10/14/19 2:28 pm Comments DCP- Discharge Planning Updated by [id number]: Soraida Crabtree on 10/14/19 12:[address] Patient Name: ZEINAB ORTIZ Encounter No: [id number] : 1965 Primary Insurance: MEDICAID [place] PENDING Anticipated DC Date: Planned Disposition: Hospice Medical Facility External Planned Provider: : DCP follow-up note: Patient in agreement with discharge plan. No changes to plan. 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 [facility] will provide transportation this afternoon. DC clinical faxed to [facility]. Case management will follow and assist as needed. Soraida Crabtree DCP- Discharge Planning Updated by [id number]: Soraida Crabtree on 10/14/19 9:[address] Received a call from estefanía Neumann for [facility], they will accept patient today. I notified the patient and Jonny Watts APN. I also have asked wound care nurse to document ostomy size as requested by [facility]. CM will continue to follow and assist with discharge planning/needs. DCP- Discharge Planning Updated by [id number]: Soraida Crabtree on 10/13/19 12:[address] [facility] has denied admission. I have called Herman Ramos at [facility] and he will be here to pickling solution maker paper work and speak with the patient. CM will continue to follow and assist with discharge planning/needs. DCP- Discharge Planning Updated by [id number]: Soraida Crabtree on 10/13/19 11:[address] I called Oliver with [facility]. She states the billing department is reviewing his records to see if they could get him qualified for terminal press operator Medicaid. She will call me back when she gets confirmation. I spoke with the patient and he is in agreement to [facility] if accepted. CM will continue to follow and assist with discharge planning/needs. DCP- Discharge Planning Updated by [id number]: Soraida Crabtree on 10/12/19 11:[address] I met with patient this morning concerning his ID. He states that his friend did not bring him his documents. He states "I can get a new one from vital records once I have a mailing address for it to be sent to." I spoke with estefanía Dudley for [facility], they will be unable to accept him until he has proper ID. I called his second choice, [facility], and spoke with Oliver and informed her of his current situation and clinical faxed for their review. CM will continue to follow and assist with discharge planning/needs. DCP- Discharge Planning Updated by [id number]: Soraida Crabtree on 10/08/19 11:[address] CM met with patient about his ID forms. He states Silva does not get off work until tonight. I informed him yesterday he told me she would bring it this morning. He states that he will call her at work and see if she can bring it today. I informed him that I was here until 5 and he needed to get it to me today. I informed him he is ready for discharge, but we cannot get him into [facility] without his identification. DCP- Discharge Planning Updated by [id number]: Soraida Crabtree on 10/07/19 12:[address] Met with the patient to see if he has received his ID. He states that he did call his friend, Silva, and she will be bringing his wallet with his ID and certificate after work tomorrow morning. I called estefanía Monique for [facility], they are still considering admission with proper identification. CM will continue to follow and assist with discharge planning/needs. DCP- Discharge Planning Updated by [id number]: Soraida Patelsagar on 10/06/19 3:[address] Received a call from Octavia from [facility], she states that the SS# was wrong and the patient's name is Ford Ortiz, not Zeinab. I have emailed correct SS# to registration. He states his friend, Carlos Ruiz, that he lived with has his SS card, ID and Certificate and he can call Carlos's (Silva) at [employer] [employer] (where she works at 10PM) [facility] to have her bring them to him. I asked Octavia if [facility] would still consider admission and she states she will let me know in the am. Patient has chosen [facility] as his second choice and I will send referral there tomorrow after his friend brings ID. CM will continue to follow and assist with discharge planning/needs. DCP- Discharge Planning Updated by [email or web address]: Soraida Crabtree on 10/06/19 11:[address] I spoke with the patient after Dr. Schultz informed me that he was wanting to do chemo and not hospice at this time. I called Maddie with [facility] and informed her. She states "ok, I will let Jose know." I spoke with estefanía Dudley for [facility], and informed her as well. She states they may still be able to accept patient after financials are completed. I provided patient with coat, gloves, and socks from [facility]. CM will continue to assist with discharge planning/needs. DCP- Discharge Planning Updated by [id number]: Soraida Crabtree on 10/05/19 12:[address] Jaden from [facility] was here and signed papers with the patient. After Jaden's visit, the patient requested to see me. He states that he is unsure if he still wants hospice and asked for all options. I did tell him that I could continue the referral to [facility], they may be able to help him with a mcfp bed if he is able to stay for 30 days. I informed him to speak with Dr. Schultz for her advice and then make his decision. CM will continue to follow and assist with discharge planning/needs. DCP- Discharge Planning Updated by [id number]: Soraida Crabtree on 10/05/19 8:[address] Patient states he has no family. The Ira Smith is his aunt, but he has no contact with her. He states he was living with a friend, Carlos Singer, but cannot live there any more. He declined information on homeless shelters. Referral sent to [facility] for [facility]. CM will continue to follow and assist with discharge planning/needs. DCP- Discharge Planning Updated by [id number]: Soraida Crabtree on 10/05/19 8:[address] CM met with patient to discuss discharge plan. I instructed him on going to a LTC mcc with his Medicaid vs LTC [facility]cc for hospice. He states he has decided to do mcc with [facility] at this time. I called [facility] and spoke with Jaden, he states he will come out this afternoon to see the patient. HAKEEM for [facility] signed. I messaged Octavia Fonseca with [facility] and informed her and clinical faxed. CM will continue to follow and assist with discharge planning/needs. DCP- Discharge Planning Updated by [id number]: Soraida Crabtree on 10/04/19 3:[address] Patient is sleeping. I will meet with him in the morning. CM will continue to follow and assist with discharge planning/needs. DCP- Discharge Planning Updated by [id number]: Soraida Crabtree on 10/04/19 8:[address] CM went to room to meet with patient and he has asked me to come back this afternoon, states he is tired. I will come back at a later time to discuss housing options/homeless shelters. CM will continue to follow and assist with discharge planning/needs. DCP- Discharge Planning Updated by [email or web address]: Collette Rowland on 10/03/19 6:[address] Patient Name: ZEINAB ORTIZ Admission Status: ER Accout number: [id number] Admission Date: 09-29-2019 : 1965 Admission Diagnosis:MALIGNANT NEOPLASM OF COLON, UNSPECIFIED Attending: RON PARRY Current LOS: 4 Anticipated DC Date: Planned Disposition: Primary Insurance: MEDICAID [place] PENDING Discharge Planning Comments: CM met with patient at bedside after explaining CM role and obtaining verbal consent. CM discussed availability / needs of home health, REHAB , HOSPICE AND medical equipment. PATIENT WOULD LIKE [facility] AT THEIR INPATIENT FACILITY IF POSSIBLE. I HAVE CONTACTED MARQUIS WITH [facility] AND FAXED DOCUMENTS TO THEM. THEY ARE PROCESSING IT AND PLANNING TO SEND THEIR NURSE OUT IN SEVERAL HOURS. I ALSO GAVE PATIENT BROSHURES. CM WILL FOLLOW AND ASSIST NEEDED. Cartographic Designer: Collette Rowland Appended by Collette Rowland on 10/03/2019 19:09 JACK SPINNER: JAMES RN WITH [facility] CAME OUT TO ASSES PATIENT. IT DOESN'T LOOK LIKE HE IS APPROPRIATE FOR THEIR INPATIENT UNIT RIGHT NOW. STATES WE NEED TO WORK ON PLACEMENT FOR HIM AND THEY ARE STARTING THEIR ADMISSION PROCESS. SOME OPTIONS FOR PLACEMENT MAY BE [facility], [facility], [facility] OR [facility]. JAMES STATES PATIENT WANTS TO THINK ON IT OVER NIGHT. HOSPICE WILL SEND AN ACCESS NURSE OUT TOMORROW AND WILL TALK TO US AND THE PATIENT. CM TO FOLLOW AND ASSIST. Coverage Notice Reviewer: [id number] Richard Crabtree Notice Issued Date-Time: 10/05/2019 9:27 Notice Type: Patient Choice Letter Notice Delivered To: Patient Relationship to Patient: Self Health Diagnostics Teacher Name: Delivery Method: HAND - Hand Delivered Pastora Days: Prior Verbal Notification: Recipient Understood Notice: Yes Recipient Signature: Yes Med Rec Note Co-signed by Attending: Coverage Notice Comment: HAKEEM for 1)[facility] 2) [facility] Last DP export: 10/14/19 10:44 Patient Name: ZEINAB ORTIZ Page 30140 at 1328 All edits/amendments must be made on the electronic document DICTATION DATE: 10/14/19 1328 ACCOUNTS RECEIVABLE PROCESSOR: RIKI 10/14/19 1328 RPT#: [id number] DC DATE: STATUS: ADM IN [facility] [address] [place] [address] END OF REPORT
--- NOTE | 2019-10-14 14:30 | NUR ---
CLIPS D/C TO [facility]BDOMEN WITHOUT DIFFICULTY.PORT DEACCESSED AFTER HEPARIN PLACED. DENIES NEEDS.
[2019-10-14 16:45] VITALS: BP 155/103
--- NOTE | 2019-10-14 18:49 | NUR ---
REPORT CALLED TO ALAN LEYVA LPN AT [facility]. ALL QUESTIONS ANSWERED. PATIENT DISCHARGED TO [facility] VIA THEIR TRANSPORT. ALL BELONGINGS WITH PATIENT. AMBULATORY.
--- NOTE | 2019-10-15 15:45 | MORECARE ---
CASE MANAGEMENT DISCHARGE SUMMARY PATIENT: ZEINAB ORTIZ UNIT: [id number] ADM DATE: 09/29/19 AGE: 54 : 65 SEX: M ROOM/BED: D.2228 AUTHOR: BOBDOC PHYSICIAN: REFERRING PHYSICIAN: RON PARRY MD DATE OF SERVICE: 10/15/19 Discharge Plan Patient Name: ZEINAB ORTIZ Facility: [facility]:[place] : 1965 Planned Disposition: Hospice Medical Facility Anticipated Discharge Date: Discharge Date: 10/14/2019 Expected LOS: Initial Reviewer: [email or web address] Initial Review Date: 10/03/2019 Generated: 10/15/19 4:45 pm Comments DCP- Discharge Planning Updated by [email or web address]: Soraida Crabtree on 10/14/19 12:[address] Patient Name: ZEINAB ORTIZ Encounter No: [id number] : 1965 Primary Insurance: MEDICAID [place] PENDING Anticipated DC Date: Planned Disposition: Hospice Medical Facility External Planned Provider: : DCP follow-up note: Patient in agreement with discharge plan. No changes to plan. He will be discharged to a customer support assistant (Medicaid) bed. [facility] will provide transportation this afternoon. DC clinical faxed to [facility]. Case management will follow and assist as needed. Soraida Crabtree DCP- Discharge Planning Updated by [id number]: Soraida Crabtree on 10/14/19 9:[address] Received a call from estefanía Neumann for [facility], they will accept patient today. I notified the patient and Jonny Watts APN. I also have asked wound care nurse to document ostomy size as requested by [facility]. CM will continue to follow and assist with discharge planning/needs. DCP- Discharge Planning Updated by [email or web address]: Soraida Crabtree on 10/13/19 12:[address] [facility] has denied admission. I have called Herman Ramos at [facility] and he will be here to picker tender paper work and speak with the patient. CM will continue to follow and assist with discharge planning/needs. DCP- Discharge Planning Updated by [email or web address]: Soraida Crabtree on 10/13/19 11:[address] I called Oliver with [facility]. She states the billing department is reviewing his records to see if they could get him qualified for customer support assistant Medicaid. She will call me back when she gets confirmation. I spoke with the patient and he is in agreement to [facility] if accepted. CM will continue to follow and assist with discharge planning/needs. DCP- Discharge Planning Updated by [id number]: Soraida Crabtree on 10/12/19 11:[address] I met with patient this morning concerning his ID. He states that his friend did not bring him his documents. He states "I can get a new one from vital records once I have a mailing address for it to be sent to." I spoke with estefanía Dudley for [facility], they will be unable to accept him until he has proper ID. I called his second choice, [facility], and spoke with Oliver and informed her of his current situation and clinical faxed for their review. CM will continue to follow and assist with discharge planning/needs. DCP- Discharge Planning Updated by [email or web address]: Soraida Crabtree on 10/08/19 11:[address] CM met with patient about his ID forms. He states Silva does not get off work until tonight. I informed him yesterday he told me she would bring it this morning. He states that he will call her at work and see if she can bring it today. I informed him that I was here until 5 and he needed to get it to me today. I informed him he is ready for discharge, but we cannot get him into [facility] without his identification. DCP- Discharge Planning Updated by [id number]: Soraida Crabtree on 10/07/19 12:[address] Met with the patient to see if he has received his ID. He states that he did call his friend, Silva, and she will be bringing his wallet with his ID and certificate after work tomorrow morning. I called estefanía Monique for [facility], they are still considering admission with proper identification. CM will continue to follow and assist with discharge planning/needs. DCP- Discharge Planning Updated by [id number]: Soraida Patelsagar on 10/06/19 3:[address] Received a call from Octavia from [facility], she states that the SS# was wrong and the patient's name is Ford Ortiz, not Zeinab. I have emailed correct SS# to registration. He states his friend, Carlos Ruiz, that he lived with has his SS card, ID and Certificate and he can call Carlos's (Silva) at [employer] (where she works at 10PM) [facility] to have her bring them to him. I asked Octavia if [facility] would still consider admission and she states she will let me know in the am. Patient has chosen [facility] as his second choice and I will send referral there tomorrow after his friend brings ID. CM will continue to follow and assist with discharge planning/needs. DCP- Discharge Planning Updated by [id number]: Soraida Crabtree on 10/06/19 11:[address] I spoke with the patient after Dr. Schultz informed me that he was wanting to do chemo and not hospice at this time. I called Maddie with [facility] and informed her. She states "ok, I will let Jose know." I spoke with estefanía Dudley for [facility], and informed her as well. She states they may still be able to accept patient after financials are completed. I provided patient with coat, gloves, and socks from [facility]. CM will continue to assist with discharge planning/needs. DCP- Discharge Planning Updated by [email or web address]: Soraida Crabtree on 10/05/19 12:[address] Jaden from [facility] was here and signed papers with the patient. After Jaden's visit, the patient requested to see me. He states that he is unsure if he still wants hospice and asked for all options. I did tell him that I could continue the referral to [facility], they may be able to help him with a prison bed if he is able to stay for 30 days. I informed him to speak with Dr. Schultz for her advice and then make his decision. CM will continue to follow and assist with discharge planning/needs. DCP- Discharge Planning Updated by [email or web address]: Soraida Crabtree on 10/05/19 8:[address] Patient states he has no family. The Ira Smith is his aunt, but he has no contact with her. He states he was living with a friend, Carlos Singer, but cannot live there any more. He declined information on homeless shelters. Referral sent to [facility] for [facility]. CM will continue to follow and assist with discharge planning/needs. DCP- Discharge Planning Updated by [id number]: Soraida Crabtree on 10/05/19 8:[address] CM met with patient to discuss discharge plan. I instructed him on going to a LTC intermediate with his Medicaid vs LT intermediate for hospice. He states he has decided to do intermediate with [facility] at this time. I called [facility] and spoke with Jaden, he states he will come out this afternoon to see the patient. HAKEEM for [facility] signed. I messaged Octavia Fonseca with [facility] and informed her and clinical faxed. CM will continue to follow and assist with discharge planning/needs. DCP- Discharge Planning Updated by [email or web address]: Soraida Crabtree on 10/04/19 3:[address] Patient is sleeping. I will meet with him in the morning. CM will continue to follow and assist with discharge planning/needs. DCP- Discharge Planning Updated by [id number]: Soraida Crabtree on 10/04/19 8:[address] CM went to room to meet with patient and he has asked me to come back this afternoon, states he is tired. I will come back at a later time to discuss housing options/homeless shelters. CM will continue to follow and assist with discharge planning/needs. DCP- Discharge Planning Updated by [id number]: Collette Janett on 10/03/19 6:[address] Patient Name: ZEINAB ORTIZ Admission Status: ER Accout number: [id number] Admission Date: 09-29-2019 : 1965 Admission Diagnosis:MALIGNANT NEOPLASM OF COLON, UNSPECIFIED Attending: RON PARRY Current LOS: 4 Anticipated DC Date: Planned Disposition: Primary Insurance: MEDICAID [place] PEND[place] Discharge Planning Comments: CM met with patient at bedside after explaining CM role and obtaining verbal consent. CM discussed availability / needs of home health, REHAB , HOSPICE AND medical equipment. PATIENT WOULD LIKE [facility] AT THEIR INPATIENT FACILITY IF POSSIBLE. I HAVE CONTACTED MARQUIS WITH [facility] AND FAXED DOCUMENTS TO THEM. THEY ARE PROCESSING IT AND PLANNING TO SEND THEIR NURSE OUT IN SEVERAL HOURS. I ALSO GAVE PATIENT BROSHURES. CM WILL FOLLOW AND ASSIST NEEDED. Wealth Management Manager: Collette Rowland Appended by Collette Rowland on 10/03/2019 19:09 MANAGER MEDICAL: JAMES RN WITH [facility] CAME OUT TO ASSES PATIENT. IT DOESN'T LOOK LIKE HE IS APPROPRIATE FOR THEIR INPATIENT UNIT RIGHT NOW. STATES WE NEED TO WORK ON PLACEMENT FOR HIM AND THEY ARE STARTING THEIR ADMISSION PROCESS. SOME OPTIONS FOR PLACEMENT MAY BE [facility], [facility] OR [facility]. JAMES STATES PATIENT WANTS TO THINK ON IT OVER NIGHT. HOSPICE WILL SEND AN ACCESS NURSE OUT TOMORROW AND WILL TALK TO US AND THE PATIENT. CM TO FOLLOW AND ASSIST. Coverage Notice Reviewer: [id number] Richard Crabtree Notice Issued Date-Time: 10/05/2019 9:27 Notice Type: Patient Choice Letter Notice Delivered To: Patient Relationship to Patient: Self Track Laborer Name: Delivery Method: HAND - Hand Delivered Pastora Days: Prior Verbal Notification: Recipient Understood Notice: Yes Recipient Signature: Yes Med Rec Note Co-signed by Attending: Coverage Notice Comment: HAKEEM for 1)[facility] 2) [facility] Last DP export: 10/14/19 12:28 Patient Name: ZEINAB ORTIZ Page [id number] at 1542 All edits/amendments must be made on the electronic document DICTATION DATE: 10/15/191544 TAIL PULLER: RIKI 10/15/19 1544 RPT#: [id number] DC DATE:10/14/19 STATUS: DIS IN [facility] [address] [place] [address] END OF REPORT
== END 2019-10-14 18:52 | DRG 329 ==
LOC: D.ER 01:14 → D.MS 03:33 → OBSVTIME 03:33 → D.MS 13:00
PROVIDERS: Family Medicine; Internal Medicine Hematology & Oncology; Surgery; ADMIT Internal Medicine Nephrology; ATTEND Internal Medicine Nephrology
PROC: 0DBN8ZX Excision of Sigmoid Colon, Via Natural or Artificial Opening Endoscopic, Diagnostic (ICD-10-PCS; 2019-09-30)
PROC: B516ZZA Fluoroscopy of Right Subclavian Vein, Guidance (ICD-10-PCS; 2019-10-01)
PROC: 0D1N0Z4 Bypass Sigmoid Colon to Cutaneous, Open Approach (ICD-10-PCS; principal; 2019-10-01 08:45)
PROC: 0DBU0ZZ Excision of Omentum, Open Approach (ICD-10-PCS; 2019-10-01 08:45)
PROC: 05H533Z Insertion of Infusion Device into Right Subclavian Vein, Percutaneous Approach (ICD-10-PCS; 2019-10-01 08:45)
DX: C19 Malignant neoplasm of rectosigmoid junction (principal); E43 Unspecified severe protein-calorie malnutrition; C78.7 Secondary malignant neoplasm of liver and intrahepatic bile duct; R18.8 Other ascites; Z68.1 Body mass index [BMI] 19.9 or less, adult; F17.203 Nicotine dependence unspecified, with withdrawal; K56.690 Other partial intestinal obstruction; C80.0 Disseminated malignant neoplasm, unspecified; R63.4 Abnormal weight loss; I10 Essential (primary) hypertension; D50.9 Iron deficiency anemia, unspecified; F15.99 Other stimulant use, unspecified with unspecified stimulant-induced disorder; E83.52 Hypercalcemia; R15.9 Full incontinence of feces

== ENCOUNTER 2019-11-08 09:08 | Inpatient (IN) | payer MEDICAID ==
[~2019-11-08] VITALS: Ht 182.9 cm; Wt 61.2 kg
[~2019-11-08 09:08] MED LIST: Duragesic TRANSDERM; PERCOCET 10-321 EAC1 PO
--- NOTE | 2019-11-08 10:00 | NUR ---
PT ARRIVED FROM SNF. NO SIGNS OF DISTRESS. COMPLAINS OF PAIN. WILL ADDRESS. CALL LIGHT IN REACH. BED LOW POSITION. NO FAMILY AT BEDSIDE
[2019-11-08 10:46] LABS: BASOPHILS 0.4 % (0-2); EOSINOPHILS 2.8 % (0-7); HEMATOCRIT 32.3 % (42.0-54.0); IMMATURE GRANULOCYTES 0.1 % (0-5); LYMPHOCYTES 15.7 % (15-50); MCH 24.3 pg (26.0-34.0); MCV 78.6 fL (80.0-100.0); MEAN PLATELET VOLUME 8.6 fL (7.4-10.4); MONOCYTES 13.4 % (2-11); NEUTROPHILS 67.6 % (40-80); PLATELET COUNT 300 10x3/uL (130-400); RBC 4.11 10x6/uL (4.20-6.10); RDW 17.1 % (11.5-14.5); WBC 6.8 10x3/uL (4.8-10.8)
[2019-11-08 10:56] VITALS: BP 94/66; BMI 18.3
[2019-11-08 11:10] LABS: ALBUMIN 2.7 g/dL (3.4-5.0); ALKALINE PHOSPHATASE 274 U/L (46-116); ALT (SGPT) 30 U/L (10-68); BILIRUBIN - TOTAL 0.42 mg/dL (0.2-1.3); CALC OSMOLALITY 270 mosm/kg (275-300); CARBON DIOXIDE 28.5 mmol/L (21.0-32.0); CHLORIDE - SERUM 100 mmol/L (98-107); CREATININE - SERUM 0.7 mg/dL (0.6-1.3); GLUCOSE 87 mg/dL (74-106); POTASSIUM - SERUM 4.6 mmol/L (3.5-5.1); PROTEIN - SERUM 7.4 g/dL (6.4-8.2); SODIUM 135 mmol/L (136-145); UREA NITROGEN 17 mg/dL (7-18); eGFR NON AFRICAN AMERICAN > 90 mL/min (90-120)
[2019-11-08 13:24] VITALS: BP 106/65
[2019-11-08 14:24] LABS: % SATURATION 8 % (15-55); IRON 19 ug/dl (35-150); TOTAL IRON BIND CAPACITY 221 ug/dl (260-445); UNSAT IRON BIND CAPACITY 202 ug/dl (150-375)
--- NOTE | 2019-11-08 20:00 | NUR ---
A&O X 4. SUPINE IN BED, DENIES PAIN/DISCOMFORT. OSTOMY TO LLQ OF ABDOMEN. PT REPORTS SELF CARE FOR OSTOMY. DENIES NEEDS AT THIS TIME, WILL CONTINUE TO MONITOR.
[2019-11-08 20:50] VITALS: BP 116/53
[2019-11-09] VITALS (13 sets, daily range): BP systolic 91–147; BP diastolic 56–101; Ht 182.9 cm; Wt 61.2 kg
--- NOTE | 2019-11-09 04:17 | NUR ---
I have reviewed this patient and I concur with the Shift Assessment completed by the Licensed Practical Nurse today this shift.
[2019-11-09 06:49] LABS: BASOPHILS 0.6 % (0-2); EOSINOPHILS 4.5 % (0-7); HEMATOCRIT 31.4 % (42.0-54.0); HEMOGLOBIN 9.5 g/dL (13.5-17.5); IMMATURE GRANULOCYTES 0.4 % (0-5); LYMPHOCYTES 14.7 % (15-50); MCH 23.9 pg (26.0-34.0); MCHC 30.3 g/dL (31.0-37.0); MCV 78.9 fL (80.0-100.0); MEAN PLATELET VOLUME 8.9 fL (7.4-10.4); MONOCYTES 13.2 % (2-11); NEUTROPHILS 66.6 % (40-80); PLATELET COUNT 332 10x3/uL (130-400); RBC 3.98 10x6/uL (4.20-6.10); WBC 6.7 10x3/uL (4.8-10.8)
[2019-11-09 07:06] LABS: UDS - AMPHET NEGATIVE QUAL (NEGATIVE); UDS - BARB NEGATIVE QUAL (NEGATIVE); UDS - BENZO NEGATIVE QUAL (NEGATIVE); UDS - COCAINE NEGATIVE QUAL (NEGATIVE); UDS - OPIATE POSITIVE QUAL (NEGATIVE); UDS - PCP NEGATIVE QUAL (NEGATIVE); UDS - THC NEGATIVE QUAL (NEGATIVE)
[2019-11-09 07:12] LABS: ALBUMIN 2.5 g/dL (3.4-5.0); ALKALINE PHOSPHATASE 274 U/L (46-116); ALT (SGPT) 33 U/L (10-68); BILIRUBIN - TOTAL 0.35 mg/dL (0.2-1.3); CALC OSMOLALITY 269 mosm/kg (275-300); CALCIUM 8.9 mg/dL (8.5-10.1); CHLORIDE - SERUM 101 mmol/L (98-107); CREATININE - SERUM 0.7 mg/dL (0.6-1.3); GLUCOSE 88 mg/dL (74-106); PROTEIN - SERUM 7.5 g/dL (6.4-8.2); SODIUM 135 mmol/L (136-145); UREA NITROGEN 16 mg/dL (7-18); eGFR NON AFRICAN AMERICAN > 90 mL/min (90-120)
[2019-11-09 07:13] LABS: POTASSIUM - SERUM 3.9 mmol/L (3.5-5.1)
[2019-11-09 08:23] LABS: APPEARANCE CLEAR (CLEAR); BACTERIA MANY /hpf (NEGATIVE); BILIRUBIN NEGATIVE (NEGATIVE); COLOR YELLOW (YELLOW); EPITHELIAL CELLS 0-5 /hpf (0-5); GLUCOSE NEGATIVE (NEGATIVE); KETONE NEGATIVE (NEGATIVE); NITRITE NEGATIVE (NEGATIVE); PROTEIN NEGATIVE (NEGATIVE); RED CELLS - URINE RARE /hpf (0-5); SPECIFIC GRAVITY 1.015 (1.005-1.020); WHITE CELLS - URINE 0-5 /hpf (NEGATIVE)
--- NOTE | 2019-11-09 12:09 | NUR ---
CHEMO OF OXYLAPLATIN AND LEUCOVOIN STARTED IN SEPERATE CHANNELS ON IV POLE TO LEFT INFUASAPORT X 2 ACCESS PORTS AFTER EXCELLENT BLOOD RETURN NOTED AND INFUAPORT FLUSHED WITH 10 CC D5W. VS 123/79 P 63 R 18. YELLOW CHEMO BUCKET IN ROOM AND SIGNS X 2 FOR DOUBLE GLOVE/DOUBLE FLUSH HUNG IN ROOM FOR PATIENT CARE STAFF TO FOLLOW. PT HAS NO COMPLAINTS OF NAUSEA AT THIS TIME. WILL CONTINUE TO MONITOR.
--- NOTE | 2019-11-09 12:25 | NUR ---
BLOOD RETURNED FROM INFUSAPORT AND FLUSHED WITH D5W. VS STABLE. NO CONCERNS VOICED FROM PATIENT. CONTINUE TO MONITOR
--- NOTE | 2019-11-09 14:24 | NUR ---
5FU HUNG ORDERED TO RIGHT INFUSAPORT AFTER EXCELLENT BLOOD RETURN NOTED. VS 138/87 P 55 R 18. NO COMPLAINTS OF NAUSEA NOTED. YELLOW CHEMO BUCKET IN ROOM. CONTINUE TO MONITOR
--- NOTE | 2019-11-09 14:58 | NUR ---
5fu continuous drip started at 46 cc/hr as ordered. vs stable at 138/87 p 65 r 18 yellow chemo box in room. no complaints of nausea continue to monitor
--- NOTE | 2019-11-09 15:12 | NUR ---
BLOOD RETURN NOTED. VS STABLE.
--- NOTE | 2019-11-09 20:30 | NUR ---
ASSESSMENT PER FLOWSHEET. IV PATENT RT INFUSAPORT WITH FLUOROURACIL (CHEMO MED) INFUSING AT 46CC'S/HR. NS AT 50CC'S/HR. MONITORING VS AND BLOOD RETURN. GOOD BLOOD RETURN NOTED. PT C/O PAIN PERCOCET 10MG TAB ONE PO GIVEN FOR PAIN CONTROL.
--- NOTE | 2019-11-09 22:00 | NUR ---
GOOD BLOOD RETURN NOTED. VP=321/72 HR-70. DENIES NEEDS.
--- NOTE | 2019-11-10 | NUR ---
GOOD BLOOD RETURN NOTED. B/P=148/97 HR=64. EYES CLOSED RESPIRATINS WITH EASE AND UNLABORED. DENIES NEEDS.
[2019-11-10 01:00] VITALS: BP 118/63
--- NOTE | 2019-11-10 02:15 | NUR ---
GOOD BLOOD RETURN NOTED. B/P=131/90 HR 66. DENIES NEEDS.
[2019-11-10 04:47] VITALS: BP 145/74
--- NOTE | 2019-11-10 07:25 | NUR ---
PT IS RESTING IN BED WITH EYES OPEN. RESPIRAITONS ARE EVEN AND UNLABORED. PT DENIES PRESENCE OF PAIN/N/V. CHEMO INFUSING WITHOUT DIFFICULTY PER ORDER TO RIGHT CHEST PORT. BED IS IN THE LOWEST POSITION. CALL LIGHT AND BEDSIDE TABLE ARE WITHIN REACH. SIDE RAILS X 2. PT DENIES FURTHER NEEDS. WILL CONT TO MONITOR.
[2019-11-10 07:45] LABS: BASOPHILS 0.1 % (0-2); EOSINOPHILS 0.2 % (0-7); HEMATOCRIT 34.8 % (42.0-54.0); IMMATURE GRANULOCYTES 0.3 % (0-5); LYMPHOCYTES 9.2 % (15-50); MCH 24.9 pg (26.0-34.0); MCHC 31.6 g/dL (31.0-37.0); MCV 78.9 fL (80.0-100.0); MEAN PLATELET VOLUME 8.8 fL (7.4-10.4); NEUTROPHILS 81.2 % (40-80); PLATELET COUNT 335 10x3/uL (130-400); RBC 4.41 10x6/uL (4.20-6.10); RDW 16.8 % (11.5-14.5)
[2019-11-10 07:47] LABS: WBC 11.6 10x3/uL (4.8-10.8)
[2019-11-10 07:51] LABS: ALBUMIN 2.7 g/dL (3.4-5.0); ALKALINE PHOSPHATASE 289 U/L (46-116); ALT (SGPT) 31 U/L (10-68); BILIRUBIN - TOTAL 0.23 mg/dL (0.2-1.3); CALC OSMOLALITY 277 mosm/kg (275-300); CALCIUM 9.1 mg/dL (8.5-10.1); CARBON DIOXIDE 27.5 mmol/L (21.0-32.0); CHLORIDE - SERUM 100 mmol/L (98-107); GLUCOSE 115 mg/dL (74-106); POTASSIUM - SERUM 4.3 mmol/L (3.5-5.1); PROTEIN - SERUM 8.4 g/dL (6.4-8.2); SODIUM 137 mmol/L (136-145); UREA NITROGEN 20 mg/dL (7-18)
[2019-11-10 07:53] LABS: CREATININE - SERUM 0.9 mg/dL (0.6-1.3); eGFR NON AFRICAN AMERICAN > 90 mL/min (90-120)
--- NOTE | 2019-11-10 08:15 | MORECARE ---
CASE MANAGEMENT DISCHARGE SUMMARY PATIENT: ZEINAB ORTIZ UNIT: [id number] ADM DATE: 11/08/19 AGE: 54 : 65 SEX: M ROOM/BED: D.2235 AUTHOR: JULIA ROJAS PHYSICIAN: REFERRING PHYSICIAN: TREVOR LEDBETTER MD DATE OF SERVICE: 11/10/19 Discharge Plan Patient Name: ZEINAB ORTIZ Facility: [facility]:[place] : 1965 Planned Disposition: Nursing Facility RDAHA Cert Anticipated Discharge Date: Discharge Date: Expected LOS: Initial Reviewer: [email or web address] Initial Review Date: 11/10/2019 Generated: 11/10/19 9:14 am DCPIA - Discharge Planning Initial Assessment Updated by [email or web address]: Soraida Crabtree on 11/10/19 8:13 am * Is the patient Alert and Oriented? Yes * How many steps to enter\exit or inside your home? 0/0 * PCP Dr. Cerda at [facility] * Pharmacy Medications provided by [facility] * Preadmission Environment Property Supervisor Alf * Facility Name [facility] * ADLs Independent * Equipment None * List name and contact numbers for known caregivers / representatives who currently or will assist patient after discharge: None * Verbal permission to speak to the caregivers and representatives has been obtained from the patient. N/A * Community resources currently utilized None * Additional services required to return to the preadmission environment? No * Can the patient safely return to the preadmission environment? Yes * Has this patient been hospitalized within the prior 30 days at any hospital? Yes Patient Name: ZEINAB ORTIZ Page [id number] at 0815 All edits/amendments must be made on the electronic document DICTATION DATE: 11/10/19813 TOOL SETTER APPRENTICE: RIKI 11/10/19813 RPT#: [id number] DC DATE: STATUS: ADM IN [facility] [address] [place] [address] END OF REPORT
--- NOTE | 2019-11-10 08:21 | MORECARE ---
CASE MANAGEMENT DISCHARGE SUMMARY PATIENT: ZEINAB ORTIZ UNIT: [id number] ADM DATE: 11/08/19 AGE: 54 : 65 SEX: M ROOM/BED: D.2235 AUTHOR: BOB,DOC PHYSICIAN: REFERRING PHYSICIAN: CHELSEY LEDBETTER MD DATE OF SERVICE: 11/10/19 Discharge Plan Patient Name: ZEINAB ORTIZ Facility: [facility]:[place] : 1965 Planned Disposition: Nursing Facility RADHA Cert Anticipated Discharge Date: Discharge Date: Expected LOS: Initial Reviewer: [email or web address] Initial Review Date: 11/10/2019 Generated: 11/10/19 9:21 am Comments DCP- Discharge Planning Updated by [email or web address]: Soraida Crabtree on 11/10/19 7:[address] Patient Name: ZEINAB ORTIZ Admission Status: Elective Accout number: [id number] Admission Date: 11-08-2019 : 1965 Admission Diagnosis: Attending: Chelsey Ledbetter Current LOS: 2 Anticipated DC Date: Planned Disposition: Nursing Facility RADHA Cert Primary Insurance: MEDICAID [place] Discharge Planning Comments: CM met with patient to complete initial dc planning assessment. CM educated patient on the CM role and verbal consent given by patient to complete assessment. Patient lives at [facility] and plans to return to a halfway bed. CM discussed availability of home health, rehab services, and medical equipment. Patient denied known discharge needs at this time. I have called [facility] and left a message to confirm that they are accepting him back at discharge. CM will continue to follow and will assist as needed with dc plans/needs. Automation Qtp Tester: Soraida Crabtree DCPIA - Discharge Planning Initial Assessment Updated by [email or web address]: Soraida Crabtree on 11/10/19 8:13 am * Is the patient Alert and Oriented? Yes * How many steps to enter\exit or inside your home? 0/0 * PCP Dr. Cerda at [facility] * Pharmacy Medications provided by [facility] * Preadmission Environment C Programmer Fpc * Facility Name [facility] * ADLs Independent * Equipment None * List name and contact numbers for known caregivers / representatives who currently or will assist patient after discharge: None * Verbal permission to speak to the caregivers and representatives has been obtained from the patient. N/A * Community resources currently utilized None * Additional services required to return to the preadmission environment? No * Can the patient safely return to the preadmission environment? Yes * Has this patient been hospitalized within the prior 30 days at any hospital? Yes Coverage Notice Reviewer: [id number] Richard Crabtree Notice Issued Date-Time: 11/09/2019 15:30 Notice Type: Patient Choice Letter Notice Delivered To: Patient Relationship to Patient: Self Operations Support Coordinator Name: Delivery Method: HAND - Hand Delivered Pastora Days: Prior Verbal Notification: Recipient Understood Notice: Yes Recipient Signature: Yes Med Rec Note Co-signed by Attending: Coverage Notice Comment: HAKEEM for [facility] DP export: 11/10/19 7:15 Patient Name: ZEINAB ORTIZ Page 08959 at 0821 All edits/amendments must be made on the electronic document DICTATION DATE: 11/10/19820 BRAND MARKETING COORDINATOR: RIKI 11/10/19820 RPT#: [id number] DC DATE: STATUS: ADM IN [facility] [address] [place] [address] END OF REPORT
[2019-11-10 09:02] VITALS: BP 146/88
[2019-11-10 12:55] VITALS: BP 152/95
--- NOTE | 2019-11-10 15:33 | NUR ---
LECOVORIN FINISHED. 5FU CONTINUOUS DRIP AT 46CC/HR HUNG ORDERED. TO RIGHT PORT. EXCELLENT BLOOD RETURN NOTED. CONTINUE TO MONITOR
[2019-11-10 16:38] VITALS: BP 130/84
[2019-11-10 20:35] VITALS: BP 113/56
--- NOTE | 2019-11-10 23:29 | NUR ---
CHECK FOR BLOOD RETRUN EVERY 2 HOURS , ABDULAZIZ GOOD BLOOD RETRUNAT THIS TIME.
--- NOTE | 2019-11-11 01:01 | NUR ---
RESTING IN BED WITH N O NEEDS AT THIS TIME IV IN PLACE TO RIGHT CHEST IMPLANTED PORT. fLUOROURECIL IN PLACE AT 46ML/HR. NO REACTION NOTED AT THIS TIME. OSTOMY IN PLACE LEFT SIDE NO STOOL IN BAG AT THIS TIME. WATER AND CALL LIGHT IN REACH, UP AT [facility] UP FOR SANDWICH AND CHIPS TONIGHT.
[2019-11-11 01:26] VITALS: BP 133/80
[2019-11-11 05:20] VITALS: BP 125/74
--- NOTE | 2019-11-11 07:29 | NUR ---
PT IS RESTING IN BED WITH EYES OPEN. RESPIRATIONS ARE EVEN AND UNLABORED. PT IS AAO X 4. PT DENIES PRESENCE OF PAIN/N/V AT THIS TIME. CHEMO INFUSING PER ORDER WITHOUT DIFFICULTY TO RIGHT CHEST PORT. BED IS IN THE LOWEST POSITION. CALL LIGHT AND BEDSIDE TABLE ARE WITHIN REACH. SIDE RAILS X 2. PT DENIES FURTHER NEEDS. WILL CONT TO MONITOR.
[2019-11-11 07:33] LABS: BASOPHILS 0 % (0-2); EOSINOPHILS 0 % (0-7); HEMATOCRIT 32.1 % (42.0-54.0); IMMATURE GRANULOCYTES 0.2 % (0-5); LYMPHOCYTES 8.5 % (15-50); MCH 24.5 pg (26.0-34.0); MCHC 31.2 g/dL (31.0-37.0); MCV 78.7 fL (80.0-100.0); MEAN PLATELET VOLUME 8.8 fL (7.4-10.4); MONOCYTES 8.6 % (2-11); NEUTROPHILS 82.7 % (40-80); PLATELET COUNT 330 10x3/uL (130-400); RBC 4.08 10x6/uL (4.20-6.10); WBC 10.1 10x3/uL (4.8-10.8)
[2019-11-11 07:51] LABS: ALBUMIN 2.5 g/dL (3.4-5.0); ALKALINE PHOSPHATASE 263 U/L (46-116); ALT (SGPT) 35 U/L (10-68); BILIRUBIN - TOTAL 0.23 mg/dL (0.2-1.3); CALC OSMOLALITY 277 mosm/kg (275-300); CALCIUM 8.6 mg/dL (8.5-10.1); CARBON DIOXIDE 26.4 mmol/L (21.0-32.0); CHLORIDE - SERUM 104 mmol/L (98-107); CREATININE - SERUM 0.9 mg/dL (0.6-1.3); GLUCOSE 105 mg/dL (74-106); POTASSIUM - SERUM 4.4 mmol/L (3.5-5.1); PROTEIN - SERUM 7.3 g/dL (6.4-8.2); SODIUM 137 mmol/L (136-145); UREA NITROGEN 24 mg/dL (7-18); eGFR NON AFRICAN AMERICAN > 90 mL/min (90-120)
[2019-11-11 10:53] VITALS: BP 144/83
[2019-11-11 12:45] VITALS: BP 117/75
--- NOTE | 2019-11-11 13:39 | MORECARE ---
CASE MANAGEMENT DISCHARGE SUMMARY PATIENT: ZEINAB ORTIZ UNIT: [id number] ADM DATE: 11/08/19 AGE: 54 : 65 SEX: M ROOM/BED: D.2235 AUTHOR: BOBDOC PHYSICIAN: REFERRING PHYSICIAN: CHELSEY LEDBETTER MD DATE OF SERVICE: 11/11/19 Discharge Plan Patient Name: ZEINAB ORTIZ Facility: [facility]:[place] : 1965 Planned Disposition: Nursing Facility RADHA Cert Anticipated Discharge Date: Discharge Date: Expected LOS: Initial Reviewer: [email or web address] Initial Review Date: 11/10/2019 Generated: 11/11/19 2:38 pm Comments DCP- Discharge Planning Updated by [email or web address]: Soraida Crabtree on 11/11/19 12:[address] Patient Name: ZEINAB ORTIZ Encounter No: [id number] : 1965 Primary Insurance: MEDICAID [place] Anticipated DC Date: Planned Disposition: Nursing Facility RADHA Cert External Planned Provider: : DCP follow-up note: Patient in agreement with discharge plan. No changes to plan. I called Herman Ramos with [facility] and they will pick him up at 4PM. He will discharge to a LTC (Medicaid) bed. internet marketing coordinator informed. Case management will follow and assist as needed. Soraida Crabtree DCP- Discharge Planning Updated by [email or web address]: Soraida Crabtree on 11/10/19 7:[address] Patient Name: ZEINAB ORTIZ Admission Status: Elective Accout number: [id number] Admission Date: 11-08-2019 : 1965 Admission Diagnosis: Attending: Chelsey Ledbetter Current LOS: 2 Anticipated DC Date: Planned Disposition: Nursing Facility RADHA Cert Primary Insurance: MEDICAID [place] Discharge Planning Comments: CM met with patient to complete initial dc planning assessment. CM educated patient on the CM role and verbal consent given by patient to complete assessment. Patient lives at [facility] and plans to return to a superintendent terminal bed. CM discussed availability of home health, rehab services, and medical equipment. Patient denied known discharge needs at this time. I have called [facility] and left a message to confirm that they are accepting him back at discharge. CM will continue to follow and will assist as needed with dc plans/needs. Patient Insurance Clerk: Soraida Crabtree DCPIA - Discharge Planning Initial Assessment Updated by [email or web address]: Soraida Crabtree on 11/10/19 8:13 am * Is the patient Alert and Oriented? Yes * How many steps to enter\exit or inside your home? 0/0 * PCP Dr. Cerda at [facility] * Pharmacy Medications provided by [facility] * Preadmission Environment [facility] * Facility Name [facility] * ADLs Independent * Equipment None * List name and contact numbers for known caregivers / representatives who currently or will assist patient after discharge: None * Verbal permission to speak to the caregivers and representatives has been obtained from the patient. N/A * Community resources currently utilized None * Additional services required to return to the preadmission environment? No * Can the patient safely return to the preadmission environment? Yes * Has this patient been hospitalized within the prior 30 days at any hospital? Yes Coverage Notice Reviewer: [email or web address] - Soraida Crabtree Notice Issued Date-Time: 11/09/2019 15:30 Notice Type: Patient Choice Letter Notice Delivered To: Patient Relationship to Patient: Self Vocational Nurse Lvn Name: Delivery Method: HAND - Hand Delivered Pastora Days: Prior Verbal Notification: Recipient Understood Notice: Yes Recipient Signature: Yes Med Rec Note Co-signed by Attending: Coverage Notice Comment: HAKEEM for [facility] Last DP export: 11/10/19 7:21 Patient Name: ZEINAB ORTIZ Page 97775 at 1339 All edits/amendments must be made on the electronic document DICTATION DATE: 11/11/191337 SENIOR WATER RESOURCES ENGINEER: RIKI 11/11/198 RPT#: [id number] DC DATE: STATUS: ADM IN [facility] [address] [place] [address] END OF REPORT
--- NOTE | 2019-11-11 13:53 | MORECARE ---
CASE MANAGEMENT DISCHARGE SUMMARY PATIENT: ZEINAB ORTIZ UNIT: [id number] ADM DATE: 11/08/19 AGE: 54 : 65 SEX: M ROOM/BED: D.2235 AUTHOR: BOBDOC PHYSICIAN: REFERRING PHYSICIAN: CHELSEY LEDBETTER MD DATE OF SERVICE: 11/11/19 Discharge Plan Patient Name: ZEINAB ORTIZ Facility: [facility]:[place] : 1965 Planned Disposition: Nursing Facility RADHA Cert Anticipated Discharge Date: Discharge Date: Expected LOS: Initial Reviewer: [email or web address] Initial Review Date: 11/10/2019 Generated: 11/11/19 2:53 pm Comments DCP- Discharge Planning Updated by [email or web address]: Soraida Crabtree on 11/11/19 12:[address] Patient Name: ZEINAB ORTIZ Encounter No: [id number] : 1965 Primary Insurance: MEDICAID [place] Anticipated DC Date: Planned Disposition: Nursing Facility RADHA Cert External Planned Provider: : DCP follow-up note: Patient in agreement with discharge plan. No changes to plan. I called Herman Ramos with [facility] and they will pick him up at 4PM. He will discharge to a LTC (Medicaid) bed. research program coordinator informed. Case management will follow and assist as needed. Soraida Crabtree DCP- Discharge Planning Updated by [email or web address]: Soraida Crabtree on 11/10/19 7:[address] Patient Name: ZEINAB ORTIZ Admission Status: Elective Accout number: [id number] Admission Date: 11-08-2019 : 1965 Admission Diagnosis: Attending: Chelsey Ledbetter Current LOS: 2 Anticipated DC Date: Planned Disposition: Nursing Facility RADHA Cert Primary Insurance: MEDICAID [place] Discharge Planning Comments: CM met with patient to complete initial dc planning assessment. CM educated patient on the CM role and verbal consent given by patient to complete assessment. Patient lives at [facility] and plans to return to a middle or intermediate school principal bed. CM discussed availability of home health, rehab services, and medical equipment. Patient denied known discharge needs at this time. I have called Herman and left a message to confirm that they are accepting him back at discharge. CM will continue to follow and will assist as needed with dc plans/needs. Pharmacy General Manager: Soraida Leyda DCPIA - Discharge Planning Initial Assessment Updated by [email or web address]: Soraida Crabtree on 11/10/19 8:13 am * Is the patient Alert and Oriented? Yes * How many steps to enter\exit or inside your home? 0/0 * PCP Dr. Cerda at [facility] * Pharmacy Medications provided by [facility] * Preadmission Environment Prison Custodial * Facility Name [facility] * ADLs Independent * Equipment None * List name and contact numbers for known caregivers / representatives who currently or will assist patient after discharge: None * Verbal permission to speak to the caregivers and representatives has been obtained from the patient. N/A * Community resources currently utilized None * Additional services required to return to the preadmission environment? No * Can the patient safely return to the preadmission environment? Yes * Has this patient been hospitalized within the prior 30 days at any hospital? Yes External Providers External Provider: [facility] Next Contact Date: Service Request Date: Service Type: Resolution: Reviewer: Comments: Coverage Notice Reviewer: [id number] - Soraida Orrasgar Notice Issued Date-Time: 11/09/2019 15:30 Notice Type: Patient Choice Letter Notice Delivered To: Patient Relationship to Patient: Self Kayaking Instructor Name: Delivery Method: HAND - Hand Delivered Pastora Days: Prior Verbal Notification: Recipient Understood Notice: Yes Recipient Signature: Yes Med Rec Note Co-signed by Attending: Coverage Notice Comment: HAKEEM for [facility] Last DP export: 11/11/19 12:39 Patient Name: ZEINAB ORTIZ Page 62035 at 1353 All edits/amendments must be made on the electronic document DICTATION DATE: 11/11/19 1353 WEDGER MACHINE: RIKI 11/11/19 1353 RPT#: [id number] DC DATE: STATUS: ADM IN [facility] [address] [place] [address] END OF REPORT
--- NOTE | 2019-11-11 14:00 | NUR ---
REPORT CALLED TO RAYNE GREENBERG AT [facility]. NO FURTHER QUESTIONS.
--- NOTE | 2019-11-11 14:45 | NUR ---
CHEMO INFUSING TO PORT WITHOUT DIFFICULTY. ALL DISCHARGE INSTRUCTIONS COVERED WITH PT. PT DENIES ANY QUESTIONS/CONCERNS/NEEDS. ALL DISCHARGE PAPERS SIGNED. BED IS IN THE LOWEST POSITION. CALL LIGHT AND BEDSIDE TABLE ARE WITHIN REACH. SIDE RAILS X 2. PT DENIES FURTHER NEEDS. WILL CONT TO MONITOR.
--- NOTE | 2019-11-11 17:00 | NUR ---
PT TRANSPORTED OUT OF ROOM VIA WHEELCHAIR. PT DENIES FURTHER NEEDS/QUESTIONS/CONCERNS AT THIS TIME.
--- NOTE | 2019-11-12 14:25 | MORECARE ---
CASE MANAGEMENT DISCHARGE SUMMARY PATIENT: ZEINAB ORTIZ UNIT: [id number] ADM DATE: 11/08/19 AGE: 54 : 65 SEX: M ROOM/BED: D.2235 AUTHOR: BOB,DOC PHYSICIAN: REFERRING PHYSICIAN: CHELSEY LEDBETTER MD DATE OF SERVICE: 11/12/19 Discharge Plan Patient Name: ZEINAB ORTIZ Facility: [facility]:[place] : 1965 Planned Disposition: Nursing Facility RADHA Cert Anticipated Discharge Date: Discharge Date: 11/11/2019 Expected LOS: 0 Initial Reviewer: [email or web address] Initial Review Date: 11/10/2019 Generated: 11/12/19 3:24 pm Comments DCP- Discharge Planning Updated by [email or web address]: Soraida Crabtree on 11/11/19 12:[address] Patient Name: ZEINAB ORTIZ Encounter No: [id number] : 1965 Primary Insurance: MEDICAID [place] Anticipated DC Date: Planned Disposition: Nursing Facility RADHA Cert External Planned Provider: : DCP follow-up note: Patient in agreement with discharge plan. No changes to plan. I called Herman Ramos with [facility] and they will pick him up at 4PM. He will discharge to a LTC (Medicaid) bed. family services coordinator informed. Case management will follow and assist as needed. Soraida Crabtree DCP- Discharge Planning Updated by [email or web address]: Soraida Crabtree on 11/10/19 7:[address] Patient Name: ZEINAB ORTIZ Admission Status: Elective Accout number: [id number] Admission Date: 11-08-2019 : 1965 Admission Diagnosis: Attending: Chelsey Ledbetter Current LOS: 2 Anticipated DC Date: Planned Disposition: Nursing Facility RADHA Cert Primary Insurance: MEDICAID [place] Discharge Planning Comments: CM met with patient to complete initial dc planning assessment. CM educated patient on the CM role and verbal consent given by patient to complete assessment. 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 CM discussed availability of home health, rehab services, and medical equipment. Patient denied known discharge needs at this time. I have called Herman and left a message to confirm that they are accepting him back at discharge. CM will continue to follow and will assist as needed with dc plans/needs. Family Consumer Science Fcs Teacher: Soraida Crabtree DCPIA - Discharge Planning Initial Assessment Updated by [id number]: Soraida Crabtree on 11/10/19 8:13 am * Is the patient Alert and Oriented? Yes * How many steps to enter\exit or inside your home? 0/0 * PCP Dr. Cerda at [facility] * Pharmacy Medications provided by [facility] * Preadmission Environment Senior Paralegal Fci * Facility Name [facility] * ADLs Independent * Equipment None * List name and contact numbers for known caregivers / representatives who currently or will assist patient after discharge: None * Verbal permission to speak to the caregivers and representatives has been obtained from the patient. N/A * Community resources currently utilized None * Additional services required to return to the preadmission environment? No * Can the patient safely return to the preadmission environment? Yes * Has this patient been hospitalized within the prior 30 days at any hospital? Yes Coverage Notice Reviewer: [id number] - Soraida Crabtree Notice Issued Date-Time: 11/09/2019 15:30 Notice Type: Patient Choice Letter Notice Delivered To: Patient Relationship to Patient: Self Police Stenographer Name: Delivery Method: HAND - Hand Delivered Pastora Days: Prior Verbal Notification: Recipient Understood Notice: Yes Recipient Signature: Yes Med Rec Note Co-signed by Attending: Coverage Notice Comment: HAKEEM for [facility] Last DP export: 11/11/19 12:54 Patient Name: ZEINAB ORTIZ Page 91255 at 1425 All edits/amendments must be made on the electronic document DICTATION DATE: 11/12/191423 AGER OPERATOR: RIKI 11/12/191423 RPT#: [id number] DC DATE:11/11/19 STATUS: DIS IN [facility] [address] [place] [address] END OF REPORT
== END 2019-11-11 17:01 | disposition home or self-care (01) | DRG 846 ==
LOC: D.MS 09:08
PROVIDERS: Internal Medicine Nephrology; ADMIT Internal Medicine Hematology & Oncology; ATTEND Internal Medicine Hematology & Oncology
DX: Z51.11 Encounter for antineoplastic chemotherapy (principal); E43 Unspecified severe protein-calorie malnutrition; C18.9 Malignant neoplasm of colon, unspecified; C78.7 Secondary malignant neoplasm of liver and intrahepatic bile duct; E87.1 Hypo-osmolality and hyponatremia; N39.0 Urinary tract infection, site not specified; Z68.1 Body mass index [BMI] 19.9 or less, adult; I95.9 Hypotension, unspecified; D63.8 Anemia in other chronic diseases classified elsewhere; R63.4 Abnormal weight loss

== ENCOUNTER 2019-11-23 08:38 | Inpatient (IN) | payer MEDICAID ==
[~2019-11-23] VITALS: Ht 182.9 cm; Wt 59.1 kg
--- NOTE | 2019-11-23 09:00 | NUR ---
RIGHT CHEST PORT ACCESSED. STERILE TECHNIQUE MAINTAINED. CL IN REACH. WCTM
--- NOTE | 2019-11-23 09:10 | NUR ---
CALLED DR LEDBETTER FOR PERMISSION TO ACCESS PORT. PERMISSION GRANTED
[2019-11-23] MEDS ORDERED: HYDROCHLOROTH12.5 M1 PO (09:33)
[2019-11-23] MEDS ORDERED: SYNTHROID25 MCG PO (09:33)
[2019-11-23] MEDS ORDERED: ATIVAN0.5 MG PO (09:34)
[2019-11-23 09:38] LABS: BASOPHILS 0.2 % (0-2); EOSINOPHILS 3.8 % (0-7); HEMATOCRIT 34.1 % (42.0-54.0); HEMOGLOBIN 10.5 g/dL (13.5-17.5); IMMATURE GRANULOCYTES 0.2 % (0-5); LYMPHOCYTES 13.7 % (15-50); MCH 24.5 pg (26.0-34.0); MCHC 30.8 g/dL (31.0-37.0); MCV 79.7 fL (80.0-100.0); MEAN PLATELET VOLUME 8.9 fL (7.4-10.4); MONOCYTES 11.1 % (2-11); PLATELET COUNT 266 10x3/uL (130-400); RBC 4.28 10x6/uL (4.20-6.10); RDW 17.7 % (11.5-14.5); WBC 8.1 10x3/uL (4.8-10.8)
[2019-11-23 09:50] LABS: ALBUMIN 2.8 g/dL (3.4-5.0); ALKALINE PHOSPHATASE 338 U/L (46-116); ALT (SGPT) 40 U/L (10-68); BILIRUBIN - TOTAL 0.27 mg/dL (0.2-1.3); CALC OSMOLALITY 275 mosm/kg (275-300); CALCIUM 9.2 mg/dL (8.5-10.1); CARBON DIOXIDE 27.6 mmol/L (21.0-32.0); CHLORIDE - SERUM 102 mmol/L (98-107); CREATININE - SERUM 0.8 mg/dL (0.6-1.3); GLUCOSE 95 mg/dL (74-106); POTASSIUM - SERUM 4.1 mmol/L (3.5-5.1); SODIUM 137 mmol/L (136-145); UREA NITROGEN 19 mg/dL (7-18); eGFR NON AFRICAN AMERICAN > 90 mL/min (90-120)
[2019-11-23 10:21] VITALS: BP 102/71; BMI 17.6
[2019-11-23 12:43] VITALS: BP 96/62
[2019-11-23 16:54] VITALS: BP 93/64
--- NOTE | 2019-11-23 17:10 | NUR ---
DISCUSSED WITH DR LEDBETTER ABOUT LOW BP AND PAIN MED. DR LEDBETTER SAID IT WAS OK TO GIVE HIM THE PERCOCET.
--- NOTE | 2019-11-23 17:40 | NUR ---
PATIENT REQUESTING PAIN MEDICATION. CANNOT DO TO LOW BP. 96/64 MECCA WAS 98/66. PATIENT VOICED UNDERSTANDING THAT HIS BP IS TO LOW. BUT DOES NOT UNDERSTAND WHY IT IS LOW SINCE "MY BLOOD PRESSURE HAS BEEN FINE." CL IN REACH. WCTM
[2019-11-23 18:50] VITALS: Ht 182.9 cm; Wt 59.1 kg
[2019-11-23 19:30] VITALS: BP 91/57
--- NOTE | 2019-11-23 19:57 | NUR ---
REC'D IN [facility] DR LEDBETTER HERE STATES MILLI SPRINGMeghan CAN'T COME AND GET PT. THIS LATE STATES WILL DC IN AM.VOICES UNDERSTANDING WILL CONTINUE TO MONITOR FOR ANY CHGES AND FOLLOW CURRENT PLAN OF CARE.
[2019-11-24 00:30] VITALS: BP 98/62
[2019-11-24 05:30] VITALS: BP 108/70; BP 99/58
--- NOTE | 2019-11-24 06:28 | NUR ---
I have reviewed this patient and I concur with the Shift Assessment completed by the Licensed Practical Nurse today this shift.
--- NOTE | 2019-11-24 07:41 | NUR ---
PT IS RESTING IN BED WITH EYES OPEN. RESPIRATIONS ARE EVEN AND UNLABORED. PT IS AAO X 4. PT DENIES PRESENCE OF PAIN/N/V. PT REPORTS CONCERN RELATED TO TRANSPORTATION BACK TO NURSING FACILITY. PT STATES "I KNOW THEY ONLY HAVE 1 REAL ESTATE APPRAISER ON FRIDAY AND HE IS NORMALLY IN [place] ALL DAY". LEFT CHEST PORT IS ACCESSED AND SL. FLUSHES WITHOUT DIFFICULTY. BED IS IN THE LOWEST POSITION. CALL LIGHT AND BEDSIDE TABLE ARE WITHIN REACH. SIDE RAILS X2. PT DENIES FURTHER NEEDS. WILL CONT TO MONITOR.
[2019-11-24 08:19] VITALS: BP 122/75
--- NOTE | 2019-11-24 09:57 | NUR ---
REPORT CALLED TO RAYNE GREENBERG AT [facility].
--- NOTE | 2019-11-24 10:29 | MORECARE ---
CASE MANAGEMENT DISCHARGE SUMMARY PATIENT: ZEINAB ORTIZ UNIT: [id number] ADM DATE: 11/23/19 AGE: 54 : 65 SEX: M ROOM/BED: D.2234 AUTHOR: JULIA ROJAS PHYSICIAN: REFERRING PHYSICIAN: TREVOR LEDBETTER MD DATE OF SERVICE: 11/24/19 Discharge Plan Patient Name: ZEINAB ORTIZ Facility: [facility]:[place] : 1965 Planned Disposition: Prison Facility Anticipated Discharge Date: 11/24/19 Discharge Date: Expected LOS: 1 Initial Reviewer: [email or web address] Initial Review Date: 11/23/2019 Generated: 11/24/19 11:28 am Patient Name: ZEINAB ORTIZ Page 37198 at 1029 All edits/amendments must be made on the electronic document DICTATION DATE: 11/24/19 1028 HOT TAMALE WORKER: RIKI 11/24/19 1028 RPT#: [id number] DC DATE: STATUS: ADM IN [facility] [address] [place] [address] END OF REPORT
--- NOTE | 2019-11-24 10:36 | MORECARE ---
CASE MANAGEMENT DISCHARGE SUMMARY PATIENT: ZEINAB ORTIZ UNIT: [id number] ADM DATE: 11/23/19 AGE: 54 : 65 SEX: M ROOM/BED: D.2234 AUTHOR: JULIA ROJAS PHYSICIAN: REFERRING PHYSICIAN: TREVOR LEDBETTER MD DATE OF SERVICE: 11/24/19 Discharge Plan Patient Name: ZEINAB ORTIZ Facility: [facility]:[place] : 1965 Planned Disposition: Correction Facility Anticipated Discharge Date: 11/24/19 Discharge Date: Expected LOS: 1 Initial Reviewer: [id number] Initial Review Date: 11/23/2019 Generated: 11/24/19 11:35 am Last DP export: 11/24/19 9:29 am Patient Name: ZEINAB ORTIZ Page 30063 at 1036 All edits/amendments must be made on the electronic document DICTATION DATE: 11/24/19 1035 ELECTRICIAN OUTSIDE: RIKI 11/24/19 1035 RPT#: [id number] DC DATE: STATUS: ADM IN [facility] [address] [place] [address] END OF REPORT
--- NOTE | 2019-11-24 10:41 | NUR ---
RIGHT CHEST PORT DEACCESSED. SEE EMAR. DRESSING APPLIED. ALL DISCHARGE INSTRUCTIONS COVERED WITH PT. PT DENIES QUESTIONS/CONCERNS/NEEDS AT THIS TIME. PT STATES THAT HE WILL "WAIT DOWNSTAIRS FOR MY RIDE". ALL DISCHARGE PAPERS SIGNED.
--- NOTE | 2019-11-24 10:49 | MORECARE ---
CASE MANAGEMENT DISCHARGE SUMMARY PATIENT: ZEINAB ORTIZ UNIT: [id number] ADM DATE: 11/23/19 AGE: 54 : 65 SEX: M ROOM/BED: D.2234 AUTHOR: JULIA ROJAS PHYSICIAN: REFERRING PHYSICIAN: TREVOR LEDBETTER MD DATE OF SERVICE: 11/24/19 Discharge Plan Patient Name: ZEINAB ORTIZ Facility: [facility]:[place] : 1965 Planned Disposition: Nursing Home Facility Anticipated Discharge Date: 11/24/19 Discharge Date: Expected LOS: 1 Initial Reviewer: [email or web address] Initial Review Date: 11/23/2019 Generated: 11/24/19 11:48 am Comments DCP- Discharge Planning Updated by [email or web address]: Jenny Moody on 11/24/19 9:[address] PATIENT WAS ADMITTED FOR INFUSIONAL CHEMO, OXALIPLATIN, LEUCOVORIN AND 5FU. HE IS A RESIDENT AT [facility]/ MEDICAID BED. THE HOSPITAL PHARMACY DID NOT HAVE HIS CHEMO ORDERED AND ON SITE. THEREFORE HE WAS TO BE DISCHARGED BACK TO THE FACILITY MEDICATION COULD NOT BE OBTAINED. HE WAS HELD OVERNIGHT. TC TO [facility] THIS AM. SPOKE WITH RAYNE. THEY WILL ARRANGE FOR TRANSPORTATION. [facility] WILL F/U WITH A PHONE CALL TO VERIFY THE MEDICATION IS AVAILABLE TOMORROW. THE PLAN IS FOR THE PATIENT TO BE READMITTED ON Friday11/25/2019. THE PRIMARY NURSE CALLED REPORT. CM SPOKE WITH THE PATIENT AND EXPLAINED THE PLAN. HE UNDERSTANDS AND IS IN AGREEMENT. CM ALSO SPOKE WITH THE PHARMACY, THEY PLAN TO ORDER THE CHEMO IN THE AM IT CAN NOT BE ORDERED TODAY. AWAIT TRANSPORTATION. Last DP export: 11/24/19 9:36 am Patient Name: ZEINAB ORTIZ Page [id number] at 1049 All edits/amendments must be made on the electronic document DICTATION DATE: 11/24/19 1048 DRESS FINISHER: RIKI 11/24/19 1048 RPT#: [id number] DC DATE: STATUS: ADM IN [facility] [address] [place] [address] END OF REPORT
--- NOTE | 2019-11-26 15:20 | MORECARE ---
CASE MANAGEMENT DISCHARGE SUMMARY PATIENT: EDVIN ORTIZ UNIT: [id number] ADM DATE: 11/23/19 AGE: 54 : 65 SEX: M ROOM/BED: D.2234 AUTHOR: JULIA ROJAS PHYSICIAN: REFERRING PHYSICIAN: TREVOR LEDBETTER MD DATE OF SERVICE: 11/26/19 Discharge Plan Patient Name: EDVIN ORTIZ Facility: [facility]:[place] : 1965 Planned Disposition: Custodial Facility Anticipated Discharge Date: 11/24/19 Discharge Date: 11/24/2019 Expected LOS: 1 Initial Reviewer: [email or web address] Initial Review Date: 11/23/2019 Generated: 11/26/19 4:19 pm Comments DCP- Discharge Planning Updated by [email or web address]: Jenny Moody on 11/24/19 9:[address] PATIENT WAS ADMITTED FOR INFUSIONAL CHEMO, OXALIPLATIN, LEUCOVORIN AND 5FU. HE IS A RESIDENT AT [facility]/ MEDICAID BED. THE HOSPITAL PHARMACY DID NOT HAVE HIS CHEMO ORDERED AND ON SITE. THEREFORE HE WAS TO BE DISCHARGED BACK TO THE FACILITY MEDICATION COULD NOT BE OBTAINED. HE WAS HELD OVERNIGHT. TC TO [facility] THIS AM. SPOKE WITH RAYNE. THEY WILL ARRANGE FOR TRANSPORTATION. [facility] WILL F/U WITH A PHONE CALL TO VERIFY THE MEDICATION IS AVAILABLE TOMORROW. THE PLAN IS FOR THE PATIENT TO BE READMITTED ON Friday11/25/2019. THE PRIMARY NURSE CALLED REPORT. CM SPOKE WITH THE PATIENT AND EXPLAINED THE PLAN. HE UNDERSTANDS AND IS IN AGREEMENT. CM ALSO SPOKE WITH THE PHARMACY, THEY PLAN TO ORDER THE CHEMO IN THE AM IT CAN NOT BE ORDERED TODAY. AWAIT TRANSPORTATION. Last DP export: 11/24/19 9:49 am Patient Name: EDVIN ORTIZ Page 08105 at 1520 All edits/amendments must be made on the electronic document DICTATION DATE: 11/26/19 1519 HAIRSPRING VIBRATOR: RIKI 11/26/19 1519 RPT#: [id number] DC DATE:11/24/19 STATUS: DIS IN [address] [place] [address] END OF REPORT
== END 2019-11-24 11:04 | DRG 847 ==
LOC: D.SDCHOLD 08:38 → D.MS 08:39
PROVIDERS: ADMIT Internal Medicine Hematology & Oncology; ATTEND Internal Medicine Hematology & Oncology
DX: Z51.11 Encounter for antineoplastic chemotherapy (principal); C18.9 Malignant neoplasm of colon, unspecified; C78.7 Secondary malignant neoplasm of liver and intrahepatic bile duct; Z68.1 Body mass index [BMI] 19.9 or less, adult; I10 Essential (primary) hypertension; R63.4 Abnormal weight loss; D64.9 Anemia, unspecified

== ENCOUNTER 2019-11-25 08:52 | Inpatient (IN) | payer MEDICAID ==
[2019-11-25] VITALS (12 sets, daily range): BP systolic 87–121; BP diastolic 45–63; BMI 17.6
[~2019-11-25] VITALS: Ht 182.9 cm; Wt 59.0 kg
[~2019-11-25 08:52] MED LIST changes: +ATIVAN0.5 MG PO; +HYDROCHLOROTH12.5 M1 PO; +SYNTHROID25 MCG PO
--- NOTE | 2019-11-25 13:45 | NUR ---
GOOD BLOOD RETURN ON RIGHT CHEST PORT. TEMP 98.2, PULSE 68, RESP 16, BP 102/62, O2 SAT 98 ON ROOM AIR. MEDICATIONS SET TO RUN PER ORDERS. WILL MONITOR.
--- NOTE | 2019-11-25 14:36 | NUR ---
GOOD BLOOD RETURN TO RIGHT CHEST PORT, FLUSHED WITH D5W. PT TOLERATING WELL. WILL CONTINUE TO MONITOR.
--- NOTE | 2019-11-25 17:15 | NUR ---
GOOD BLOOD RETURN TO RIGHT PORT. FLUSHED WITH D5W. STARTED MEDICATIONS PER ORDER.
[2019-11-26] VITALS: BP 87/58
[2019-11-26 04:00] VITALS: BP 83/59
--- NOTE | 2019-11-26 06:00 | NUR ---
CHECKED BLOOD RETURN EVERY 4 HOURS. GOOD BLOOD RETURN EACH TIME. PT TOLERATING CONTINUOUS CHEMO INFUSION. VITALS SIGNS REMAIN STABLE. WILL CONTINUE TO MONITOR.
--- NOTE | 2019-11-26 07:15 | NUR ---
PT IS RESTING IN BED WITH EYES OPEN. RESPIRATIONS ARE EVEN AND UNLABORED. PT DENIES PRESENCE OF N/V/PAIN AT THIS TIME. CHEMO INFUSING TO RIGHT CHEST PORT WITHOUT DIFFICULTY. COLOSTOMY TO LLQ. PT IS AAO X 4. BED IS IN THE LOWEST POSITION. CALL LIGHT AND BEDSIDE TABLE ARE WITHIN REACH. SIDE RAILS X 2. PT DENIES FURTHER NEEDS. WILL CONT TO MONITOR.
[2019-11-26 08:29] VITALS: BP 94/67
[2019-11-26 12:52] VITALS: BP 113/71
[2019-11-26 13:28] VITALS: Ht 182.9 cm; Wt 59.0 kg
[2019-11-26 18:14] VITALS: BP 99/65
--- NOTE | 2019-11-26 18:41 | NUR ---
CHEMO HANGED PER HOSPITAL PROTOCOL . LINE FLUSHED WITH GOOD BLOOD RETURN
[2019-11-26 20:00] VITALS: BP 112/74
--- NOTE | 2019-11-26 20:30 | NUR ---
BLOOD RETURN CHECKED. DENIES PAIN AT THIS TIME. BROUGHT PT STEFANIE KEEN. PT TOLERATING CHEMO INFUSION. COMPLETE ASSESSMENT PER FLOW-SHEET. NO OTHER NEEDS. WILL CONTINUE TO MONITOR.
[2019-11-27] VITALS: BP 107/68; BP 115/64
[2019-11-27 04:00] VITALS: BP 120/78
--- NOTE | 2019-11-27 04:28 | NUR ---
PT TOLERATING CONTINUOUS CHEMO INFUSION WELL. GOOD BLOOD RETURN CHECKED EVERY 4 HOURS. PT C/O ABDOMINAL PAIN 06/02. GAVE PERCOCET-10 1 TAB AND ATIVAN 0.5 MG PO. PT AMBULATED TO COFFEE POT. NO OTHER NEEDS. WILL CONTINUE TO MONITOR.
[2019-11-27 08:36] VITALS: BP 121/88
--- NOTE | 2019-11-27 10:22 | MORECARE ---
CASE MANAGEMENT DISCHARGE SUMMARY PATIENT: EDVIN ORTIZ UNIT: [id number] ADM DATE: 11/25/19 AGE: 54 : 65 SEX: M ROOM/BED: D.2234 AUTHOR: JULIA ROJAS PHYSICIAN: REFERRING PHYSICIAN: TREVOR LEDBETTER MD DATE OF SERVICE: 11/27/19 Discharge Plan Patient Name: EDVIN ORTIZ Facility: [facility]:[place] : 1965 Planned Disposition: Nursing Facility RADHA Cert Anticipated Discharge Date: Discharge Date: Expected LOS: Initial Reviewer: [email or web address] Initial Review Date: 11/27/2019 Generated: 11/27/19 11:21 am Patient Name: EDVIN ORTIZ Page 31999 at 1022 All edits/amendments must be made on the electronic document DICTATION DATE: 11/27/19 1021 LEGAL WORD PROCESSOR: RIKI 11/27/19 1021 RPT#: [id number] DC DATE: STATUS: ADM IN [facility] [address] [place] [address] END OF REPORT
--- NOTE | 2019-11-27 10:28 | MORECARE ---
CASE MANAGEMENT DISCHARGE SUMMARY PATIENT: EDVIN ORTIZ UNIT: [id number] ADM DATE: 11/25/19 AGE: 54 : 65 SEX: M ROOM/BED: D.2234 AUTHOR: JULIA ROJAS PHYSICIAN: REFERRING PHYSICIAN: CHELSEY LEDBETTER MD DATE OF SERVICE: 11/27/19 Discharge Plan Patient Name: EDVIN ORTIZ Facility: [facility]:[place] : 1965 Planned Disposition: Nursing Facility RADHA Cert Anticipated Discharge Date: Discharge Date: Expected LOS: Initial Reviewer: [email or web address] Initial Review Date: 11/27/2019 Generated: 11/27/19 11:28 am Comments DCP- Discharge Planning Updated by [email or web address]: Margret Hogue on 11/27/19 9:[address] Patient Name: EDVIN ORTIZ Admission Status: Elective Accout number: [id number] Admission Date: 11-25-2019 : 1965 Admission Diagnosis: Attending: Chelsey Ledbetter Current LOS: 2 Anticipated DC Date: Planned Disposition: Nursing Facility RADHA Cert Primary Insurance: MEDICAID [place] PENDING Discharge Planning Comments: CM met with patient at bedside after explaining CM role and obtaining verbal consent. Patient lives at [facility] [phone] plans to return there upon discharge. Patient feels this would be a safe discharge. Patient denies any discharge needs at this time.CM will continue to follow and assist as needed with discharge planning / need Sign Shop Supervisor: Margret Hogue Last DP export: 11/27/19 9:22 am Patient Name: EDVIN ORTIZ Page 14555 at 1028 All edits/amendments must be made on the electronic document DICTATION DATE: 11/27/19 1028 LEI MAKER: RIKI 11/27/19 1028 RPT#: [id number] DC DATE: STATUS: [place] [address] END OF REPORT
--- NOTE | 2019-11-27 10:35 | MORECARE ---
CASE MANAGEMENT DISCHARGE SUMMARY PATIENT: EDVIN ORTIZ UNIT: [id number] ADM DATE: 11/25/19 AGE: 54 : 65 SEX: M ROOM/BED: D.2234 AUTHOR: BOB,DOC PHYSICIAN: REFERRING PHYSICIAN: CHELSEY LEDBETTER MD DATE OF SERVICE: 11/27/19 Discharge Plan Patient Name: EDVIN ORTIZ Facility: [facility] : 1965 Planned Disposition: Nursing Facility RADHA Cert Anticipated Discharge Date: Discharge Date: Expected LOS: Initial Reviewer: [email or web address] Initial Review Date: 11/27/2019 Generated: 11/27/19 11:35 am Comments DCP- Discharge Planning Updated by [email or web address]: Margret Hogue on 11/27/19 9:[address] CM called [facility] and spoke with Bettye. She stated that they didn't have any transportation this evening for patient to return to facility after 6pm tonight. She stated that they usually don't have transportation on weekends. She is going to see if she can get it arranged for tomorrow (Friday) am. Bettye is to call CM back once it is arranged. CM will continue to follow and assist as needed with discharge planning / needs. DCP- Discharge Planning Updated by [email or web address]: Margret Hogue on 11/27/19 9:[address] Patient Name: EDVIN ORTIZ Admission Status: Elective Accout number: [id number] Admission Date: 11-25-2019 : 1965 Admission Diagnosis: Attending: Chelsey Ledbetter Current LOS: 2 Anticipated DC Date: Planned Disposition: Nursing Facility RADHA Cert Primary Insurance: MEDICAID [place] PENDING Discharge Planning Comments: CM met with patient at bedside after explaining CM role and obtaining verbal consent. Patient lives at [facility] [phone] plans to return there upon discharge. Patient feels this would be a safe discharge. Patient denies any discharge needs at this time.CM will continue to follow and assist as needed with discharge planning / need Manufacturing Executive: Margret Hogue Last DP export: 11/27/19 9:28 am Patient Name: EDVIN ORTIZ Page 44773 at 1035 All edits/amendments must be made on the electronic document DICTATION DATE: 11/27/19 1035 BEARING RING ASSEMBLER: RIKI 11/27/19 1035 RPT#: [id number] DC DATE: STATUS: ADM IN [facility] [address] [place] [address] END OF REPORT
[2019-11-27 13:31] VITALS: BP 120/79
--- NOTE | 2019-11-27 15:42 | MORECARE ---
CASE MANAGEMENT DISCHARGE SUMMARY PATIENT: EDVIN ORTIZ UNIT: [id number] ADM DATE: 11/25/19 AGE: 54 : 65 SEX: M ROOM/BED: D.2234 AUTHOR: BOB,DOC PHYSICIAN: REFERRING PHYSICIAN: CHELSEY LEDBETTER MD DATE OF SERVICE: 11/27/19 Discharge Plan Patient Name: EDVIN ORTIZ Facility: [facility]:[place] : 1965 Planned Disposition: Nursing Facility [facility] Cert Anticipated Discharge Date: Discharge Date: Expected LOS: Initial Reviewer: [id number] Initial Review Date: 11/27/2019 Generated: 11/27/19 4:42 pm Comments DCP- Discharge Planning Updated by [email or web address]: Stefani King on 11/27/19 2:[address] DC PLAN: RETURN TO [facility] VIA AMBULANCE. CM CALLED AND SPOKE TO SAMMIE WHO STATED SHE IS WORKING ON TRANSPORTATION FOR THE PATIENT BACK TO THEIR FACILITY. SHE STATED IT MAY BE TOMORROW. CM POLITELY INFORMED HER PATIENT HAS BEEN DISCHARGED FOR TODAY AND THAT A AMBULANCE WILL BE ARRANGED FOR HIS DISCHARGE BACK TO THEIR FACILITY IF THEY WERE UNABLE TO PROVIDE TRANSPORTATION FOR HIM. SHE SAID SHE WILL CONTINUE TO WORK ON IT AND CALL ME BACK. SHE LATER CALLED STATING SHE COULD NOT FIND TRANSPORTATION AND THAT WE CAN SEND HIM BACK BY AMBULANCE. CM NOTIFIED UTILITY HELICOPTER REPAIRER, VALERIE AND THE PATIENT'S NURSE. ALSO REQUESTED THAT THE NURSE CALL REPORT PRIOR TO EMS PICKING HIM UP. REPORT IS TO BE CALLED TO LAURA. STEFANI KING RN, [facility] DCP- Discharge Planning Updated by [id number]: Margret Hogue on 11/27/19 9:[address] CM called [facility] and spoke with Alicia Warner. She stated that they didn't have any transportation this evening for patient to return to facility after 6pm tonight. She stated that they usually don't have transportation on weekends. She is going to see if she can get it arranged for tomorrow (Friday) am. Alicia Warner is to call CM back once it is arranged. CM will continue to follow and assist as needed with discharge planning / needs. DCP- Discharge Planning Updated by [email or web address]: Margret Hogue on 11/27/19 9:[address] Patient Name: EDVIN ORTIZ Admission Status: Elective Accout number: [id number] Admission Date: 11-25-2019 : 1965 Admission Diagnosis: Attending: Chelsey Ledbetter Current LOS: 2 Anticipated DC Date: Planned Disposition: Nursing Facility [facility] Primary Insurance: MEDICAID [place] PEND[place] Discharge Planning Comments: CM met with patient at bedside after explaining CM role and obtaining verbal consent. Patient lives at [facility] and [facility] [phone] plans to return there upon discharge. Patient feels this would be a safe discharge. Patient denies any discharge needs at this time.CM will continue to follow and assist as needed with discharge planning / need Mechanical Inspector: Margret ALVA export: 11/27/19 9:35 am Patient Name: EDVIN ORTIZ Page [id number] at 1542 All edits/amendments must be made on the electronic document DICTATION DATE: 11/27/19 1542 GENERAL SERVICE TECHNICIAN: RIKI 11/27/19 1542 RPT#: [id number] DC DATE: STATUS: ADM IN [facility] [address] [place] [address] END OF REPORT
[2019-11-27 16:42] VITALS: BP 119/80
[2019-11-27 20:00] VITALS: BP 113/48
--- NOTE | 2019-11-27 21:20 | NUR ---
CHEMO INFUSION COMPLETE. TOOK DOWN CHEMO BAG/TUBING AND DISPOSED OF IN YELLOW HAZMAT CONTAINER. FLUSHED TWICE AND HEPLOCKED. DE-ACCESSED PORT AND COVERED WITH GAUZE AND TEGADERM. DISPOSED OF HUBERNEEDLE IN YELLOW CONTAINER. CHEMO PRECAUTIONS OBSERVED. PT C/O ABDOMINAL PAIN 05/03 AND ANXIETY. GAVE PERCOCET-10 AND ATIVAN 0.5 MG PO WITH COFFEE. REVIEWED DISCHARGE INSTRUCTIONS. [employer] ARRIVED AND TRANSPORTED PT OFF FLOOR TO GO BACK TO [facility] WHERE HE RESIDES.
--- NOTE | 2019-11-28 10:42 | MORECARE ---
CASE MANAGEMENT DISCHARGE SUMMARY PATIENT: EDVIN ORTIZ UNIT: [id number] ADM DATE: 11/25/19 AGE: 54 : 65 SEX: M ROOM/BED: D.2234 AUTHOR: BOB,DOC PHYSICIAN: REFERRING PHYSICIAN: CHELSEY LEDBETTER MD DATE OF SERVICE: 11/28/19 Discharge Plan Patient Name: EDVIN ORTIZ Facility: [facility]:[place] : 1965 Planned Disposition: Nursing Facility [facility] Cert Anticipated Discharge Date: Discharge Date: 11/27/2019 Expected LOS: Initial Reviewer: [email or web address] Initial Review Date: 11/27/2019 Generated: 11/28/19 11:41 am Comments DCP- Discharge Planning Updated by [email or web address]: Stefani King on 11/27/19 2:[address] DC PLAN: RETURN TO [facility] VIA AMBULANCE. CM CALLED AND SPOKE TO SAMMIE WHO STATED SHE IS WORKING ON TRANSPORTATION FOR THE PATIENT BACK TO THEIR FACILITY. SHE STATED IT MAY BE TOMORROW. CM POLITELY INFORMED HER PATIENT HAS BEEN DISCHARGED FOR TODAY AND THAT A AMBULANCE WILL BE ARRANGED FOR HIS DISCHARGE BACK TO THEIR FACILITY IF THEY WERE UNABLE TO PROVIDE TRANSPORTATION FOR HIM. SHE SAID SHE WILL CONTINUE TO WORK ON IT AND CALL ME BACK. SHE LATER CALLED STATING SHE COULD NOT FIND TRANSPORTATION AND THAT WE CAN SEND HIM BACK BY AMBULANCE. CM NOTIFIED LOCKSTITCH BINDER, VALERIE AND THE PATIENT'S NURSE. ALSO REQUESTED THAT THE NURSE CALL REPORT PRIOR TO EMS PICKING HIM UP. REPORT IS TO BE CALLED TO LAURA. STEFANI KING RN, [facility] DCP- Discharge Planning Updated by [id number]: Margret Hogue on 11/27/19 9:[address] CM called [facility] and spoke with Alicia Warner. She stated that they didn't have any transportation this evening for patient to return to facility after 6pm tonight. She stated that they usually don't have transportation on weekends. She is going to see if she can get it arranged for tomorrow (Friday) am. Alicia Warner is to call CM back once it is arranged. CM will continue to follow and assist as needed with discharge planning / needs. DCP- Discharge Planning Updated by [id number]: Margret Hogue on 11/27/19 9:[address] Patient Name: EDVIN ORTIZ Admission Status: Elective Accout number: [id number] Admission Date: 11-25-2019 : 1965 Admission Diagnosis: Attending: Chelsey Ledbetter Current LOS: 2 Anticipated DC Date: Planned Disposition: Nursing Facility [facility] Primary Insurance: MEDICAID [place] PENDING Discharge Planning Comments: CM met with patient at bedside after explaining CM role and obtaining verbal consent. Patient lives at [facility] and [facility] [phone] plans to return there upon discharge. Patient feels this would be a safe discharge. Patient denies any discharge needs at this time.CM will continue to follow and assist as needed with discharge planning / need Dental Laboratory Technician Apprentice: Margret Hogue Last DP export: 11/27/19 2:42 pm Patient Name: EDVIN ORTIZ Page 03589 at 1042 All edits/amendments must be made on the electronic document DICTATION DATE: 11/28/19 1041 SECOND SHIFT SUPERVISOR: RIKI 11/28/19 1041 RPT#: [id number] DC DATE:11/27/19 STATUS: DIS IN [facility] [address] [place] [address] END OF REPORT
== END 2019-11-27 21:20 | DRG 847 ==
LOC: D.MS 08:52
PROVIDERS: ADMIT Internal Medicine Hematology & Oncology; ATTEND Internal Medicine Hematology & Oncology
DX: Z51.11 Encounter for antineoplastic chemotherapy (principal); C18.9 Malignant neoplasm of colon, unspecified; C78.7 Secondary malignant neoplasm of liver and intrahepatic bile duct; Z68.1 Body mass index [BMI] 19.9 or less, adult; E44.0 Moderate protein-calorie malnutrition; D50.9 Iron deficiency anemia, unspecified; I10 Essential (primary) hypertension

== ENCOUNTER 2019-12-09 07:37 | Inpatient (IN) | payer MEDICAID ==
[~2019-12-09] VITALS: Ht 182.9 cm; Wt 59.0 kg
[2019-12-09 08:26] VITALS: BP 94/66; BMI 17.6
--- NOTE | 2019-12-09 08:34 | NUR ---
ASSESSMENT PER FLOW SHEET. PT IS WITHOUT DISTRESS.CALL LIGHT IN REACH.BREAKFAST TRAY ORDERED PER PT REQUEST.
[2019-12-09 09:00] LABS: HEMATOCRIT 36.3 % (42.0-54.0); HEMOGLOBIN 11.5 g/dL (13.5-17.5); MCH 25.3 pg (26.0-34.0); MCHC 31.7 g/dL (31.0-37.0); MEAN PLATELET VOLUME 8.3 fL (7.4-10.4); PLATELET COUNT 229 10x3/uL (130-400); RBC 4.54 10x6/uL (4.20-6.10); RDW 18.2 % (11.5-14.5); WBC 7.9 10x3/uL (4.8-10.8)
[2019-12-09 09:07] LABS: CALC OSMOLALITY 272 mosm/kg (275-300); CARBON DIOXIDE 31.4 mmol/L (21.0-32.0); CHLORIDE - SERUM 98 mmol/L (98-107); GLUCOSE 92 mg/dL (74-106); POTASSIUM - SERUM 4.4 mmol/L (3.5-5.1); SODIUM 134 mmol/L (136-145); UREA NITROGEN 26 mg/dL (7-18); eGFR NON AFRICAN AMERICAN 83 mL/min (90-120)
[2019-12-09 09:15] LABS: ALKALINE PHOSPHATASE 350 U/L (46-116); ALT (SGPT) 45 U/L (10-68); BILIRUBIN - TOTAL 0.27 mg/dL (0.2-1.3); PROTEIN - SERUM 7.9 g/dL (6.4-8.2)
[2019-12-09 12:14] VITALS: BP 86/54
[2019-12-09 12:37] LABS: EOSINOPHILS 1 % (0-7); LYMPHOCYTES 16 % (15-50); MONOCYTES 7 % (2-11); NEUTROPHILS 76 % (40-80); PLATELET ESTIMATE NORMAL
--- NOTE | 2019-12-09 14:15 | NUR ---
BLOOD CONFIRMED VIA PORT.CHEMO ORDERED. PT IS WITHOUT DISTRESS.VSS.
[2019-12-09 16:33] VITALS: BP 97/67
--- NOTE | 2019-12-09 18:48 | NUR ---
PT HAS TOLERATED CHEMO ORDERED. HE HAS BEEN WITHOUT DISTRESS.CONT PLAN OF CARE
[2019-12-09 20:00] VITALS: BP 101/66
[2019-12-10] VITALS: BP 104/60
--- NOTE | 2019-12-10 03:00 | NUR ---
CONTINUOUS CHEMO INFUSING. VITAL SIGNS STABLE. PT TOLERATING WELL. PT EATING TURKEY SANDWICH. NO OTHER NEEDS. WILL CONTINUE TO MONITOR.
[2019-12-10 04:00] VITALS: BP 116/78
[2019-12-10 05:30] LABS: BASOPHILS 0 % (0-2); EOSINOPHILS 0 % (0-7); HEMATOCRIT 39.4 % (42.0-54.0); HEMOGLOBIN 12.4 g/dL (13.5-17.5); IMMATURE GRANULOCYTES 0.1 % (0-5); MCH 25.3 pg (26.0-34.0); MCHC 31.5 g/dL (31.0-37.0); MCV 80.4 fL (80.0-100.0); MEAN PLATELET VOLUME 8.7 fL (7.4-10.4); MONOCYTES 5.2 % (2-11); NEUTROPHILS 86.7 % (40-80); RDW 18.2 % (11.5-14.5); WBC 8.4 10x3/uL (4.8-10.8)
[2019-12-10 05:40] LABS: ALKALINE PHOSPHATASE 363 U/L (46-116); ALT (SGPT) 42 U/L (10-68); BILIRUBIN - TOTAL 0.29 mg/dL (0.2-1.3); CALC OSMOLALITY 276 mosm/kg (275-300); CALCIUM 9.2 mg/dL (8.5-10.1); CHLORIDE - SERUM 99 mmol/L (98-107); CREATININE - SERUM 0.9 mg/dL (0.6-1.3); GLUCOSE 118 mg/dL (74-106); POTASSIUM - SERUM 4.8 mmol/L (3.5-5.1); PROTEIN - SERUM 8.3 g/dL (6.4-8.2); SODIUM 136 mmol/L (136-145); UREA NITROGEN 24 mg/dL (7-18); eGFR NON AFRICAN AMERICAN > 90 mL/min (90-120)
[2019-12-10 05:42] LABS: PLATELET COUNT 277 10x3/uL (130-400)
--- NOTE | 2019-12-10 07:10 | NUR ---
PT RESTING IN BED. NO SIGNS OF DISTRESS. IV TO RIGHT CHEST PATENT NO REDNESS OR TENDERNESS. COLOSTOMY TO LEFT SIDE. COMPLAINS OF PAIN. MEDICATIONS ALREADY GIVEN. DENIES ANY FURTHER NEED AT THIS TIME. CALL LIGHT IN REACH. BED LOW POSITION. NO FAMILY AT BEDSIDE AT THIS TIME.
[2019-12-10 09:00] VITALS: BP 118/62
--- NOTE | 2019-12-10 12:51 | NUR ---
I have reviewed this patient and I concur with the Shift Assessment completed by the Licensed Practical Nurse today this shift.
[2019-12-10 13:16] VITALS: BP 101/65
[2019-12-10 13:41] VITALS: Ht 182.9 cm; Wt 59.0 kg
[2019-12-10 17:23] VITALS: BP 112/76
[2019-12-10 20:00] VITALS: BP 121/80
--- NOTE | 2019-12-10 20:46 | NUR ---
PREMED GIVEN BEFORE SHIFT CHANGE. VITALS SIGNS STABLE. GOOD BLOOD RETURN. ADMINISTRATION CHECKED WITH 2ND RN. STARTED LEUCOVORIN INFUSING AT 125 ML/HR. PT TOLERATING WELL. WILL CONTINUE TO MONITOR.
--- NOTE | 2019-12-10 23:33 | NUR ---
LEUCOVORIN INFUSION COMPLETE. DOUBLE FLUSHED AND DISPOSED OF CHEMO IN YELLOW BIOHAZARD CONTAINER. PT TOLERATED WELL. VITALS SIGNS WNL. REVIEWED ADMINISTRATION WITH 2ND RN. STARTED INFUSION OF FLUOROURACIL AT 46.4 ML/HR TO RUN OVER 24 HOURS. PT TOLERATING WELL. WILL CONTINUE TO ASSESS AND MONITOR.
[2019-12-11] VITALS: BP 120/74
[2019-12-11 04:00] VITALS: BP 125/80
[2019-12-11 06:19] LABS: BASOPHILS 0 % (0-2); EOSINOPHILS 0 % (0-7); HEMATOCRIT 37.1 % (42.0-54.0); HEMOGLOBIN 11.9 g/dL (13.5-17.5); IMMATURE GRANULOCYTES 0.1 % (0-5); LYMPHOCYTES 5.4 % (15-50); MCH 25.3 pg (26.0-34.0); MCHC 32.1 g/dL (31.0-37.0); MCV 78.9 fL (80.0-100.0); MONOCYTES 1.9 % (2-11); NEUTROPHILS 92.6 % (40-80); PLATELET COUNT 263 10x3/uL (130-400); RDW 18.5 % (11.5-14.5)
[2019-12-11 06:34] LABS: ALBUMIN 2.7 g/dL (3.4-5.0); ALKALINE PHOSPHATASE 298 U/L (46-116); ALT (SGPT) 39 U/L (10-68); BILIRUBIN - TOTAL 0.21 mg/dL (0.2-1.3); CALC OSMOLALITY 274 mosm/kg (275-300); CALCIUM 9.2 mg/dL (8.5-10.1); CARBON DIOXIDE 26.5 mmol/L (21.0-32.0); CHLORIDE - SERUM 100 mmol/L (98-107); CREATININE - SERUM 0.8 mg/dL (0.6-1.3); GLUCOSE 142 mg/dL (74-106); POTASSIUM - SERUM 4.7 mmol/L (3.5-5.1); PROTEIN - SERUM 8.1 g/dL (6.4-8.2); SODIUM 135 mmol/L (136-145); UREA NITROGEN 22 mg/dL (7-18); eGFR NON AFRICAN AMERICAN > 90 mL/min (90-120)
--- NOTE | 2019-12-11 08:47 | NUR ---
PT ALERT X 4. BREATH SOUNDS CLEAR BILAT. PORT TO RIGHT CHEST, PATENT, DRESSING CDI. COLOSTOMY TO LLQ. PT REPORTING PAIN OF 8/10, WILL MONITOR. BED LOW, CALL LIGHT IN REACH. NO OHTER NEEDS AT THIS TIME.
[2019-12-11 09:33] VITALS: BP 125/92
--- NOTE | 2019-12-11 12:45 | NUR ---
C/O PAIN AT A LEVEL OF 8, PRN PERCOCET GIVEN ORDER.EFFECTIVE RELIEF.
[2019-12-11 13:47] VITALS: BP 121/83
[2019-12-11 17:35] VITALS: BP 96/60
[2019-12-11 20:00] VITALS: BP 100/69
[2019-12-12] VITALS: BP 101/71
--- NOTE | 2019-12-12 01:15 | NUR ---
FLOUROURACIL (CHEMO) INFUSION COMPLETE. VITALS SIGNS STABLE. PT TOLERATED WELL. FLUSHED TWICE AND SALINE LOCKED PORT. DISPOSED OF CHEMO IN YELLOW BIOHAZARD CONTAINER. CHEMO PRECAUTIONS OBSERVED. WILL CONTINUE TO MONITOR.
[2019-12-12 04:00] VITALS: BP 104/66
[2019-12-12 05:44] LABS: BASOPHILS 0.2 % (0-2); EOSINOPHILS 0.4 % (0-7); HEMATOCRIT 36.5 % (42.0-54.0); HEMOGLOBIN 11.3 g/dL (13.5-17.5); IMMATURE GRANULOCYTES 0.2 % (0-5); LYMPHOCYTES 25.7 % (15-50); MCH 24.6 pg (26.0-34.0); MCV 79.5 fL (80.0-100.0); MEAN PLATELET VOLUME 9.1 fL (7.4-10.4); MONOCYTES 7.7 % (2-11); NEUTROPHILS 65.8 % (40-80); PLATELET COUNT 268 10x3/uL (130-400); RBC 4.59 10x6/uL (4.20-6.10); RDW 18.5 % (11.5-14.5); WBC 5.6 10x3/uL (4.8-10.8)
[2019-12-12 06:29] LABS: ALBUMIN 2.6 g/dL (3.4-5.0); ALKALINE PHOSPHATASE 272 U/L (46-116); ALT (SGPT) 41 U/L (10-68); BILIRUBIN - TOTAL 0.17 mg/dL (0.2-1.3); CALCIUM 8.9 mg/dL (8.5-10.1); CARBON DIOXIDE 26.5 mmol/L (21.0-32.0); CHLORIDE - SERUM 103 mmol/L (98-107); CREATININE - SERUM 0.8 mg/dL (0.6-1.3); POTASSIUM - SERUM 4.1 mmol/L (3.5-5.1); PROTEIN - SERUM 7.5 g/dL (6.4-8.2); SODIUM 137 mmol/L (136-145); UREA NITROGEN 21 mg/dL (7-18); eGFR NON AFRICAN AMERICAN > 90 mL/min (90-120)
[2019-12-12 06:30] LABS: CALC OSMOLALITY 276 mosm/kg (275-300); GLUCOSE 93 mg/dL (74-106)
--- NOTE | 2019-12-12 07:45 | NUR ---
REPORT RECIEVED. PT SITTING UP IN BED. RR EVEN AND UNLABORED. PT HAS A RIGHT CHEST PORT INFUSING NS AT 10. BED LOCKED AND IN LOWEST POSITION, CALL LIGHT WITHIN REACH. WILL CTM
[2019-12-12 08:53] VITALS: BP 113/77
--- NOTE | 2019-12-12 10:00 | NUR ---
PT GIVEN SUPPLIES TO CHANGE CLOSTOMY BAG AT THIS TIME.
[2019-12-12 12:56] VITALS: BP 104/69
--- NOTE | 2019-12-12 14:14 | NUR ---
I have reviewed this patient and I concur with the Shift Assessment completed by the Licensed Practical Nurse today this shift.
--- NOTE | 2019-12-12 15:39 | NUR ---
REPORT CALLED TO [facility]. DC PAPERWORK GONE OVER AND SIGNED WITH PT. ALL QUESTIONS ANSWERED. PORT DEACCESSED WITH 300 UNITS OF HEPRIN[facility] TO TRANSPORT PT BACK TO NURSING FACILITY. ALL VALUBLES REMOVED FROM ROOM AT THIS TIME.
== END 2019-12-12 15:41 | DRG 847 ==
LOC: D.SDCHOLD 07:37 → D.MS 07:38
PROVIDERS: Internal Medicine Nephrology; ADMIT Internal Medicine Hematology & Oncology; ATTEND Internal Medicine Hematology & Oncology
DX: Z51.11 Encounter for antineoplastic chemotherapy (principal); C18.9 Malignant neoplasm of colon, unspecified; C78.7 Secondary malignant neoplasm of liver and intrahepatic bile duct; E87.1 Hypo-osmolality and hyponatremia; I10 Essential (primary) hypertension; D50.9 Iron deficiency anemia, unspecified; I95.9 Hypotension, unspecified

== ENCOUNTER 2020-01-20 09:19 | Inpatient (IN) | payer OTHER ==
[~2020-01-20] VITALS: Ht 182.9 cm; Wt 62.6 kg
--- NOTE | 2020-01-20 09:30 | NUR ---
TO ROOM 2224 FROM [facility]. PATIENT IS HERE FOR CHEMO.ASSESSMENT PER FLOW SHEET.
[2020-01-20 09:41] VITALS: BP 102/66; BMI 18.7
[2020-01-20 09:56] LABS: BASOPHILS 0.4 % (0-2); EOSINOPHILS 6.6 % (0-7); HEMATOCRIT 37.5 % (42.0-54.0); IMMATURE GRANULOCYTES 0.1 % (0-5); LYMPHOCYTES 19.2 % (15-50); MCV 81.3 fL (80.0-100.0); MEAN PLATELET VOLUME 8.9 fL (7.4-10.4); MONOCYTES 12.9 % (2-11); NEUTROPHILS 60.8 % (40-80); PLATELET COUNT 203 10x3/uL (130-400); RBC 4.61 10x6/uL (4.20-6.10); RDW 19.7 % (11.5-14.5); WBC 6.8 10x3/uL (4.8-10.8)
[2020-01-20 10:22] LABS: CALC OSMOLALITY 274 mosm/kg (275-300); CHLORIDE - SERUM 100 mmol/L (98-107); CREATININE - SERUM 0.8 mg/dL (0.6-1.3); GLUCOSE 95 mg/dL (74-106); POTASSIUM - SERUM 4.5 mmol/L (3.5-5.1); SODIUM 136 mmol/L (136-145); UREA NITROGEN 21 mg/dL (7-18); eGFR NON AFRICAN AMERICAN > 90 mL/min (90-120)
[2020-01-20 10:27] LABS: ALBUMIN 2.9 g/dL (3.4-5.0); ALKALINE PHOSPHATASE 225 U/L (30-120); ALT (SGPT) 43 U/L (10-68); BILIRUBIN - TOTAL 0.23 mg/dL (0.2-1.3); PROTEIN - SERUM 7.3 g/dL (6.4-8.2)
--- NOTE | 2020-01-20 10:50 | NUR ---
MEDS ORDERED PER JAN FOR PAIN. SCD'S PLACED ON PATIENT.
[2020-01-20 16:44] VITALS: BP 112/50
[2020-01-20 20:00] VITALS: BP 91/54
[2020-01-21] VITALS (10 sets, daily range): BP systolic 89–106; BP diastolic 52–61; Ht 182.9 cm; Wt 62.6 kg
[2020-01-21 06:04] LABS: BASOPHILS 1.1 % (0-2); EOSINOPHILS 7.5 % (0-7); HEMATOCRIT 34.6 % (42.0-54.0); HEMOGLOBIN 11.1 g/dL (13.5-17.5); IMMATURE GRANULOCYTES 0.2 % (0-5); LYMPHOCYTES 17.1 % (15-50); MCH 26.1 pg (26.0-34.0); MCHC 32.1 g/dL (31.0-37.0); MCV 81.2 fL (80.0-100.0); MONOCYTES 15.1 % (2-11); PLATELET COUNT 195 10x3/uL (130-400); RBC 4.26 10x6/uL (4.20-6.10); RDW 20.1 % (11.5-14.5); WBC 5.6 10x3/uL (4.8-10.8)
[2020-01-21 06:29] LABS: ALBUMIN 2.8 g/dL (3.4-5.0); ALKALINE PHOSPHATASE 192 U/L (30-120); ALT (SGPT) 34 U/L (10-68); BILIRUBIN - TOTAL 0.24 mg/dL (0.2-1.3); CALC OSMOLALITY 274 mosm/kg (275-300); CALCIUM 8.8 mg/dL (8.5-10.1); CARBON DIOXIDE 25.2 mmol/L (21.0-32.0); CHLORIDE - SERUM 101 mmol/L (98-107); CREATININE - SERUM 0.8 mg/dL (0.6-1.3); GLUCOSE 96 mg/dL (74-106); POTASSIUM - SERUM 4.1 mmol/L (3.5-5.1); PROTEIN - SERUM 6.5 g/dL (6.4-8.2); SODIUM 136 mmol/L (136-145); UREA NITROGEN 22 mg/dL (7-18); eGFR NON AFRICAN AMERICAN > 90 mL/min (90-120)
--- NOTE | 2020-01-21 10:40 | NUR ---
CAMPTOSER AND LEUCOVORIN CHEMO STARTED PER RIGHT INFUSAPORT AFTER BLOOD RETURN NOTED. VS 93/58 P 62 R 18 OXYGEN 96% RA. YELLOW CHEMO BUCKET IN ROOM WITH SIGN FOR DOUBLE FLUSH/DOUBLE GLOVE HUNG IN ROOM ON BATHROOM DOOR. PT RESTING EASY AT MOMENT. CALL LIGHT IN REACH. WILL CONTINUE TO MONTIOR.
--- NOTE | 2020-01-21 12:35 | NUR ---
FIRST OF 2 CHEMOS FINISHED. TOLERATED WELL. 5FU X 1 HUNG TO RIGHT INFUSAPORT WITH EXCELLENT BLOOD RETURN NOTED. VS 94/57 P 65 R 18 SAT 95 RA. CALL LIGHT IN REACH. YELLOW BUCKET IN ROOM.
--- NOTE | 2020-01-21 13:10 | NUR ---
ONE TIME DOSE OF 5FU COMPLETED. 5FU CONT INFUSION STARTED PER RIGHT INFUSAPORT AFTER BLOOD RETURN NOTED. WILL CONTINUE TO MONITOR
--- NOTE | 2020-01-21 16:43 | MORECARE ---
CASE MANAGEMENT DISCHARGE SUMMARY PATIENT: EDVIN ORTIZ UNIT: [id number] ADM DATE: 01/20/20 AGE: 54 : 65 SEX: M ROOM/BED: D.2224 AUTHOR: BOB,DOC PHYSICIAN: REFERRING PHYSICIAN: CHELSEY LEDBETTER MD DATE OF SERVICE: 01/21/20 Discharge Plan Patient Name: EDVIN ORITZ Facility: [facility]:[place] : 1965 Planned Disposition: Nursing Facility [facility] Cert Anticipated Discharge Date: Discharge Date: Expected LOS: Initial Reviewer: [email or web address] Initial Review Date: 01/21/2020 Generated: 01/21/20 5:43 pm Comments DCP- Discharge Planning Updated by [email or web address]: Soraida Crabtree on 01/21/20 3:[address] Patient Name: EDVIN ORTIZ Admission Status: Urgent Accout number: [id number] Admission Date: 01-20-2020 : 1965 Admission Diagnosis: Attending: Chelsey Ledbetter Current LOS: 1 Anticipated DC Date: Planned Disposition: Nursing Facility [facility] Cert Primary Insurance: [employer] INS EXCHANGE Discharge Planning Comments: CM met with patient to complete initial dc planning assessment. CM educated patient on the CM role and verbal consent given by patient to complete assessment. Patient lives at [facility] in a nursing home bed. At discharge patient plans to return and feels this is a safe discharge. Patient denies known discharge needs at this time. CM will continue to follow and will assist as needed with dc plans/needs. Mandrel Press Hand: Soraida Crabtree DCPIA - Discharge Planning Initial Assessment Updated by [email or web address]: Soraida Crabtree on 01/21/20 4:39 pm * Is the patient Alert and Oriented? Yes * How many steps to enter\exit or inside your home? 0/0 * PCP Dr. Cerda * Pharmacy [facility] * Preadmission Environment [facility] * Facility Name [facility] * ADLs Independent * Equipment None * List name and contact numbers for known caregivers / representatives who currently or will assist patient after discharge: None * Verbal permission to speak to the caregivers and representatives has been obtained from the patient. N/A * Community resources currently utilized None * Additional services required to return to the preadmission environment? No * Can the patient safely return to the preadmission environment? Yes * Has this patient been hospitalized within the prior 30 days at any hospital? Yes Patient Name: EDVIN ORTIZ Page 02368 at 1643 All edits/amendments must be made on the electronic document DICTATION DATE: 01/21/201642 GROUND CREW LINESMAN: RIKI 01/21/201642 RPT#: [id number] DC DATE: STATUS: ADM IN [facility] [address] [place] [address] END OF REPORT
[2020-01-22] VITALS: BP 101/58
[2020-01-22 04:00] VITALS: BP 97/47
[2020-01-22 05:34] LABS: BASOPHILS 0 % (0-2); EOSINOPHILS 0 % (0-7); HEMATOCRIT 36.2 % (42.0-54.0); HEMOGLOBIN 11.4 g/dL (13.5-17.5); IMMATURE GRANULOCYTES 0.1 % (0-5); LYMPHOCYTES 8.1 % (15-50); MCH 25.6 pg (26.0-34.0); MCHC 31.5 g/dL (31.0-37.0); MCV 81.3 fL (80.0-100.0); MEAN PLATELET VOLUME 9.1 fL (7.4-10.4); MONOCYTES 10.3 % (2-11); NEUTROPHILS 81.5 % (40-80); PLATELET COUNT 225 10x3/uL (130-400); RBC 4.45 10x6/uL (4.20-6.10); RDW 19.7 % (11.5-14.5); WBC 6.9 10x3/uL (4.8-10.8)
[2020-01-22 06:06] LABS: ALBUMIN 2.5 g/dL (3.4-5.0); ALKALINE PHOSPHATASE 189 U/L (30-120); ALT (SGPT) 36 U/L (10-68); BILIRUBIN - TOTAL 0.32 mg/dL (0.2-1.3); CALC OSMOLALITY 282 mosm/kg (275-300); CALCIUM 9.2 mg/dL (8.5-10.1); CHLORIDE - SERUM 105 mmol/L (98-107); CREATININE - SERUM 0.8 mg/dL (0.6-1.3); GLUCOSE 124 mg/dL (74-106); MAGNESIUM - SERUM 1.9 mg/dL (1.8-2.4); PHOSPHOROUS 3.7 mg/dL (2.5-4.9); POTASSIUM - SERUM 4.5 mmol/L (3.5-5.1); PROTEIN - SERUM 7.3 g/dL (6.4-8.2); SODIUM 139 mmol/L (136-145); UREA NITROGEN 25 mg/dL (7-18); eGFR NON AFRICAN AMERICAN > 90 mL/min (90-120)
[2020-01-22 09:01] VITALS: BP 95/65
--- NOTE | 2020-01-22 09:46 | NUR ---
PT ALERT X 4. BREATH SOUNDS CLEAR BILAT. PORT TO RIGHT CHEST, PATENT, DRESSING CDI. COLOSTOMY TO LLQ. PT REPORTING NO PAIN AT THIS TIME. REFUSES SCD'S. BED LOW, CALL LIGHT IN REACH. NO OTHER NEEDS AT THIS TIME.
[2020-01-22 13:28] VITALS: BP 95/60
[2020-01-22 17:01] VITALS: BP 101/62
--- NOTE | 2020-01-22 21:15 | NUR ---
5-FU CHEMO INFUSING TO RIGHT INFUSAPORT. PT TOLERATING WELL. NO SIDE EFFECTS NOTED. GOOD BLOOD RETURN. GAVE PERCOCET-10 FOR ABDOMINAL PAIN 05/03. NO OTHER NEEDS. WILL CONTINUE TO MONITOR.
[2020-01-22 22:08] VITALS: BP 100/64
[2020-01-23] VITALS: BP 103/70
--- NOTE | 2020-01-23 03:00 | NUR ---
PT ALERT & ORIENTED. CHEMO INFUSING. BLOOD RETURN GOOD. NO NEEDS. WILL CONTINUE TO MONITOR.
[2020-01-23 04:00] VITALS: BP 105/68
[2020-01-23 05:32] LABS: BASOPHILS 0 % (0-2); EOSINOPHILS 0 % (0-7); HEMATOCRIT 34.7 % (42.0-54.0); IMMATURE GRANULOCYTES 0.1 % (0-5); LYMPHOCYTES 8.8 % (15-50); MCH 25.6 pg (26.0-34.0); MCHC 31.7 g/dL (31.0-37.0); MCV 80.9 fL (80.0-100.0); MONOCYTES 10.3 % (2-11); NEUTROPHILS 80.8 % (40-80); PLATELET COUNT 222 10x3/uL (130-400); RBC 4.29 10x6/uL (4.20-6.10); RDW 19.9 % (11.5-14.5); WBC 6.7 10x3/uL (4.8-10.8)
[2020-01-23 05:48] LABS: ALBUMIN 2.5 g/dL (3.4-5.0); ALKALINE PHOSPHATASE 177 U/L (30-120); ALT (SGPT) 41 U/L (10-68); BILIRUBIN - TOTAL 0.21 mg/dL (0.2-1.3); CALC OSMOLALITY 282 mosm/kg (275-300); CALCIUM 8.9 mg/dL (8.5-10.1); CARBON DIOXIDE 23.7 mmol/L (21.0-32.0); CHLORIDE - SERUM 107 mmol/L (98-107); CREATININE - SERUM 0.7 mg/dL (0.6-1.3); GLUCOSE 135 mg/dL (74-106); PROTEIN - SERUM 6.9 g/dL (6.4-8.2); SODIUM 139 mmol/L (136-145); UREA NITROGEN 21 mg/dL (7-18); eGFR NON AFRICAN AMERICAN > 90 mL/min (90-120)
[2020-01-23 06:02] LABS: PHOSPHOROUS 2.7 mg/dL (2.5-4.9)
[2020-01-23 08:45] VITALS: BP 112/79
--- NOTE | 2020-01-23 09:21 | NUR ---
PT ALERT X 4. BREATH SOUNDS CLEAR BILAT. PORT TO RIGHT CHEST, PATENT, DRESSING CDI. PT REPORTING PAIN OF 6/10, WILL CONTINUE TO MONITOR. BED LOW,CALL LIGHT IN REACH. NO OTHER NEEDS AT THIS TIME.
[2020-01-23] MEDS ORDERED: LOPERAMIDE HCL2 MG PO (11:23)
--- NOTE | 2020-01-23 12:19 | MORECARE ---
CASE MANAGEMENT DISCHARGE SUMMARY PATIENT: EDVIN ORTIZ UNIT: [id number] ADM DATE: 01/20/20 AGE: 54 : 65 SEX: M ROOM/BED: D.2224 AUTHOR: BOB,DOC PHYSICIAN: REFERRING PHYSICIAN: CHELSEY LEDBETTER MD DATE OF SERVICE: 01/23/20 Discharge Plan Patient Name: EDVIN ORTIZ Facility: [facility]:[place] : 1965 Planned Disposition: Nursing Facility [facility] Cert Anticipated Discharge Date: Discharge Date: Expected LOS: Initial Reviewer: [email or web address] Initial Review Date: 01/21/2020 Generated: 01/23/20 1:19 pm Comments DCP- Discharge Planning Updated by [email or web address]: Stefani King on 01/23/20 11:[address] DC PLAN: Return to [facility] today via ambulance in medicaid bed. Cm spoke to Tammy who stated could return today by ambulance. Nurse report to be called to [phone]. Stefani King RN, [facility] DCP- Discharge Planning Updated by [email or web address]: Soraida Crabtree on 01/21/20 3:[address] Patient Name: EDVIN ORTIZ Admission Status: Urgent Accout number: [id number] Admission Date: 01-20-2020 : 1965 Admission Diagnosis: Attending: Chelsey Ledbetter Current LOS: 1 Anticipated DC Date: Planned Disposition: Nursing Facility [facility] Cert Primary Insurance: [facility] INS EXCHANGE Discharge Planning Comments: CM met with patient to complete initial dc planning assessment. CM educated patient on the CM role and verbal consent given by patient to complete assessment. Patient lives at [facility] in a snf bed. At discharge patient plans to return and feels this is a safe discharge. Patient denies known discharge needs at this time. CM will continue to follow and will assist as needed with dc plans/needs. Curriculum Coordinator: Soraida Crabtree DCPIA - Discharge Planning Initial Assessment Updated by [email or web address]: Soraida Crabtree on 01/21/20 4:39 pm * Is the patient Alert and Oriented? Yes * How many steps to enter\exit or inside your home? 0/0 * PCP Dr. Cerda * Pharmacy [facility] * Preadmission Environment [employer] * Facility Name [facility] * ADLs Independent * Equipment None * List name and contact numbers for known caregivers / representatives who currently or will assist patient after discharge: None * Verbal permission to speak to the caregivers and representatives has been obtained from the patient. N/A * Community resources currently utilized None * Additional services required to return to the preadmission environment? No * Can the patient safely return to the preadmission environment? Yes * Has this patient been hospitalized within the prior 30 days at any hospital? Yes Last DP export: 01/21/20 3:43 p Patient Name: EDVIN ORTIZ Page 12638 at 1219 All edits/amendments must be made on the electronic document DICTATION DATE: 01/23/201218 SALES AND MERCHANDISING REPRESENTATIVE: RIKI 01/23/20 1219 RPT#: [id number] DC DATE: STATUS: ADM IN [facility] [address] [place] [address] END OF REPORT
[2020-01-23 12:29] VITALS: BP 102/72
--- NOTE | 2020-01-23 14:45 | NUR ---
DISCHARGE PAPERWORK SIGNED, ALL QUESTIONS ANSWERED. RIGHT CHEST PORT FLUSHED WITH HEPARIN AND DEACCESSED. REPORT CALLED TO SWETHA AT [facility]. PICKED UP BY [facility] FOR TRANSPORT.
--- NOTE | 2020-01-24 09:29 | MORECARE ---
CASE MANAGEMENT DISCHARGE SUMMARY PATIENT: EDVIN ORTIZ UNIT: [id number] ADM DATE: 01/20/20 AGE: 54 : 65 SEX: M ROOM/BED: D.2224 AUTHOR: BOB,DOC PHYSICIAN: REFERRING PHYSICIAN: CHELSEY LEDBETTER MD DATE OF SERVICE: 01/24/20 Discharge Plan Patient Name: EDVIN ORTIZ Facility: [facility]:[place] : 1965 Planned Disposition: Nursing Facility [facility] Cert Anticipated Discharge Date: Discharge Date: 01/23/2020 Expected LOS: Initial Reviewer: [email or web address] Initial Review Date: 01/21/2020 Generated: 01/24/20 10:29 am Comments DCP- Discharge Planning Updated by [id number]: Stefani King on 01/23/20 11:[address] DC PLAN: Return to [facility] today via ambulance in medicaid bed. Cm spoke to Tammy who stated could return today by ambulance. Nurse report to be called to [phone]. Stefani King RN, [facility] DCP- Discharge Planning Updated by [email or web address]: Soraida Crabtree on 01/21/20 3:[address] Patient Name: EDVIN ORTIZ Admission Status: Urgent Accout number: [id number] Admission Date: 01-20-2020 : 1965 Admission Diagnosis: Attending: Chelsey Ledbetter Current LOS: 1 Anticipated DC Date: Planned Disposition: Nursing Facility [facility] Cert Primary Insurance: [facility] INS EXCHANGE Discharge Planning Comments: CM met with patient to complete initial dc planning assessment. CM educated patient on the CM role and verbal consent given by patient to complete assessment. Patient lives at [facility] in a assisted bed. At discharge patient plans to return and feels this is a safe discharge. Patient denies known discharge needs at this time. CM will continue to follow and will assist as needed with dc plans/needs. Crabber: Soraida Crabtree DCPIA - Discharge Planning Initial Assessment Updated by [email or web address]: Soraida Crabtree on 01/21/20 4:39 pm * Is the patient Alert and Oriented? Yes * How many steps to enter\exit or inside your home? 0/0 * PCP Dr. Cerda * Pharmacy [facility] * Preadmission Environment [facility] * Facility Name [facility] * ADLs Independent * Equipment None * List name and contact numbers for known caregivers / representatives who currently or will assist patient after discharge: None * Verbal permission to speak to the caregivers and representatives has been obtained from the patient. N/A * Community resources currently utilized None * Additional services required to return to the preadmission environment? No * Can the patient safely return to the preadmission environment? Yes * Has this patient been hospitalized within the prior 30 days at any hospital? Yes Last DP export: 01/23/20 11:19 am Patient Name: EDVIN ORTIZ Page 50122 at 0929 All edits/amendments must be made on the electronic document DICTATION DATE: 01/24/20928 HEEL SEAT LASTER: RIKI 01/24/20928 RPT#: [id number] DC DATE:01/23/20 STATUS: DIS IN [facility] [address] [place] [address] END OF REPORT
== END 2020-01-23 18:12 | DRG 847 ==
LOC: D.MS 09:19
PROVIDERS: ADMIT Internal Medicine Hematology & Oncology; ATTEND Internal Medicine Hematology & Oncology
DX: Z51.11 Encounter for antineoplastic chemotherapy (principal); C18.9 Malignant neoplasm of colon, unspecified; C78.7 Secondary malignant neoplasm of liver and intrahepatic bile duct; Z68.1 Body mass index [BMI] 19.9 or less, adult; E03.9 Hypothyroidism, unspecified; G89.29 Other chronic pain; R63.4 Abnormal weight loss; D63.8 Anemia in other chronic diseases classified elsewhere

== ENCOUNTER → 2020-02-03 08:02 | Outpatient (CLI) | payer OTHER ==
[2020-01-21 11:39] VITALS: BMI 18.7
[~2020-02-03 08:02] MED LIST changes: +LOPERAMIDE HCL2 MG PO
== END | disposition home or self-care (01) ==
LOC: D.CT 08:02
PROVIDERS: ATTEND Internal Medicine Hematology & Oncology
DX: C19 Malignant neoplasm of rectosigmoid junction (principal); C78.7 Secondary malignant neoplasm of liver and intrahepatic bile duct; I10 Essential (primary) hypertension; Z72.0 Tobacco use

== ENCOUNTER 2020-03-14 09:22 | Outpatient (CLI) | payer OTHER ==
[~2020-03-14] VITALS: Ht 182.9 cm; Wt 61.4 kg
[2020-03-14 10:30] LABS: BASOPHILS 0.3 % (0-2); EOSINOPHILS 0 % (0-7); HEMATOCRIT 33.8 % (42.0-54.0); HEMOGLOBIN 10.9 g/dL (13.5-17.5); IMMATURE GRANULOCYTES 0.3 % (0-5); LYMPHOCYTES 6.2 % (15-50); MCH 26.9 pg (26.0-34.0); MCHC 32.2 g/dL (31.0-37.0); MCV 83.5 fL (80.0-100.0); MEAN PLATELET VOLUME 9.4 fL (7.4-10.4); MONOCYTES 3.2 % (2-11); PLATELET COUNT 194 10x3/uL (130-400); RBC 4.05 10x6/uL (4.20-6.10); RDW 16.8 % (11.5-14.5); WBC 3.4 10x3/uL (4.8-10.8)
[2020-03-14 10:33] LABS: ALBUMIN 3.1 g/dL (3.4-5.0); ANION GAP 13.4 mmol/L (8-16); BILIRUBIN - DIRECT 0.18 mg/dL (0.00-0.30); BILIRUBIN - INDIRECT 0.12 mg/dL (0.00-1.00); BILIRUBIN - TOTAL 0.3 mg/dL (0.2-1.3); CALCIUM 9.4 mg/dL (8.5-10.1); CARBON DIOXIDE 24.7 mmol/L (21.0-32.0); CREATININE - SERUM 2.1 mg/dL (0.6-1.3); POTASSIUM - SERUM 4.1 mmol/L (3.5-5.1); PROTEIN - SERUM 7.5 g/dL (6.4-8.2)
--- NOTE | 2020-03-14 10:55 | NUR ---
PAIN MEDS ORDERED
[2020-03-14 12:06] VITALS: BP 86/50
--- NOTE | 2020-03-14 12:15 | NUR ---
PORT ACCESSED USING MILLINERY TEACHER,19G. BLOOD RETURN CONFIRMED.MEDS ORDERED. ASSESSMENT PER FLOW SHEET.
[2020-03-14 12:56] VITALS: BP 87/50; Ht 182.9 cm; Wt 61.4 kg
--- NOTE | 2020-03-14 13:07 | NUR ---
CHEMO ORDERED VIA PORT. BLOOD RETURN CONFIRNED
[2020-03-14 15:44] VITALS: BP 83/65
--- NOTE | 2020-03-14 17:00 | NUR ---
PATIENT DISCONNECTED CHEMO LINE AND GOT SOME LIQUID ON HIS SHIRT. PATIENT CLEANED AND CLOTHES CHANGED.
--- NOTE | 2020-03-14 17:23 | NUR ---
CHEMO COMPLETE. PORT FLUSHED WITH SALINE AND HEPARIN PER PROTOCOL. NEEDLE DC'D
--- NOTE | 2020-03-14 17:56 | NUR ---
REPORT TO PAZ AT [facility]
--- NOTE | 2020-03-14 20:58 | NUR ---
193)LIFENET HERE TRANSFERED BACK TO [facility] VIA STRETCHER.
== END 2020-03-14 19:30 | disposition home or self-care (01) ==
LOC: D.OPS 09:22 → D.MS 09:23 → D.OPS 12:20 → D.MS 12:20 → D.OPS 19:30
PROVIDERS: ATTEND Internal Medicine Hematology & Oncology
DX: C19 Malignant neoplasm of rectosigmoid junction (principal)

== ENCOUNTER 2020-03-15 04:06 | Inpatient (IN) | payer OTHER ==
[~2020-03-15] VITALS: Ht 182.9 cm; Wt 74.8 kg
[2020-03-15 04:44] LABS: BASOPHILS 0.3 % (0-2); EOSINOPHILS 0.3 % (0-7); HEMATOCRIT 32.2 % (42.0-54.0); HEMOGLOBIN 10.5 g/dL (13.5-17.5); IMMATURE GRANULOCYTES 0.6 % (0-5); LYMPHOCYTES 8.2 % (15-50); MCH 27.1 pg (26.0-34.0); MCHC 32.6 g/dL (31.0-37.0); MCV 83.2 fL (80.0-100.0); MEAN PLATELET VOLUME 9.5 fL (7.4-10.4); MONOCYTES 3.4 % (2-11); NEUTROPHILS 87.2 % (40-80); PLATELET COUNT 167 10x3/uL (130-400); RBC 3.87 10x6/uL (4.20-6.10); RDW 16.9 % (11.5-14.5); WBC 3.3 10x3/uL (4.8-10.8)
[2020-03-15 04:52] LABS: ANION GAP 14.7 mmol/L (8-16); CALCIUM 9.3 mg/dL (8.5-10.1); CARBON DIOXIDE 24.3 mmol/L (21.0-32.0)
[2020-03-15 04:53] LABS: APTT 41.9 SECONDS (22.8-39.4); CREATININE - SERUM 1.3 mg/dL (0.6-1.3); INR 0.99 (0.85-1.17); PROTIME 13.1 SECONDS (11.6-15.0)
[2020-03-15 04:58] LABS: ALBUMIN 2.8 g/dL (3.4-5.0); BILIRUBIN - TOTAL 0.26 mg/dL (0.2-1.3); PROTEIN - SERUM 7.1 g/dL (6.4-8.2)
[2020-03-15 06:55] VITALS: BP 140/72
[2020-03-15 07:26] VITALS: BP 140/72; BMI 22.4
[2020-03-15 09:21] VITALS: BP 92/60
[2020-03-15 10:19] VITALS: BMI 22.3
--- NOTE | 2020-03-15 11:05 | NUR ---
I have reviewed this patient and I concur with the Shift Assessment completed by the Licensed Practical Nurse today this shift.
[2020-03-15 12:11] VITALS: Ht 182.9 cm; Wt 74.8 kg
[2020-03-15 13:45] VITALS: BP 103/68
[2020-03-15 17:06] VITALS: BP 104/70
[2020-03-15 20:00] VITALS: BP 91/87
--- NOTE | 2020-03-15 23:30 | NUR ---
I have reviewed this patient and I concur with the Shift Assessment completed by the Licensed Practical Nurse today this shift.
[2020-03-16 04:00] VITALS: BP 103/68
--- NOTE | 2020-03-16 04:08 | NUR ---
PT RESTING IN BED. EYES CLOSED. NO SIGNS OF DISTRESS. BREATHING EVEN AND UNLABORED. IV SITE RT FA DRESSING CLEAN DRY AND INTACT. NO SIGNS OF INFECTION OR INFULTRATION. LT ARM WEAKNESS IMPAIRED ROM. SKIN CLEAN DRY AND INTACT. WILL CONTINUE PLAN OF CARE. CALL LIGHT IN REACH. BED LOWERED AND LOCKED. BED RAILS UPX2
[2020-03-16 05:15] LABS: BASOPHILS 0.3 % (0-2); EOSINOPHILS 1.4 % (0-7); HEMATOCRIT 33.4 % (42.0-54.0); HEMOGLOBIN 10.7 g/dL (13.5-17.5); IMMATURE GRANULOCYTES 0.3 % (0-5); LYMPHOCYTES 12.9 % (15-50); MCH 26.8 pg (26.0-34.0); MCV 83.7 fL (80.0-100.0); MEAN PLATELET VOLUME 9.9 fL (7.4-10.4); MONOCYTES 5.1 % (2-11); PLATELET COUNT 197 10x3/uL (130-400); RBC 3.99 10x6/uL (4.20-6.10); RDW 16.9 % (11.5-14.5)
[2020-03-16 05:46] LABS: ALBUMIN 2.7 g/dL (3.4-5.0); ALKALINE PHOSPHATASE 233 U/L (30-120); ALT (SGPT) 34 U/L (10-68); BILIRUBIN - TOTAL 0.36 mg/dL (0.2-1.3); CALCIUM 8.4 mg/dL (8.5-10.1); CARBON DIOXIDE 23.4 mmol/L (21.0-32.0); CHLORIDE - SERUM 97 mmol/L (98-107); GLUCOSE 96 mg/dL (74-106); MAGNESIUM - SERUM 1.6 mg/dL (1.8-2.4); POTASSIUM - SERUM 4.3 mmol/L (3.5-5.1); PROTEIN - SERUM 6.3 g/dL (6.4-8.2); SODIUM 132 mmol/L (136-145)
[2020-03-16 05:49] LABS: CALC OSMOLALITY 267 mosm/kg (275-300); CREATININE - SERUM 0.8 mg/dL (0.6-1.3); UREA NITROGEN 20 mg/dL (7-18); eGFR NON AFRICAN AMERICAN > 90 mL/min (90-120)
--- NOTE | 2020-03-16 07:50 | NUR ---
AWAKE AND ALERT. ORIENTED X3. REQUESTED AND GIVEN ONE PERCOCOET PO FOR C/O LEFT ARM PAIN LEVEL 9. WILL MONITOR. LUNGS ARE CLEAR BILATERALLY, NO COUGH NOTED.SKIN IS INTACT WITHOUT REDNESS.. DENIES NUMBNESS OR TINGLING TO LEFT ARM. IV TO RIGHT WRIST IS PATENT WITHOUT REDNESS AT INSERTION SITE. RIGHT PORT NOT ACCESSED. COLOSTOMY TO LEFT LOWER QUAD IS PATENT WITH PINK VIABLE STOMA. DENIES NEEDS.
[2020-03-16 07:57] LABS: BACTERIA FEW /hpf (NEGATIVE); BILIRUBIN NEGATIVE (NEGATIVE); EPITHELIAL CELLS RARE /hpf (0-5); GLUCOSE NEGATIVE (NEGATIVE); KETONE SMALL mg/dL (NEGATIVE); NITRITE NEGATIVE (NEGATIVE); RED CELLS - URINE 0-5 /hpf (0-5); WHITE CELLS - URINE NSEEN /hpf (NEGATIVE)
[2020-03-16 08:48] VITALS: BP 106/72
--- NOTE | 2020-03-16 10:00 | NUR ---
ATE MOST OF BREAKFAST PER SELF. TOOK AM MEDS WITHOUT DIFFICULTY. REPORTS PAIN IMPROVED. DENIES NEEDS.
[2020-03-16 13:01] VITALS: BP 105/75
--- NOTE | 2020-03-16 14:20 | NUR ---
DISCHARGE ORDERS RECEIVED. REPORT CALLED TO FAWAD MCKEON LPN AT [facility]. ALL QUESTIONS ANSWERED. IV TO RIGHT WRIST D/C WITH CATHETER INTACT. ALL QUESTIONS ANSWERED. ASSISTED TO DRESS PER STAFF. WAITING ON TRANSPORT TO DISCHARGE.
--- NOTE | 2020-03-16 15:21 | NUR ---
DISCHARGED BACK TO [facility] VIA THEIR TRANSPORT. ALL BELONGINGS WITH PATIENT. NO NEW PRESCRIPTIONS NEEDED.
--- NOTE | 2020-03-16 17:53 | MORECARE ---
CASE MANAGEMENT DISCHARGE SUMMARY PATIENT: EDVIN ORTIZ UNIT: [id number] ADM DATE: 03/15/20 AGE: 54 : 65 SEX: M ROOM/BED: D.2228 AUTHOR: JULIA ROJAS PHYSICIAN: REFERRING PHYSICIAN: RON PARRY MD DATE OF SERVICE: 03/16/20 Discharge Plan Patient Name: EDVIN ORTIZ Facility: [facility] : 1965 Planned Disposition: Nursing Facility [facility] Cert Anticipated Discharge Date: Discharge Date: 03/16/2020 Expected LOS: Initial Reviewer: [email or web address] Initial Review Date: 03/15/2020 Generated: 03/16/20 6:53 pm Comments DCP- Discharge Planning Updated by [email or web address]: Margret Hogue on 03/16/20 4:[address] Patient Name: EDVIN ORTIZ Admission Status: ER Accout number: [id number] Admission Date: 03-15-2020 : 1965 Admission Diagnosis: Attending: RON PARRY Current LOS: 1 Anticipated DC Date: Planned Disposition: Nursing Facility [facility] Cert Primary Insurance: [id number] Discharge Planning Comments: PATIENT IS A RESIDENT AT [facility] AND PLANS TO RETURN THERE UPON DISCHARGE. CM WILL CONTINUE TO FOLLOW AND ASSIST NEEDED WITH DISCHARGE PLANNING / NEEDS. Tin Pot Operator: Margret Hogue DCPIA - Discharge Planning Initial Assessment Updated by [email or web address]: Margret Hogue on 03/16/20 5:49 pm * Is the patient Alert and Oriented? Yes * PCP [facility] * Pharmacy [facility] * Preadmission Environment Knife Operator Alf * Facility Name [facility] * ADLs Independent * Verbal permission to speak to the caregivers and representatives has been obtained from the patient. N/A * Community resources currently utilized None * Additional services required to return to the preadmission environment? No * Can the patient safely return to the preadmission environment? Yes * Has this patient been hospitalized within the prior 30 days at any hospital? Yes Patient Name: EDVIN ORTIZ Page [id number] at 1753 All edits/amendments must be made on the electronic document DICTATION DATE: 03/16/201752 PACKING HOUSE LABORER: RIKI 03/16/201752 RPT#: [id number] DC DATE:03/16/20 STATUS: DIS IN [facility] [address] [place] [address] END OF REPORT
== END 2020-03-16 15:22 | DRG 543 ==
LOC: D.ER 04:06 → D.MS 04:43
PROVIDERS: Family Medicine; ADMIT Internal Medicine Nephrology; ATTEND Internal Medicine Nephrology
DX: M84.422A Pathological fracture, left humerus, initial encounter for fracture (principal); C18.9 Malignant neoplasm of colon, unspecified; C78.7 Secondary malignant neoplasm of liver and intrahepatic bile duct; N17.9 Acute kidney failure, unspecified; C40.02 Malignant neoplasm of scapula and long bones of left upper limb; E87.1 Hypo-osmolality and hyponatremia; E44.0 Moderate protein-calorie malnutrition; E03.9 Hypothyroidism, unspecified; D63.8 Anemia in other chronic diseases classified elsewhere; W19.XXXA Unspecified fall, initial encounter; Z68.22 Body mass index [BMI] 22.0-22.9, adult